=== PATIENT | male | born 1945 | race Caucasian/White ===

== ENCOUNTER 2021-06-17 19:39 | Inpatient (IN) | payer MEDICARE, OTHER, SELFPAY ==
--- NOTE | ~2021-06-17 | XR_ITS ---
EXAMINATION: XR chest 1V portable EXAM DATE: 06/20/2021 10:09 INDICATION: Increasing WBC. TECHNIQUE: Portable AP frontal chest x-ray was obtained. There is no prior study for comparison. FINDINGS: The lungs are clear. There are no pleural effusions. Cardiac silhouette is prominent but magnified on this AP technique. There is no pneumothorax suspected. The bones and soft tissues are unremarkable. IMPRESSION: No acute cardiopulmonary findings. Reviewed, dictated and finalized at location A.
--- NOTE | ~2021-06-17 | XR_ITS ---
EXAMINATION: XR abdomen/kub 1V EXAM DATE: 06/18/2021 14:40 INDICATION: Gross hematuria. TECHNIQUE: Frontal projection of the upper abdomen, frontal projection lower abdomen/pelvis for inter pretation. Correlation is made to CT abdomen pelvis same date. FINDINGS: There is moderate amount of colonic gas. Mild to moderate dextroscoliosis. Moderate lumbar spondylosis. No suspicious soft tissue calcifications identified. No small bowel obstruction. IMPRESSION: No suspicious calcifications. Reviewed, dictated and finalized at location A.
--- NOTE | ~2021-06-17 | XR_ITS ---
EXAMINATION: XR cystogram 1-2V EXAM DATE: 06/19/2021 12:16 INDICATION: Possible extraluminal contrast. Abnormal CT scan. Patient reports additional history of h aving 4.3 L of urine drained out of bladder upon Mejia catheter insertion. TECHNIQUE: Fluoroscopic guidance used during cystogram performed by Dr. Chapo Villarreal, radiologist, thr ough Mejia catheter in place on patient arrival. An Omnipaque 350/saline solution was used and allowe d to infuse through the Mejia catheter under gravity. Cripple Chaser image, fluoroscopic images and postevacua tion image were obtained. Total fluoroscopic time of 0.2 minutes. The DAP for this procedure was 66 mGym2. A total of 24 images obtained for the exam. Correlation is made to CT scan from yesterday. FINDINGS: Cripple Chaser image is unremarkable. A total of 850 mL saline (this includes 100 mL Omnipaque 350) was instilled into the patient's bladder. Patient did not report any discomfort in spite of this abno rmally high volume. There was no contrast extravasation, no retained contrast on the post evacuation image. No ureteral reflux was demonstrated. IMPRESSION: Abnormally high bladder capacity, likely accounts for appearance on CT. Reviewed, dictated and finalized at location A. IMPRESSION: Abnormally high bladder capacity, likely accounts for appearance o n CT.
--- NOTE | ~2021-06-17 | CT_ITS ---
EXAMINATION: CT abdomen pelvis wo/w con EXAM DATE: 06/18/2021 15:02 INDICATION: Gross hematuria. TECHNIQUE: Spiral CT of the abdomen and pelvis was performed following intravenous injection of 100 m L Omnipaque 350. Axial, coronal and sagittal images of the abdomen and pelvis were reviewed. The do se-length product (DLP) for this examination was 2233.01 mGy-cm. The exposure was tailored according to patient size (auto mA exposure control), and iterative reconstruction (ASIR) was used as addition al dose reduction technique. There is no prior study for comparison. FINDINGS: There is a Mejia catheter in position. Contrast within both ureters, the bladder and Mejia tube. There is also extraluminal contrast which is external to the bladder, appears to be contained s mall pockets, and may indicate fistulous tracts to small bowel loops. There are sigmoid colonic diver ticula, but no contrast within the colon. No inflammation surrounding the diverticula. No small bowel obstruction. The liver, spleen, adrenal glands and pancreas are unremarkable. Gallbladder is unremarkable. No bi liary obstruction. Portal and splenic veins are patent. Kidneys enhance symmetrically. There is no hydronephrosis. The prostate is unremarkable. There is no retroperitoneal or pelvic lymphadenopat hy. There is moderate to severe scattered arteriosclerotic disease. Small to moderate left inguinal , small right inguinal fat-containing hernias. There is moderate-sized umbilical fat-containing herni a. There are no findings to suggest appendicitis. The stomach and small bowel are unremarkable. There is expected amount of colonic stool. No free intraperitoneal gas. The heart is normal in size. T here are no pericardial or pleural effusions. The lung bases are unremarkable. There are no osteobl astic or osteolytic lesions identified. IMPRESSION: 1. Bladder Mejia catheter, extra luminal contrast anterior to bladder, contained pockets and/or fist ulous communications with small bowel. Correlate with urinalysis. 2. Moderate colonic diverticulosis. 3. Fat-containing hernias. Reviewed, dictated and finalized at location A. IMPRESSION: 1. Bladder Mejia catheter, extra luminal contrast anterior to bladder, contain ed pockets and/or fistulous communications with small bowel. Correlate with uri nalysis. 2. Moderate colonic diverticulosis. 3. Fat-containing hernias.
[2021-06-17 19:49] VITALS: BP 135/71; PULSE 118; RESP 18; TEMP 36.6; O2SAT 98
[2021-06-17 20:08] LABS: Add Urine Microscopic? YES; Appearance Urine Cloudy (Clear); Bilirubin Urine Negative (Negative); Blood Urine 2+ (Negative); Color Urine Amber (Yellow); Glucose Urine UA 3+ mg/dL (Negative); Ketones Urine Negative (Negative); Leukocyte Esterase Ur Negative LEU/UL (Negative); Mucus Urine Rare /lpf; Nitrate Urine Negative (Negative); Protein Urine 2+ mg/dL (Negative); RBC Urine >75 /hpf (0-2); Specific Grav Ur 1.016 (1.001-1.035); Squamous Epithelial Cell Urine Occasional /hpf (Few); Urobilinogen Urine Negative mg/dL (<2.0); WBC Urine 0-3 /hpf
[2021-06-17 20:09] LABS: Basophils Absolute Auto 0.1 K/mm3 (0.0-0.1); Basophils Percent Auto 0.5 % (0.2-1.2); Eosinophils Absolute Auto 0.1 K/mm3 (0-0.3); Eosinophils Percent Auto 0.9 % (0-4.4); Hematocrit 43.4 % (42.0-52.0); Hemoglobin 14.2 g/dL (14.0-18.0); Immature Granulocyte Absolute 0.06 K/mm3 (0.00-0.031); Immature Granulocyte Percent A 0.4 % (0-0.5); Lymphocytes Absolute Auto 2.08 K/mm3 (0.9-3.2); Lymphocytes Percent Auto 13.7 % (18.3-44.2); Mean Corpuscular HGB Conc 32.7 g/dl (32-36); Mean Corpuscular Hemoglobin 31.3 pg (26-34); Mean Corpuscular Volume 95.8 fl (80-100); Mean Platelet Volume 9.4 fl (7.4-10.4); Monocytes Absolute Auto 1.2 K/mm3 (0.1-0.6); Monocytes Percent Auto 7.7 % (2.6-8.5); Neutrophils Absolute Auto 11.7 K/mm3 (1.3-6.7); Neutrophils Percent Auto 76.8 % (45.5-73.1); Platelet Count Result 304 k/mm3 (150-375); Red Blood Count 4.53 M/mm3 (4.6-6.20); White Blood Count 15.2 K/mm3 (4.5-10.0)
[2021-06-17 20:17] LABS: Anion Gap 16 mmol/L (8-16); Blood Urea Nitrogen 29 mg/dL (9-20); Carbon Dioxide 19 mmol/L (22-30); Chloride 103 mmol/L (98-107); Estimated CRCL calculation 53 ml/min; Estimated Glomerular Filt Rate 54; Glucose 207 mg/dL (65-110); Sodium 138 mmol/L (137-145)
--- NOTE | 2021-06-17 20:35 | ED.MALEGU ---
HPI - Male Genitourinary General Chief complaint: Urogenital-Male Stated complaint: Hematuria Time Seen by Provider: 06/17/21 19:48 History of Present Illness HPI Narrative: Patient is a 75-year-old male who presents ER with hematuria. Began this afternoon. Denies burning urination urinary frequency urgency. Feels like he has been urinating normally. Denies any lower abdominal pain. No fevers or chills or sweats. Has not had issues like this before. He is not on blood thinners. Related Data Home Medications Medication Instructions Recorded Confirmed atorvastatin [Lipitor] 80 mg PO DAILY 06/17/21 cetirizine [Zyrtec] 10 mg PO DAILY 06/17/21 empagliflozin [Jardiance] 10 mg PO DAILY 06/17/21 hydrochlorothiazide 12.5 mg PO DAILY 06/17/21 lisinopril 20 mg PO DAILY 06/17/21 metformin 1,000 mg PO BID 06/17/21 pioglitazone [Actos] 45 mg PO DAILY 06/17/21 sitagliptin [Januvia] 100 mg PO DAILY 06/17/21 Allergies Allergy/AdvReac Type Severity Reaction Status Date / Time No Known Allergies Allergy Verified 06/17/21 20:09 Review of Systems Review of Systems: All systems reviewed & are unremarkable except as noted in HPI and below Constitutional: Constitutional: Denies chills, Denies fever(s) and Denies weakness Gastrointestinal: Gastrointestinal: Denies abdominal pain, Denies nausea and Denies vomiting Genitourinary: Genitourinary: Reports hematuria, Denies oliguria, Denies dysuria and Denies urinary frequency PMFSH Past Medical History Medical History (Updated 06/17/21 @ 21:53 by Brigido Allen MD) Diabetes Hyperlipidemia Hypertension Surgical History Surgical History No pertinent past surgical history Social History Social History Smoking status: Never smoker Exam Narrative: GENERAL: Well-appearing, well-nourished, and in no acute distress. HEAD: Normocephalic, atraumatic. CHEST: Clear to auscultation. No respiratory distress. HEART: Regular rate and rhythm. Normal peripheral pulses. ABDOMEN: Soft, nontender, nondistended. EXTREMITIES: Normal range of motion. No edema. NEURO: Alert and oriented x3. PSYCH: Normal mood and affect. Course Course Emergency Course: Patient with 4300 mL out of his Mejia that is bloody without clots. Discussed with urology. Will admit for observation for possible postobstructive diuresis. Recommends checking electrolytes every 8 hours, placing the patient on D5 half-normal saline at 75 mL/h, and patient may drink water at his desire. Patient aware of treatment plan. Admit to hospitalist service. Vital Signs Vital signs: Vital Signs Temperature 97.8 F 06/17/21 19:49 Pulse Rate 118 H 06/17/21 19:49 Respiratory Rate 18 06/17/21 19:49 Blood Pressure 135/71 06/17/21 19:49 Pulse Oximetry 98 06/17/21 19:49 Temperature 97.8 F 06/17/21 19:49 Pulse Rate 84 06/17/21 21:08 Respiratory Rate 18 06/17/21 21:08 Blood Pressure 138/67 06/17/21 21:08 Pulse Oximetry 98 06/17/21 21:08 MDM - Male Genitourinary Lab Data Result diagrams: 06/17/21 20:03 06/17/21 20:03 Labs: Lab Results 06/17/21 06/17/21 06/17/21 Range/Units 19:56 20:03 20:03 WBC 15.2 H (4.5-10.0) K/mm3 RBC 4.53 L (4.6-6.20) M/mm3 Hgb 14.2 (14.0-18.0) g/dL Hct 43.4 (42.0-52.0) % MCV 95.8 (80-100) fl MCH 31.3 (26-34) pg MCHC 32.7 (32-36) g/dl RDW 15.0 H (11.5-14.5) % Plt Count 304 (150-375) k/mm3 MPV 9.4 (7.4-10.4) fl Immature Gran % (Auto) 0.4 (0-0.5) % Neut % (Auto) 76.8 H (45.5-73.1) % Lymph % (Auto) 13.7 L (18.3-44.2) % Hart % (Auto) 7.7 (2.6-8.5) % Eos % (Auto) 0.9 (0-4.4) % Baso % (Auto) 0.5 (0.2-1.2) % Lymph # (Auto) 2.08 (0.9-3.2) K/mm3 Hart # (Auto) 1.2 H (0.1-0.6) K/mm3 Eos # (Auto) 0.1 (0-0.3) K/mm3 Bas
[2021-06-17 21:08] VITALS: BP 138/67; PULSE 84; RESP 18; O2SAT 98
--- NOTE | 2021-06-17 21:08 | PC.NURSE ---
ERP notified about 2800 ML urine .
--- NOTE | 2021-06-17 21:34 | PM.IMHP ---
H&P: HPI History of Present Illness Date/Time: 06/17/21 21:34 Chief Complaint: 75 years old male with past medical history of hyperlipidemia, hypertension, diabetes mellitus, presented to the hospital with hematuria no aggravating or relieving factor no difficulty with urination no fever or chills denies dysuria at the ER patient was found to have urine retention Mejia catheter was placed more than 4000 mL of urine was drained urology was consulted, plan to monitor electrolytes every 6-8 hours monitor urine output patient at risk of post obstructive diuresis will admit on IV fluid plan for CT scan in the morning per Urology. Review of Systems Review of Systems: All systems reviewed & are unremarkable except as noted in HPI and below PMFSH Past Medical History Medical History (Updated 06/17/21 @ 21:53 by Brigido Allen MD) Diabetes Hyperlipidemia Hypertension Surgical History Surgical History No pertinent past surgical history Social History Social History Smoking status: Never smoker Meds Home Medications and Allergies Home Medications Medication Instructions Recorded Confirmed Type atorvastatin [Lipitor] 80 mg PO DAILY 06/17/21 History cetirizine [Zyrtec] 10 mg PO DAILY 06/17/21 History empagliflozin [Jardiance] 10 mg PO DAILY 06/17/21 History hydrochlorothiazide 12.5 mg PO DAILY 06/17/21 History lisinopril 20 mg PO DAILY 06/17/21 History metformin 1,000 mg PO BID 06/17/21 History pioglitazone [Actos] 45 mg PO DAILY 06/17/21 History sitagliptin [Januvia] 100 mg PO DAILY 06/17/21 History Allergies Allergy/AdvReac Type Severity Reaction Status Date / Time No Known Allergies Allergy Verified 06/17/21 20:09 Vital Signs Vital Signs - 24 hr 06/17/21 19:49 06/17/21 21:08 Temperature 97.8 F Pulse Rate 118 H 84 Respiratory Rate 18 18 Blood Pressure 135/71 138/67 Pulse Oximetry 98 98 Exam Const: General: no acute distress HENMT: Mouth: Yes dry mucous membranes Eyes: Sclera: sclerae normal Neck: Neck: supple Resp: Auscultation: clear to auscultation bilaterally Cardio: Rate: regular rate Rhythm: regular rhythm GI: Inspection: non-distended GI Palp: Yes Soft to palpation Urinary Catheter: Urinary Catheter: patent and draining Skin: General skin exam: normal color Neuro: Speech: normal speech Motor exam (neuro): 5/5 motor strength present throughout Extrem: General: normal to inspection Psych: Mental Status: mental status grossly normal H&P: Results Labs Labs: Short CBC 06/17/21 Range/Units 20:03 WBC 15.2 H (4.5-10.0) K/mm3 Hgb 14.2 (14.0-18.0) g/dL Hct 43.4 (42.0-52.0) % Plt Count 304 (150-375) k/mm3 BMP 06/17/21 20:03 Sodium 138 Potassium 4.0 Chloride 103 Carbon Dioxide 19 L BUN 29 H Creatinine 1.30 Glucose 207 H Calcium 9.0 Urine 06/17/21 Range/Units 19:56 Urine Color Sheri (Yellow) Urine Appearance Cloudy H (Clear) Urine pH 6.0 (5.0-9.0) Ur Specific Eden 1.016 (1.001-1.035) Urine Protein 2+ H (Negative) mg/dL Urine Glucose (UA) 3+ H (Negative) mg/dL Assessment and Plan Assessment and plan (1) Obstructive uropathy: Code(s): N13.9 - Obstructive and reflux uropathy, unspecified Status: Acute Assessment and Plan: Status post Mejia catheter placement Concern for postobstructive diuresis Urology consult Monitor intake and output Monitor colitis 6-8 hours per urology recommendation Give D5 0.45 IV hydration Plan for CT scan in a.m. per Urology pending urology final recommendation (2) Hypertension: Code(s): I10 - Essential (primary) hypertension Status: Inactive Assessment and Plan: Pending home medication Continue to monitor (3) Hyperlipidemia: Code(s): E78.5 - Hyperlipidemia, unspecified Sta
[2021-06-17 22:10] VITALS: BP 138/67; PULSE 84; RESP 16; O2SAT 98
[2021-06-17 22:30] VITALS: BP 134/63; PULSE 99; RESP 18; TEMP 36.3; O2SAT 97
[2021-06-17 22:32] VITALS: BMI 30.9
[2021-06-17 22:37] LABS: Glucose Point of Care 129 mg/dl (65-105)
[2021-06-17] MEDS: DEXTROSE 5%/0.45% SOD CHL 1,000 ML 75 ML IV CONT (22:45)
--- NOTE | 2021-06-17 22:45 | ADMGEN ---
This patient, Hill Barbosa Jr., was admitted to Medical Room 341-01. Patient/family oriented to hospital policies and general routines including ID bracelet, bed and alarms, visiting hours, pain management, procedures, bathroom and other care routines, personal items, smoking policy, room service/diet, and visiting hours. Information on how to activate the Rapid Response Team has been discussed. Patient/Family are encouraged to report perceived risks to care and to ask questions if they do not understand what they are told or what they should do.
[2021-06-17 23:50] LABS: INR 1.1; Prothrombin Time 13.7 Seconds (11.1-14.7)
[2021-06-17 23:51] LABS: Partial Thromboplastin Time 28.6 SECONDS (22.3-36.8)
[2021-06-18 05:40] LABS: Alanine Aminotransferase 25 U/L (4-50); Albumin Level 3.8 g/dL (3.5-5.1); Alkaline Phosphatase 61 U/L (38-126); Anion Gap 7 mmol/L (8-16); Aspartate Amino Transferase 23 U/L (17-59); Bilirubin,Total 0.7 mg/dL (0.2-1.3); Blood Urea Nitrogen 26 mg/dL (9-20); Calcium 8.4 mg/dL (8.4-10.2); Carbon Dioxide 22 mmol/L (22-30); Chloride 106 mmol/L (98-107); Estimated CRCL calculation 68 ml/min; Estimated Glomerular Filt Rate > 60; Glucose 137 mg/dL (65-110); Sodium 135 mmol/L (137-145)
[2021-06-18 05:52] VITALS: BP 120/53; PULSE 63; RESP 16; TEMP 36.3; O2SAT 95
[2021-06-18 07:43] LABS: Glucose Point of Care 144 mg/dl (65-105)
[2021-06-18 08:26] VITALS: O2SAT 95
--- NOTE | 2021-06-18 09:30 | PM.IMPN ---
Progress Note: A&P Assessment and Plan (1) Obstructive uropathy: Code(s): N13.9 - Obstructive and reflux uropathy, unspecified Status: Acute Assessment and Plan: Status post Mejia catheter placement Concern for postobstructive diuresis Urology consult Monitor intake and output Monitor colitis 6-8 hours per urology recommendation Give D5 0.[address] scan is still pending (2) Hypertension: Code(s): I10 - Essential (primary) hypertension Status: Inactive Assessment and Plan: Current BP is 120/53 Continue home medications Trend blood pressure Adjust therapy as indicated (3) Hyperlipidemia: Code(s): E78.5 - Hyperlipidemia, unspecified Status: Inactive Assessment and Plan: Continue home statin (4) Diabetes: Code(s): E11.9 - Type 2 diabetes mellitus without complications Status: Inactive Assessment and Plan: Glucose 137 Continue home medications Sliding scale insulin diabetic diet Trend glucose Adjust therapy as indicated Time Spent With Patient Time with patient: Greater than 35 minutes Subjective Date/time seen: 06/18/21929 Interval history: Date/Time: 06/17/21 21:34 75 years old male with past medical history of hyperlipidemia, hypertension, diabetes mellitus, presented to the hospital with hematuria no aggravating or relieving factor no difficulty with urination no fever or chills denies dysuria at the ER patient was found to have urine retention Mejia catheter was placed more than 4000 mL of urine was drained urology was consulted, plan to monitor electrolytes every 6-8 hours monitor urine output patient at risk of post obstructive diuresis will admit on IV fluid plan for CT scan in the morning per Urology. Date/time: 06/18/21929 patient is doing okay today. Patient stated that he has no complaints at this time. he stated that he feels fine and has felt fine he wishes concerned about the blood in his urine. The urine is clearing up according to the Mejia. He denies any chest pain, shortness of breath, nausea, vomiting, diarrhea, constipation, weakness or fatigue. He denied any symptoms of BPH this time he said he goes regularly and he would have was has a good stream. Will repeat the labs to see if anything is correcting. Review of Systems Review of Systems: All systems reviewed & are unremarkable except as noted in HPI and below Exam Const: General: cooperative, healthy appearing, no acute distress, well developed, alert and awake Nutritional Appearance: well nourished Orientation/consciousness: patient oriented x3 Limitations: no limitations HENMT: Head: normal to inspection Ears: hearing grossly normal bilaterally General nose exam: Normal external nose present Mouth: Yes Normal oral and palatal mucosa present, Yes lip normal and Yes tongue normal Teeth and gingiva: abnormal tooth and associated gingiva and poor dentition Eyes: General: appearance normal, both eyes and all related structures Neck: Neck: normal visual inspection, full ROM, trachea midline and supple Chest: Chest palpation & inspection: normal inspection of the chest Resp: Effort & Inspection: normal respiratory effort and able to speak in complete sentences Auscultation: clear to auscultation bilaterally Cardio: Jugular venous distension: no JVD Rate: regular rate Rhythm: regular rhythm Heart sounds: S1 normal heart sound present and S2 normal heart sound present Peripheral pulses: Peripheral pulses 2+ throughout GI: Inspection: normal to inspection GI Palp: Yes Soft to palpation and No Tenderness to palpation present (GI) Auscultation: normal bowel sounds Skin: General skin exam: normal color and no rashes or lesions noted Lesions: no lesions Rashes: no rashes Trauma: no lacerations or abrasions Wounds: no wounds Hair: normal Nails: normal Neuro: General: patient oriented x3, moves all extremities a
[2021-06-18] MEDS: DEXTROSE 5%/0.45% SOD CHL 1,000 ML 75 ML IV CONT (10:48)
[2021-06-18 11:52] LABS: Glucose Point of Care 136 mg/dl (65-105)
[2021-06-18] MEDS: TAMSULOSIN HCL 0.4 MG CAPSULE PO (12:26)
[2021-06-18] MEDS: EMPAGLIFLOZIN 10 MG TABLET PO (12:27)
[2021-06-18] MEDS: LORATADINE 10 MG TABLET PO (12:27)
[2021-06-18] MEDS: PIOGLITAZONE HCL 45 MG TABLET PO (12:27)
[2021-06-18 12:28] LABS: Basophils Absolute Auto 0.1 K/mm3 (0.0-0.1); Basophils Percent Auto 0.6 % (0.2-1.2); Eosinophils Absolute Auto 0.1 K/mm3 (0-0.3); Hematocrit 38.4 % (42.0-52.0); Hemoglobin 12.7 g/dL (14.0-18.0); Immature Granulocyte Absolute 0.04 K/mm3 (0.00-0.031); Immature Granulocyte Percent A 0.4 % (0-0.5); Lymphocytes Absolute Auto 1.23 K/mm3 (0.9-3.2); Lymphocytes Percent Auto 13.1 % (18.3-44.2); Mean Corpuscular HGB Conc 33.1 g/dl (32-36); Mean Corpuscular Hemoglobin 31.3 pg (26-34); Mean Corpuscular Volume 94.6 fl (80-100); Mean Platelet Volume 9.6 fl (7.4-10.4); Monocytes Absolute Auto 0.7 K/mm3 (0.1-0.6); Monocytes Percent Auto 7.9 % (2.6-8.5); Neutrophils Absolute Auto 7.2 K/mm3 (1.3-6.7); Platelet Count Result 238 k/mm3 (150-375); Red Blood Count 4.06 M/mm3 (4.6-6.20); Red Cell Distribution Width 14.8 % (11.5-14.5); White Blood Count 9.4 K/mm3 (4.5-10.0)
[2021-06-18] MEDS: hydroCHLOROthiazide 12.5 MG CAPSULE PO (12:28)
[2021-06-18] MEDS: lisinopriL 20 MG TABLET PO (12:28)
[2021-06-18] MEDS: FLUTICASONE PROPIONATE 0.05% NA SPR 16 GM BTL (*BKC) 1 SPRAY NASAL (12:31)
[2021-06-18 12:39] LABS: Alanine Aminotransferase 26 U/L (4-50); Albumin Level 4.1 g/dL (3.5-5.1); Alkaline Phosphatase 68 U/L (38-126); Anion Gap 9 mmol/L (8-16); Aspartate Amino Transferase 25 U/L (17-59); Bilirubin,Total 0.8 mg/dL (0.2-1.3); Blood Urea Nitrogen 22 mg/dL (9-20); Calcium 8.6 mg/dL (8.4-10.2); Carbon Dioxide 22 mmol/L (22-30); Chloride 102 mmol/L (98-107); Estimated CRCL calculation 68 ml/min; Estimated Glomerular Filt Rate > 60; Glucose 184 mg/dL (65-110); Potassium 4.3 mmol/L (3.4-5.0); Sodium 133 mmol/L (137-145)
--- NOTE | 2021-06-18 12:45 | WPDURCON ---
Assessment and Plan Assessment and plan (1) Hematuria: Code(s): R31.9 - Hematuria, unspecified Status: Acute Assessment and Plan: Obtain urine culture, will obtain a CT scan with and without contrast to further evaluate. No cysto is needed today, his catheter is draining and no clots are present. We can plan to f/u as an outpatient for a cysto in the office. (2) Obstructive uropathy: Code(s): N13.9 - Obstructive and reflux uropathy, unspecified Status: Acute Assessment and Plan: Start Flomax, continue to monitor electrolytes and maintain fluid replacement with IV fluids. Electrolytes are stable for now. Urology Consult Note HPI Date Seen: 06/18/21 Requesting Physician: Darlene Nugent MD Primary Care Provider: Laci Triplett Narrative Narrative: Hill Barbosa Jr. is a 75 year old male who presented to the ER yesterday for acute onset of gross hematuria that developed that morning. He has no prior history of this. He denies dysuria, frequency, urgency or difficulty with urination. He also denies a history of BPH or taking BPH medications or medications for overactive bladder. He also denies a family history of prostate cancer. He had a catheter placed in the ER yesterday and 4300cc of urine was removed from his bladder. NO clots were noted, but urine has remained bloody. He is afebrile, WBC is 15.2, creatinine of 1.00. His H&H is stable and electrolytes are all stable. His UA suggests a UTI, urine cultures and blood cultures are pending. He denies being on anticoagulants at this time. He also has a regular MARIA EUGENIA and PSA with his PCP yearly. He was admitted and is being monitored for post obstructive diuresis. Review of Systems Cardiovascular: Cardiovascular: Denies chest pain Respiratory: Respiratory: Reports no additional respiratory complaints Gastrointestinal: Gastrointestinal: Denies abdominal pain, Denies nausea and Denies vomiting Genitourinary: Genitourinary: Reports hematuria, Denies dysuria, Denies flank pain, Denies testicular pain, Denies urinary frequency, Denies urinary hesitancy, Denies urinary incontinence and Denies urinary urgency PMFSH Past Medical History Medical History Diabetes Hyperlipidemia Hypertension Surgical History Surgical History No pertinent past surgical history Social History Social History Smoking packs per day: 1 Smoking cigarettes per day: 20.0 Years smoked: 14 Smoking pack-years: 14.00 Smoking status: Former smoker Tobacco type: cigarettes Smoking end date: 03/13/79 Alcohol intake: never Substance use: never Spiritual care concerns: No Meds Home Medications and Allergies Home Medications Medication Instructions Recorded Confirmed Type atorvastatin [Lipitor] 80 mg PO DAILY 06/17/21 06/17/21 History cetirizine [Zyrtec] 10 mg PO DAILY 06/17/21 06/17/21 History empagliflozin [Jardiance] 10 mg PO DAILY 06/17/21 06/17/21 History fluticasone propionate [Flonase 1 spray INTRANASAL PRN PRN 06/17/21 06/17/21 History Allergy Relief] hydrochlorothiazide 12.5 mg PO DAILY 06/17/21 06/17/21 History lisinopril 20 mg PO DAILY 06/17/21 06/17/21 History metformin 1,000 mg PO BID 06/17/21 06/17/21 History naproxen sodium 220 mg PO Q12H PRN 06/17/21 06/17/21 History pioglitazone [Actos] 45 mg PO DAILY 06/17/21 06/17/21 History sitagliptin [Januvia] 100 mg PO DAILY 06/17/21 06/17/21 History Allergies Allergy/AdvReac Type Severity Reaction Status Date / Time No Known Allergies Allergy Verified 06/17/21 20:09 Vital Signs Vital Signs - 24 hr 06/17/21 19:49 06/17/21 21:08 06/17/21 22:10 Temperature 97.8 F Pulse Rate 118 H 84 84 Respiratory Rate 18 18 16 Blood Pressure 135/71 138/67 138/67 Pulse Oximetry 98 98 98 06/17/21 22:30 04/0
[2021-06-18 14:20] VITALS: BP 117/50; PULSE 89; RESP 20; TEMP 36.6; O2SAT 96
[2021-06-18 16:25] LABS: Glucose Point of Care 140 mg/dl (65-105)
[2021-06-18 17:23] LABS: Basophils Percent Auto 0.4 % (0.2-1.2); Eosinophils Absolute Auto 0.1 K/mm3 (0-0.3); Eosinophils Percent Auto 1.3 % (0-4.4); Hematocrit 38.4 % (42.0-52.0); Hemoglobin 12.3 g/dL (14.0-18.0); Immature Granulocyte Absolute 0.02 K/mm3 (0.00-0.031); Immature Granulocyte Percent A 0.2 % (0-0.5); Lymphocytes Absolute Auto 1.31 K/mm3 (0.9-3.2); Lymphocytes Percent Auto 15.4 % (18.3-44.2); Mean Corpuscular Volume 96.7 fl (80-100); Mean Platelet Volume 9.4 fl (7.4-10.4); Monocytes Absolute Auto 0.8 K/mm3 (0.1-0.6); Monocytes Percent Auto 9.6 % (2.6-8.5); Neutrophils Absolute Auto 6.2 K/mm3 (1.3-6.7); Neutrophils Percent Auto 73.1 % (45.5-73.1); Platelet Count Result 227 k/mm3 (150-375); Red Blood Count 3.97 M/mm3 (4.6-6.20); Red Cell Distribution Width 14.9 % (11.5-14.5); White Blood Count 8.5 K/mm3 (4.5-10.0)
[2021-06-18] MEDS: ATORVASTATIN 40 MG TABLET 80 MG PO (17:23)
[2021-06-18 19:49] VITALS: BP 111/48; PULSE 99; RESP 18; TEMP 36.6; O2SAT 97
[2021-06-18 19:59] VITALS: O2SAT 97
[2021-06-18 20:18] LABS: Glucose Point of Care 240 mg/dl (65-105)
[2021-06-19 05:28] VITALS: BP 108/54; PULSE 77; RESP 16; TEMP 37.8; O2SAT 94
[2021-06-19 05:54] LABS: Alanine Aminotransferase 22 U/L (4-50); Albumin Level 3.7 g/dL (3.5-5.1); Alkaline Phosphatase 60 U/L (38-126); Anion Gap 8 mmol/L (8-16); Aspartate Amino Transferase 22 U/L (17-59); Bilirubin,Total 0.9 mg/dL (0.2-1.3); Blood Urea Nitrogen 22 mg/dL (9-20); Calcium 8.6 mg/dL (8.4-10.2); Carbon Dioxide 23 mmol/L (22-30); Chloride 102 mmol/L (98-107); Estimated CRCL calculation 68 ml/min; Estimated Glomerular Filt Rate > 60; Glucose 142 mg/dL (65-110); Sodium 133 mmol/L (137-145)
[2021-06-19 07:57] LABS: Glucose Point of Care 163 mg/dl (65-105)
[2021-06-19] MEDS: EMPAGLIFLOZIN 10 MG TABLET PO (08:42)
[2021-06-19] MEDS: hydroCHLOROthiazide 12.5 MG CAPSULE PO (08:42)
[2021-06-19] MEDS: LORATADINE 10 MG TABLET PO (08:42)
[2021-06-19] MEDS: PIOGLITAZONE HCL 45 MG TABLET PO (08:42)
[2021-06-19] MEDS: lisinopriL 20 MG TABLET PO (08:42)
[2021-06-19] MEDS: TAMSULOSIN HCL 0.4 MG CAPSULE PO (08:42)
[2021-06-19 08:45] VITALS: PULSE 77; RESP 16; O2SAT 94
--- NOTE | 2021-06-19 09:15 | PM.IMPN ---
Progress Note: A&P Assessment and Plan (1) Obstructive uropathy: Code(s): N13.9 - Obstructive and reflux uropathy, unspecified Status: Acute Assessment and Plan: Status post Mejia catheter placement Concern for postobstructive diuresis Urology consult thank you for your recommendations Monitor intake and output Give D5 0.[address] scan shows possible fistula to the small intestine, however, it states that it also appears to be in pockets. Urology is saying to continue catheter and will need to follow up with urology in the office for further workup and cystoscopy (2) Hypertension: Code(s): I10 - Essential (primary) hypertension Status: Inactive Assessment and Plan: Current BP is 108/54 Continue home medications Trend blood pressure Adjust therapy as indicated (3) Hyperlipidemia: Code(s): E78.5 - Hyperlipidemia, unspecified Status: Inactive Assessment and Plan: Continue home statin (4) Diabetes: Code(s): E11.9 - Type 2 diabetes mellitus without complications Status: Inactive Assessment and Plan: Glucose 142 Continue home medications Sliding scale insulin diabetic diet Trend glucose Adjust therapy as indicated Subjective Date/time seen: 06/19/21 11:15 Interval history: Date/Time: 06/17/21 21:34 75 years old male with past medical history of hyperlipidemia, hypertension, diabetes mellitus, presented to the hospital with hematuria no aggravating or relieving factor no difficulty with urination no fever or chills denies dysuria at the ER patient was found to have urine retention Mejia catheter was placed more than 4000 mL of urine was drained urology was consulted, plan to monitor electrolytes every 6-8 hours monitor urine output patient at risk of post obstructive diuresis will admit on IV fluid plan for CT scan in the morning per Urology. Date/time: 06/18/21929 patient is doing okay today. Patient stated that he has no complaints at this time. he stated that he feels fine and has felt fine he wishes concerned about the blood in his urine. The urine is clearing up according to the Mejia. He denies any chest pain, shortness of breath, nausea, vomiting, diarrhea, constipation, weakness or fatigue. He denied any symptoms of BPH this time he said he goes regularly and he would have was has a good stream. Will repeat the labs to see if anything is correcting. Date/Time 06/19/21914 He seems to be doing the same today. There are some clots and pink urine in the catheter. Will await urine culture. Do not think this is infection is more likely an obstruction problem. He denies any chest pain, shortness of breath, nausea, vomiting, weakness, or fatigue. Review of Systems Review of Systems: All systems reviewed & are unremarkable except as noted in HPI and below Exam Const: General: cooperative, healthy appearing, no acute distress, well developed, alert and awake Nutritional Appearance: well nourished Orientation/consciousness: patient oriented x3 Limitations: no limitations HENMT: Head: normal to inspection Ears: hearing grossly normal bilaterally General nose exam: Normal external nose present Mouth: Yes Normal oral and palatal mucosa present, Yes lip normal, Yes tongue normal and Yes dry mucous membranes Teeth and gingiva: abnormal tooth and associated gingiva and poor dentition Eyes: General: appearance normal, both eyes and all related structures Neck: Neck: normal visual inspection, full ROM, trachea midline and supple Chest: Chest palpation & inspection: normal inspection of the chest Resp: Effort & Inspection: normal respiratory effort and able to speak in complete sentences Auscultation: clear to auscultation bilaterally Cardio: Jugular venous distension: no JVD Rate: regular rate Rhythm: regular rhythm Heart sounds: S1 normal heart sound present and S2 normal heart s
--- NOTE | 2021-06-19 11:27 | WPDUROPN2 ---
Progress Note: A&P Assessment and Plan (1) Obstructive uropathy: Code(s): N13.9 - Obstructive and reflux uropathy, unspecified Status: Acute Assessment and Plan: He etiology is unclear but may have an atonic component. Recommend continued use of Mejia catheter. Will need urodynamics as an outpatient as well a cystoscopy. CT findings are not on this gripped and possibly secondary to a very large floppy bladder. Will plan a catheter cystogram as well. (2) Hematuria: Code(s): R31.9 - Hematuria, unspecified Status: Acute Assessment and Plan: Resolving at this time. Simply continue with Mejia catheter and will proceed with cystoscopy. If patient is still an inpatient on Monday can do it then otherwise will need to be done in the office. Subjective Subjective Date/Time Seen: 06/19/21 11:27 Principal diagnosis: Urinary retention Interval history: Mr. Valentin without any significant complaints at this time. His urine is clearing at this point time. Patient denied any history of nocturia frequency or incontinence prior to admission. This is surprising given the fact that he had up to 4 L of urine in his bladder. He is hemodynamically stable and a creatinine level of 1.0. CT scan reveals normal upper tracts but describes extraluminal contrast near the bladder with several differential diagnoses. It may simply be that contrast appears that way due to his significant floppy bladder. Ideally will recommend cystogram to see if they can delineate this further and at some point will need a cystoscopy. Will also need urodynamics as an outpatient as there is concern for an atonic bladder. Review of Systems Review of Systems: All systems reviewed & are unremarkable except as noted in HPI and below Exam Const: General: cooperative and no acute distress Resp: Effort & Inspection: normal respiratory effort Cardio: Rate: regular rate GI: Inspection: normal to inspection Objective Data Vital Signs Vital Signs: Vital Signs - 24 hr 06/18/21 14:20 06/18/21 19:49 06/18/21 19:59 Temperature 36.6 C 36.6 C Pulse Rate 89 99 Respiratory Rate 20 18 Blood Pressure 117/50 L 111/48 L Pulse Oximetry 96 97 97 06/19/21 05:28 06/19/21 08:45 Temperature 37.8 C H Pulse Rate 77 77 Respiratory Rate 16 16 Blood Pressure 108/54 L Pulse Oximetry 94 94 Intake/Output Intake/Output: Intake & Output 06/16/21 06/17/21 06/18/21 06/19/21 23:59 23:59 23:59 23:59 Intake Total 4990 940 Output Total 4400 3075 1800 Balance -4400 1915 -860 Meds/Results Medications: Active Medications Generic Name Dose Route Start Last Admin Trade Name Freq PRN Reason Stop Dose Admin Acetaminophen 650 mg 06/17/21 21:27 Acetaminophen 325 Mg Tablet PO Q4H PRN Mild Pain (1-3) or Fever Hydrocodone Bitart/Acetaminophen 1 tab 06/17/21 21:28 Hydrocodone/Acetaminophen (*Crx) 5-325 Mg Tablet PO Q4H PRN Pain Rated 4-6 Atorvastatin Calcium 80 mg 06/18/21 18:00 06/18/21 17:23 Atorvastatin 40 Mg Tablet PO 80 mg QPM FLOYD Administration Dextrose 12.5 gm 06/17/21 21:29 Dextrose 50% 25 Gm/50 Ml Syringe IV PUSH PRN PRN Hypoglycemia Protocol Empagliflozin 10 mg 06/18/21 12:05 06/19/21 08:42 Empagliflozin 10 Mg Tablet PO 10 mg DAILY FLOYD Administration Fluticasone Propionate 1 spray 06/18/21 11:57 06/18/21 12:31 Fluticasone Propionate 0.05% Na Spr 16 Gm Btl (*Bkc) NASAL 1 spray PRN PRN Administration Allergy Symptoms Glucagon 1 mg 06/17/21 21:29 Glucagon For Inj 1 Mg Vial IM PRN PRN Hypoglycemia Protocol Glucose 15 gm 06/17/21 21:29 Glucose Oral Gel 15 Gm Of Glucse In 37.5 Gm Tube PO PRN PRN Hypoglycemia Protocol Hydrochlorothiazide 12.5 mg 06/18/21 12:05 06/19/21 08:42 Hydrochlorothiazide 12.5 Mg Capsule PO 12.5 mg DAILY FLOYD Administration Dextrose 1,000 mls @ 100 mls/hr
[2021-06-19 11:50] LABS: Glucose Point of Care 172 mg/dl (65-105)
[2021-06-19 13:46] VITALS: BP 116/59; PULSE 90; RESP 16; TEMP 37.7; O2SAT 95
[2021-06-19 16:35] LABS: Glucose Point of Care 151 mg/dl (65-105)
[2021-06-19] MEDS: ATORVASTATIN 40 MG TABLET 80 MG PO (17:22)
[2021-06-19 20:41] VITALS: BP 105/47; PULSE 97; RESP 18; TEMP 36.6; O2SAT 96
[2021-06-19 20:44] LABS: Glucose Point of Care 154 mg/dl (65-105)
[2021-06-19 22:45] VITALS: O2SAT 96
[2021-06-20 05:29] LABS: Basophils Absolute Auto 0.1 K/mm3 (0.0-0.1); Basophils Percent Auto 0.5 % (0.2-1.2); Eosinophils Absolute Auto 0.3 K/mm3 (0-0.3); Eosinophils Percent Auto 2.7 % (0-4.4); Hemoglobin 13.3 g/dL (14.0-18.0); Immature Granulocyte Absolute 0.07 K/mm3 (0.00-0.031); Immature Granulocyte Percent A 0.6 % (0-0.5); Lymphocytes Absolute Auto 2.61 K/mm3 (0.9-3.2); Lymphocytes Percent Auto 22.4 % (18.3-44.2); Mean Corpuscular HGB Conc 33.3 g/dl (32-36); Mean Corpuscular Hemoglobin 30.9 pg (26-34); Mean Platelet Volume 9.6 fl (7.4-10.4); Monocytes Absolute Auto 1.1 K/mm3 (0.1-0.6); Monocytes Percent Auto 9.7 % (2.6-8.5); Neutrophils Absolute Auto 7.5 K/mm3 (1.3-6.7); Neutrophils Percent Auto 64.1 % (45.5-73.1); Platelet Count Result 287 k/mm3 (150-375); Red Cell Distribution Width 14.7 % (11.5-14.5); White Blood Count 11.7 K/mm3 (4.5-10.0)
[2021-06-20 05:38] LABS: Alanine Aminotransferase 24 U/L (4-50); Albumin Level 4.3 g/dL (3.5-5.1); Alkaline Phosphatase 66 U/L (38-126); Anion Gap 12 mmol/L (8-16); Aspartate Amino Transferase 26 U/L (17-59); Blood Urea Nitrogen 32 mg/dL (9-20); Calcium 8.7 mg/dL (8.4-10.2); Carbon Dioxide 22 mmol/L (22-30); Chloride 99 mmol/L (98-107); Estimated CRCL calculation 53 ml/min; Estimated Glomerular Filt Rate 54; Glucose 164 mg/dL (65-110); Magnesium 1.9 mg/dL (1.6-2.3); Potassium 4.2 mmol/L (3.4-5.0); Sodium 133 mmol/L (137-145)
[2021-06-20 06:06] VITALS: BP 114/51; PULSE 86; RESP 18; TEMP 36.3; O2SAT 96
--- NOTE | 2021-06-20 07:18 | WPDUROPN2 ---
Progress Note: A&P Assessment and Plan (1) Obstructive uropathy: Code(s): N13.9 - Obstructive and reflux uropathy, unspecified Status: Acute Assessment and Plan: Urine culture was negative. Will plan on Mag 3 renal scan with Lasix washout Subjective Subjective Date/Time Seen: 06/20/21 07:18 Principal diagnosis: Right pelvic kidney with hydroureter and atrophy Interval history: No significant complaints. Review of Systems Review of Systems: All systems reviewed & are unremarkable except as noted in HPI and below Exam Const: General: cooperative Objective Data Vital Signs Vital Signs: Vital Signs - 24 hr 06/19/21 08:45 06/19/21 13:46 06/19/21 20:41 Temperature 37.7 C H 36.6 C Pulse Rate 77 90 97 Respiratory Rate 16 16 18 Blood Pressure 116/59 L 105/47 L Pulse Oximetry 94 95 96 06/19/21 22:45 06/20/21 06:06 Temperature 36.3 C L Pulse Rate 86 Respiratory Rate 18 Blood Pressure 114/51 L Pulse Oximetry 96 96 Intake/Output Intake/Output: Intake & Output 06/17/21 06/18/21 06/19/21 06/20/21 23:59 23:59 23:59 23:59 Intake Total 4990 1420 550 Output Total 4400 3075 3050 450 Balance -4400 1915 -1630 100 Meds/Results Medications: Active Medications Generic Name Dose Route Start Last Admin Trade Name Freq PRN Reason Stop Dose Admin Acetaminophen 650 mg 06/17/21 21:27 Acetaminophen 325 Mg Tablet PO Q4H PRN Mild Pain (1-3) or Fever Hydrocodone Bitart/Acetaminophen 1 tab 06/17/21 21:28 Hydrocodone/Acetaminophen (*Crx) 5-325 Mg Tablet PO Q4H PRN Pain Rated 4-6 Atorvastatin Calcium 80 mg 06/18/21 18:00 06/19/21 17:22 Atorvastatin 40 Mg Tablet PO 80 mg QPM FLOYD Administration Dextrose 12.5 gm 06/17/21 21:29 Dextrose 50% 25 Gm/50 Ml Syringe IV PUSH PRN PRN Hypoglycemia Protocol Empagliflozin 10 mg 06/18/21 12:05 06/19/21 08:42 Empagliflozin 10 Mg Tablet PO 10 mg DAILY FLOYD Administration Fluticasone Propionate 1 spray 06/18/21 11:57 06/18/21 12:31 Fluticasone Propionate 0.05% Na Spr 16 Gm Btl (*Bkc) NASAL 1 spray PRN PRN Administration Allergy Symptoms Glucagon 1 mg 06/17/21 21:29 Glucagon For Inj 1 Mg Vial IM PRN PRN Hypoglycemia Protocol Glucose 15 gm 06/17/21 21:29 Glucose Oral Gel 15 Gm Of Glucse In 37.5 Gm Tube PO PRN PRN Hypoglycemia Protocol Hydrochlorothiazide 12.5 mg 06/18/21 12:05 06/19/21 08:42 Hydrochlorothiazide 12.5 Mg Capsule PO 12.5 mg DAILY FLOYD Administration Dextrose 1,000 mls @ 100 mls/hr 06/17/21 21:29 Dextrose 5% 1,000 Ml IVPB PRN PRN Hypoglycemia Protocol Insulin Aspart 3 - 6 units 06/18/21 08:00 06/19/21 16:34 Insulin Aspart (*Bkc) 100 Units/Ml SUB-Q Not Given [facility] Protocol Lisinopril 20 mg 06/18/21 12:05 06/19/21 08:42 Lisinopril 20 Mg Tablet PO 20 mg DAILY FLOYD Administration Loratadine 10 mg 06/18/21 12:05 06/19/21 08:42 Loratadine 10 Mg Tablet PO 07/19/21 12:04 10 mg DAILY FLOYD Administration Morphine Sulfate 4 mg 06/17/21 21:28 Morphine Sulfate (*Crx) 4 Mg/Ml Inj IV PUSH Q2H PRN Pain Rated 7-10 Naproxen 220 mg 06/18/21 11:57 Naproxen Sodium 220 Mg Tablet PO Q12H PRN SCIATIC NERVE PAIN Ondansetron HCl 4 mg 06/17/21 21:28 Ondansetron Inj 4 Mg/2 Ml Vial IV PUSH Q4H PRN Nausea Pioglitazone HCl 45 mg 06/18/21 12:10 06/19/21 08:42 Pioglitazone Hcl 45 Mg Tablet PO 45 mg DAILY FLOYD Administration Sitagliptin Phosphate 100 mg 06/18/21 18:00 06/19/21 17:22 Sitagliptin 100 Mg Tablet PO 100 mg QPM FLOYD Administration Tamsulosin HCl 0.4 mg 06/18/21 10:35 06/19/21 08:42 Tamsulosin Hcl 0.4 Mg Capsule PO 0.4 mg QAM FLOYD Administration Radiology Results: ITS Impressions Abdomen X-Ray 06/18/21 14:43 IMPRESSION: No suspicious calcifications. Abdomen
[2021-06-20 07:34] VITALS: O2SAT 96
[2021-06-20 07:34] LABS: Glucose Point of Care 144 mg/dl (65-105)
[2021-06-20] MEDS: EMPAGLIFLOZIN 10 MG TABLET PO (08:35)
[2021-06-20] MEDS: LORATADINE 10 MG TABLET PO (08:35)
[2021-06-20] MEDS: hydroCHLOROthiazide 12.5 MG CAPSULE PO (08:35)
[2021-06-20] MEDS: TAMSULOSIN HCL 0.4 MG CAPSULE PO (08:36)
[2021-06-20] MEDS: lisinopriL 20 MG TABLET PO (08:36)
[2021-06-20] MEDS: PIOGLITAZONE HCL 45 MG TABLET PO (08:36)
--- NOTE | 2021-06-20 09:15 | PM.DS ---
DS: Admitting Diagnosis Discharge Date 06/20/21 0915 Admitting Diagnosis Urinary retention/obstruction DS: Discharge Diagnosis Discharge Diagnosis (1) Obstructive uropathy: Code(s): N13.9 - Obstructive and reflux uropathy, unspecified Status: Acute Assessment and Plan: Status post Mejia catheter placement Concern for postobstructive diuresis Urology consult thank you for your recommendations Monitor intake and output Give D5 0.[address] scan shows possible fistula to the small intestine, however, it states that it also appears to be in pockets. Urology is saying to continue catheter and will need to follow up with urology in the office for further workup and cystoscopy (2) Hypertension: Code(s): I10 - Essential (primary) hypertension Status: Inactive Assessment and Plan: Current BP is 114/51 Continue home medications Trend blood pressure Adjust therapy as indicated (3) Hyperlipidemia: Code(s): E78.5 - Hyperlipidemia, unspecified Status: Inactive Assessment and Plan: Continue home statin (4) Diabetes: Code(s): E11.9 - Type 2 diabetes mellitus without complications Status: Inactive Assessment and Plan: Glucose 164 Continue home medications Sliding scale insulin diabetic diet Trend glucose Adjust therapy as indicated DS: Summary Hospital Course Hospital Course: Patient is a 75-year-old male with a past medical history of hyperlipidemia, hypertension, diabetes who presented the hospital with hematuria with no aggravating or relieving factors or difficulty with urine. Upon arrival patient was noted to have more than 4000 mL of urine in his bladder which was drained by Mejia placement. CT of the abdomen showed possible fistula and pockets of bladder. Urology was consulted and is wanting to do further workup in the office including a cystoscopy and voiding trial. It was noted that patient has been having blood clots and pink tinged urine at times. Currently catheter is draining a yellow urine. Upon arrival patient was also noted to have an elevated white count. UA was obtained and sent which showed no growth. Patient denies any chest pain, shortness of breath, nausea, vomiting, diarrhea, constipation, weakness or fatigue. Chest x-ray was repeated today due to a slight elevation of white blood cell however it was noted that patient did have an obstruction and labs were repeated with a white count trending downward. Patient is comfortable with coming home and will be going home with the urinary catheter. Labs and vital signs are stable at this time. Patient will need to follow up with Urology as instructed. Status at Discharge Functional status at discharge: independent ambulation Overall status at discharge: patient is progressing back to baseline Time Spent with Patient Time attestation: Total time spent providing and/or coordinating discharge services: 48 minutes Time spent: Greater than 30 minutes Specific discharge activities: Diagnostic testing, chart review, developing a treatment plan, education, care coordination documentation, physical exam, result review Exam Const: General: cooperative, healthy appearing, no acute distress, well developed, alert and awake Nutritional Appearance: well nourished Orientation/consciousness: patient oriented x3 Limitations: no limitations HENMT: Head: normal to inspection Ears: hearing grossly normal bilaterally General nose exam: Normal external nose present Mouth: Yes Normal oral and palatal mucosa present, Yes lip normal, Yes tongue normal and Yes dry mucous membranes Teeth and gingiva: abnormal tooth and associated gingiva and poor dentition Eyes: General: appearance normal, both eyes and all related structures Sclera: sclerae normal Neck: Neck: normal visual inspection, full ROM, trachea midline and supple Chest: Chest palpation & inspection
[2021-06-20 10:31] LABS: Basophils Absolute Auto 0.1 K/mm3 (0.0-0.1); Basophils Percent Auto 0.5 % (0.2-1.2); Eosinophils Absolute Auto 0.2 K/mm3 (0-0.3); Eosinophils Percent Auto 1.4 % (0-4.4); Hemoglobin 12.6 g/dL (14.0-18.0); Immature Granulocyte Absolute 0.05 K/mm3 (0.00-0.031); Immature Granulocyte Percent A 0.5 % (0-0.5); Lymphocytes Absolute Auto 1.15 K/mm3 (0.9-3.2); Mean Corpuscular HGB Conc 32.3 g/dl (32-36); Mean Corpuscular Volume 95.8 fl (80-100); Mean Platelet Volume 9.4 fl (7.4-10.4); Monocytes Absolute Auto 0.9 K/mm3 (0.1-0.6); Monocytes Percent Auto 8.2 % (2.6-8.5); Neutrophils Absolute Auto 8.2 K/mm3 (1.3-6.7); Neutrophils Percent Auto 78.4 % (45.5-73.1); Platelet Count Result 234 k/mm3 (150-375); Red Blood Count 4.07 M/mm3 (4.6-6.20); Red Cell Distribution Width 14.7 % (11.5-14.5); White Blood Count 10.5 K/mm3 (4.5-10.0)
[2021-06-20 11:44] LABS: Glucose Point of Care 155 mg/dl (65-105)
== END 2021-06-20 13:45 | disposition home or self-care (01) | DRG 700 ==
LOC: ANHED 20:53 → ANH3MED 21:48
PROVIDERS: Admitting Provider Internal Medicine; Emergency Provider Emergency Medicine; Visit Provider Nurse Practitioner
DX: N13.9 Obstructive and reflux uropathy, unspecified (principal); R31.0 Gross hematuria; I10 Essential (primary) hypertension; E78.5 Hyperlipidemia, unspecified; E11.9 Type 2 diabetes mellitus without complications; Z79.84 Long term (current) use of oral hypoglycemic drugs; Z79.899 Other long term (current) drug therapy
CPT/HCPCS: 36415; 51600; 51702; 71045; 74018; 74178; 74430; 80048; 80053; 81001; 82948; 83735; 85025; 85610; 85730; 87040; 87086; 96360; 96361; 99285; A9270; G0378; Q9967

== ENCOUNTER 2021-08-13 12:12 | Outpatient (CLI) | payer MEDICARE, OTHER, SELFPAY ==
--- NOTE | 2021-08-13 12:30 | ECG_ITS ---
Measurements Intervals [place] Rate: 97 P: 22 WI: 204 QRS: -53 QRSD: 117 T: 34 QT: 325 QTc: 414 Interpretive Statements SINUS RHYTHM LEFT ANTERIOR FASCICULAR BLOCK [QRS AXIS <= -45, QR IN I, RS IN II] POSSIBLE ANTERIOR MYOCARDIAL INFARCTION [30 ms Q WAVE IN V3/V4, OR R < 0.2 mV IN V4], OF INDETERMINATE AGE ABNORMAL ECG NO PREVIOUS ECG AVAILABLE FOR COMPARISON Electronically Signed On 08-13-2021 17:17:48 CDT by Spencer Nuno M.D.
== END 2021-08-13 12:13 | disposition home or self-care (01) ==
PROVIDERS: Visit Provider Urology
DX: Z01.818 Encounter for other preprocedural examination (principal); I10 Essential (primary) hypertension; R94.31 Abnormal electrocardiogram [ECG] [EKG]
CPT/HCPCS: 93005

== ENCOUNTER 2021-08-17 00:19 | Day surgery (SDC) | payer MEDICARE, OTHER, SELFPAY ==
[2021-08-13 09:02] VITALS: BMI 30.7
--- NOTE | 2021-08-13 09:32 | PC.NURSE ---
Report to the Outpatient Waiting Room, entrance under the green pavilion located off [facility], at time __11:00AM on date __08/17/21 . OR Time: __1:00PM . - You and your visitor will be asked a series of questions to screen for COVID 19 for your protection. - Only one visitor is allowed at this time. - The patient visitor is requested to leave or wait in car when not with patient. - A mask is required within the hospital. Patients may have clear liquids (water, carbonated beverages, clear teas, apple juice) until 3 hours prior to surgery with a maximum of 20 ounces. - No food from midnight until time of surgery - Infants may have breast milk until 4 hours before surgery, formula 6 hours prior to surgery. - Children will be allowed to drink immediately following surgery. If applicable, please bring a bottle or sippy cup to assist with drinking. Juice, water, soda, and popsicles are readily available. For infants on formula, please bring formula the day of surgery. Pacifiers are allowed. Take the following medications with a SIP of water the morning of surgery: NONE Medications to discontinue per physician ___HOLD NAPROXEN 7 DAYS PRE-OP PER DR LIEBERMAN Date to take last dose___08/10/21 Please no make-up, nail belgian, hairspray, perfume, deodorant, or body powder the day of surgery. No jewelry (including any body piercings) or valuables the day of surgery, leave them at home. Please take a shower or bath the night before, or the morning of, surgery with an antibacterial soap. Wear comfortable, loose fitting clothing. Children are encouraged to wear pajamas. - Jewelry must be removed prior to entering the operating room. Rings and piercings that are not removed may be cut off. - The hospital will not accept responsibility for valuables. - Please leave all valuables, including medications, at home the day of surgery. If you are going home after surgery, a licensed refuse driver must drive you home. - NO public transportation without another adult. - We recommend that an adult stay with you for 24 hours following discharge. - We also recommend that you do not drive, make important decision, drink alcoholic beverages, or take any drugs that were not prescribed by your health care provider for at least 24 hours after your discharge time. For Pediatric surgeries, we recommend two adults accompany the child home (only one inside the building at this time). Follow any additional instructions given to you from your surgeon. If you or anyone in your household have experienced Covid symptoms in the past week, please notify your surgeon or the nurse liaison at the phone number below for possible testing. Telephone instructions given to __PATIENT and asked if any additional questions and then verbalized understanding. Patient advised to call surgeon office or pre surgery nurse liaison [phone] if any additional questions.
--- NOTE | 2021-08-16 13:47 | P.PNAN_ITS ---
Anes - Initial Pre Proc Eval Procedure: Operation Date: 08/17/21 13:00 Proposed Procedures p Trans Urethral Resection Bladder Tumor - Juan Taylor MD Date/Time: 08/16/21 13:47 Surgeon: Juan Taylor MD Pre Op Diagnosis: bladder lesion, atonic bladder Patient Data Age: 75 Gender: M Height: 1.8 m Weight: 100 kg Allergies Allergy/AdvReac Type Severity Reaction Status Date / Time No Known Allergies Allergy Verified 08/13/21 08:55 Home Medications Medication Instructions Recorded Confirmed Type atorvastatin 80 mg tablet (Lipitor) 80 mg PO HS 06/17/21 08/13/21 History cetirizine 10 mg tablet (Zyrtec) 10 mg PO QAM 06/17/21 08/13/21 History empagliflozin 10 mg tablet 10 mg PO QAM 06/17/21 08/13/21 History (Jardiance) fluticasone propionate 50 1 spray intranasal PRN PRN Allergy 06/17/21 08/13/21 History mcg/actuation nasal Symptoms spray,suspension (Flonase Allergy Relief) hydrochlorothiazide 12.5 mg capsule 12.5 mg PO QAM 06/17/21 08/13/21 History lisinopril 20 mg tablet 20 mg PO QAM 06/17/21 08/13/21 History metformin 1,000 mg tablet 1,000 mg PO BID 06/17/21 08/13/21 History pioglitazone 45 mg tablet (Actos) 45 mg PO QAM 06/17/21 08/13/21 History sitagliptin 100 mg tablet (Januvia) 100 mg PO QPM 06/17/21 08/13/21 History tamsulosin 0.4 mg capsule 0.4 mg PO QAM #30 caps 06/20/21 08/13/21 Rx naproxen 500 mg tablet 500 mg PO BID PRN Pain 08/13/21 08/13/21 History Patient hx anesthesia problems: none Family hx anesthesia problems: none Results Review: All pre-operative results and documents have been reviewed as part of the pre- operative evaluation. [facility] Past Medical History Medical History (Updated 08/16/21 @ 13:48 by Chi Montaño MD) Diabetes Hyperlipidemia Hypertension Obesity Surgical History Surgical History No pertinent past surgical history Social History Social History Smoking packs per day: 1 Smoking cigarettes per day: 20.0 Years smoked: 20 Smoking pack-years: 20.00 Smoking status: Former smoker Tobacco type: cigarettes Smoking end date: 09/10/82 Alcohol intake: never Substance use: never Living arrangements: with family Additional living arrangements comments: Spiritual care concerns: No Anes - Eval Final PreProcedure Day of Procedure 08/16/21 13:47 Patient weight: obese Heart: regular rate and rhythm Lungs: clear to auscultation and normal air movement Airway: Mallampati scale class II Neurological: alert and oriented Last oral intake: >/= 8 hours ASA classification: III Emergent: no Anesthetic plan: proceed Anesthesia type and monitoring: general LMA Results Review: All pre-operative results and documents have been reviewed as part of the pre- operative evaluation. Informed Consent: The patient's anesthetic plan and its attendant risks and benefits were discussed with the patient/family/POA. Questions were solicited and answers provided to the satisfaction of the patient/family/POA.
[2021-08-17] VITALS (8 sets, daily range): BP systolic 98–138; BP diastolic 55–80; PULSE 64–86; RESP 10–16; TEMP 36.3–36.6; O2SAT 95–97
[2021-08-17 11:56] LABS: Glucose Point of Care 131 mg/dl (65-105)
[2021-08-17] MEDS: LACTATED RINGERS 1,000 ML 30 ML IV CONT (12:02)
--- NOTE | 2021-08-17 12:20 | WPDHPUPDATE1 ---
History and Physical Update Update Date/Time: 08/17/21 12:20 History and Physical has been reviewed, including an updated exam of the patient. There are NO changes in the patient's condition. Risks, benefits, and alternatives have been discussed and questions answered. Patient agrees to proceed with procedure.
[2021-08-17] MEDS: ceFAZolin 2 GM/D5W 50 ML 2 GM/50 ML BAG IVPB (13:32)
--- NOTE | 2021-08-17 13:59 | P.OP_ITS ---
Procedure Note - Detailed Date of Procedure 08/17/21 Pre-op Diagnosis bladder lesion, atonic bladder Post-op Diagnosis Same Procedure Performed TURBT small lesion 1 cm and fulguration Surgeon Juan Taylor MD Anesthesia General Findings Extremely large capacity floppy bladder. Small 1 cm lesion along the posterior wall. Description of Procedure Patient is taken to the operative suite correctly identified. Once anesthesia was obtained was placed in dorsal lithotomy position and prepped and draped usual sterile fashion. Twenty-two [place] scope inserted the bladder. There were no urethral strictures prostate is nonobstructive the bladder itself was extremely floppy with a large capacity. We could not get our instrument to do a cold cup biopsy. We exchanged out for a 24 [place] resectoscope loop. At this point time we did a transurethral resection of distal lesion. Fulgurated the base. 2% viscous lidocaine was inserted urethra patient is taken recovery stable condition. Family resume intermittent catheterization. They are to call for path results in 1 weeks time. Estimated Blood Loss 0 Drains No Packing No Pathology Yes Complications No immediate complications Condition Stable Disposition PACU
[2021-08-17 14:20] LABS: Glucose Point of Care 107 mg/dl (65-105)
== END 2021-08-17 15:25 | disposition home or self-care (01) ==
PROVIDERS: Visit Provider Urology
PROC: 0TBB8ZZ Excision of Bladder, Via Natural or Artificial Opening Endoscopic (ICD-10-PCS; CPT 52234; principal; 2021-08-17 13:00)
DX: C67.4 Malignant neoplasm of posterior wall of bladder (principal); Z79.84 Long term (current) use of oral hypoglycemic drugs; E11.9 Type 2 diabetes mellitus without complications; E78.5 Hyperlipidemia, unspecified; I10 Essential (primary) hypertension; E66.9 Obesity, unspecified; Z68.31 Body mass index [BMI] 31.0-31.9, adult; Z87.891 Personal history of nicotine dependence
CPT/HCPCS: 52234; 82948; 88305; A9270; J0690; J2370; J2704; J3010; J7120

== ENCOUNTER 2023-10-24 06:50 | Outpatient (CLI) | payer MEDICARE, OTHER, SELFPAY ==
[2023-10-19 12:33] VITALS: BMI 30.7
--- NOTE | 2023-10-19 12:35 | PC.NURSE ---
Pre Radiology instructions Report to the outpatient oniel reddy on date __10/24/23___ at time __8:30am for procedure Time: _10:30am___ YOU MAY BE MONITORED AT HOSPITAL FOR UP TO 4 HOURS AFTER YOUR PROCEDURE. A visitor will be allowed to accompany the patient into the hospital. You and your visitor will be asked to self-screen and do not enter if you have any COVID symptoms. A mask is OPTIONAL within the hospital. Patients are to have no food or drink 6 hours prior to procedure time Driving will be restricted after the procedure, you must have a person to drive you home. Labs will be drawn in preop area and once reviewed, you will be taken to radiology area for procedure. When the procedure is completed, you will be taken to outpatient where you will be monitored for several hours. You may have one visitor in this area. Other than holding anti-coagulants, patient may take other medication(s) as scheduled. Prior to your appointment date patients are instructed to hold anti-coagulants after discussing with ordering provider to stop. If unable to discontinue anti-coagulants please notify radiologist. ? No aspirin or warfarin (Coumadin) for 7 days prior to the procedure. ? No clopidogrel (Plavix), ticagrelor (Brilinta), prasugrel (Effient) or dabigatran (Pradaxa) for 5 days prior to the procedure. ? No rivaroxaban (Xarelto), apixaban (Eliquis), dipyridamole (Aggrenox or Persantine) or cilostazol (Pletal) for 2 days prior to the procedure. Medications to discontinue per physician: __none Date to take last dose: Please leave all valuables, including medications, at home the day of procedure. The hospital will not accept responsibility for valuables. Wear comfortable, loose fitting clothing.? Follow any additional instructions given to you from ordering provider. Telephone instructions given to ____patient and asked if any additional questions and then verbalized understanding. Patient advised to call scheduling provider office or registration scheduling [phone] if any additional questions.
[2023-10-24] VITALS (12 sets, daily range): BP systolic 105–135; BP diastolic 51–60; PULSE 84–103; RESP 16–20; TEMP 36.3; O2SAT 95–98
--- NOTE | ~2023-10-24 | US_ITS ---
EXAMINATION: US biopsy renal DATE: 10/24/2023 11:23 INDICATION: Sudden cirrhosis. Hematuria. Chronic MGN. TECHNIQUE: The procedure including the risks, benefits, and alternatives was discussed with the patie nt. Risks discussed included bleeding and infection. The patient understood the risks and agreed to p roceed. A timeout was performed to verify the patient's name, date of , and procedure to be p erformed. The skin overlying the left kidney was prepped and draped in usual sterile fashion. Anest hetic was administered with 1% lidocaine subcutaneously. An 18 gauge core biopsy needle was then use d to obtain 4 core biopsy specimens under continuous sonographic guidance. The entry site was cleaned and dressed. There were no immediate complications. FINDINGS: Ultrasound images demonstrate the needle in the kidney. IMPRESSION: 1. Ultrasound-guided random left kidney core needle biopsy. Reviewed, dictated and finalized at location A.
[2023-10-24 09:07] LABS: Mean Platelet Volume 9.2 fl (7.4-10.4); Platelet Count Result 305 k/mm3 (150-375)
[2023-10-24 09:16] LABS: Prothrombin Time 14.1 Seconds (11.1-14.7)
[2023-10-24 11:45] LABS: Glucose Point of Care 123 mg/dl (65-105)
--- NOTE | 2023-10-24 14:32 | SUR.PHASEII ---
Pt straight caths at home 3x a day. Pt requesting straight cath kit. Hospital kit provided and assisted patient with straight cathing.
== END 2023-10-24 15:35 | disposition home or self-care (01) ==
PROVIDERS: Referring Provider Internal Medicine Nephrology; Visit Provider Radiology Diagnostic Radiology
PROC: (CPT 76942; principal; 2023-10-24 10:30)
DX: I12.9 Hypertensive chronic kidney disease with stage 1 through stage 4 chronic kidney disease, or unspecified chronic kidney disease (principal); N18.31 Chronic kidney disease, stage 3a; E11.21 Type 2 diabetes mellitus with diabetic nephropathy
CPT/HCPCS: 36415; 50200; 76942; 82948; 85049; 85610; 88300; 88305; 88313; 88329; 88346; 88348; 88350

== ENCOUNTER 2024-03-14 12:16 | Outpatient (CLI) | payer MEDICARE, OTHER, SELFPAY ==
--- NOTE | 2024-03-14 12:34 | ECG_ITS ---
Test Date: 2024-03-14 12:54:58 Measurements Intervals [place] Rate: 102 P: -27 WA: 206 QRS: -61 QRSD: 121 T: 76 QT: 338 QTc: 442 Interpretive Statements SINUS TACHYCARDIA WITH OCCASIONAL SUPRAVENTRICULAR PREMATURE COMPLEXES LEFT ANTERIOR FASCICULAR BLOCK [QRS AXIS <= -45, QR IN I, RS IN II] POSSIBLE ANTERIOR MYOCARDIAL INFARCTION [30 ms Q WAVE IN V3/V4, OR R < 0.2 mV IN V4], OF INDETERMINATE AGE No previous ECG available for comparison Electronically Signed On 03-18-2024 14:30:57 [employer] by Home Dominguez M.D.
[2024-03-14 13:23] LABS: Basophils Absolute Auto 0.1 K/mm3 (0.0-0.1); Basophils Percent Auto 0.7 % (0.2-1.2); Eosinophils Absolute Auto 0.1 K/mm3 (0-0.3); Eosinophils Percent Auto 1.1 % (0-4.4); Hematocrit 39.2 % (42.0-52.0); Hemoglobin 12.9 g/dL (14.0-18.0); Immature Granulocyte Absolute 0.07 K/mm3 (0.00-0.031); Immature Granulocyte Percent A 0.7 % (0-0.5); Lymphocytes Absolute Auto 1.72 K/mm3 (0.9-3.2); Mean Corpuscular HGB Conc 32.9 g/dl (32-36); Mean Corpuscular Hemoglobin 30.1 pg (26-34); Mean Corpuscular Volume 91.4 fl (80-100); Monocytes Absolute Auto 0.9 K/mm3 (0.1-0.6); Monocytes Percent Auto 8.3 % (2.6-8.5); Neutrophils Absolute Auto 7.9 K/mm3 (1.3-6.7); Neutrophils Percent Auto 73.2 % (45.5-73.1); Platelet Count Result 375 k/mm3 (150-375); Red Blood Count 4.29 M/mm3 (4.6-6.20); White Blood Count 10.8 K/mm3 (4.5-10.0)
[2024-03-14 13:38] LABS: Anion Gap 13 mmol/L (4-12); Blood Urea Nitrogen 30 mg/dL (9-20); Calcium 9.2 mg/dL (8.4-10.2); Carbon Dioxide 23 mmol/L (22-30); Chloride 100 mmol/L (98-107); Estimated Glomerular Filt Rate 59; Glucose 123 mg/dL (65-110); Potassium 3.5 mmol/L (3.4-5.0); Sodium 136 mmol/L (137-145)
[2024-03-14 13:43] LABS: Partial Thromboplastin Time 27.7 Seconds (22.3-36.8)
== END 2024-03-14 12:17 | disposition home or self-care (01) ==
PROVIDERS: PCP Otolaryngology; Visit Provider Urology
DX: R94.31 Abnormal electrocardiogram [ECG] [EKG] (principal); C67.9 Malignant neoplasm of bladder, unspecified; I12.9 Hypertensive chronic kidney disease with stage 1 through stage 4 chronic kidney disease, or unspecified chronic kidney disease; N18.31 Chronic kidney disease, stage 3a; E78.5 Hyperlipidemia, unspecified
CPT/HCPCS: 36415; 80048; 85025; 85610; 85730; 87086; 87186; 93005

== ENCOUNTER 2024-03-26 00:15 | Day surgery (SDC) | payer MEDICARE, OTHER, SELFPAY ==
--- NOTE | 2024-03-12 12:45 | PC.NURSE ---
Report to the Outpatient Waiting Room, entrance under the green pavilion located off [facility], at time _11:15am on date _03/26/24 . Planned Procedure Time: __1:15pm .? Time changes happen often and if your time is changed the preop area will call you the afternoon before. - You and your visitor will be asked to self-screen and do not enter if you have any COVID symptoms. Please call surgeon if you need to reschedule. - A mask is optional within the hospital at this time. Patients may have clear liquids (water, carbonated beverages, clear teas, apple juice) until 3 hours prior to surgery with a maximum of 20 ounces. - No food from midnight until time of surgery and no smoking. This includes no chewing gum, candy or mints.(10:15am) Take only the following medications with a SIP of water on the morning of surgery: __None DO NOT STOP ANY OF YOUR OTHER PRESCRIPTION MEDICATIONS PRIOR TO SURGERY EXCEPT THE FOLLOWING Medications to discontinue per physician None Date to take last dose___None Please no make-up, nail chinese, hairspray, perfume, deodorant, or body powder the day of surgery.? No jewelry (including any body piercings) or valuables the day of surgery, leave them at home.? Please take a shower or bath the night before, or the morning of, surgery with an antibacterial soap.? Wear comfortable, loose fitting clothing.? Children are encouraged to wear pajamas. - Jewelry must be removed prior to entering the operating room.? Rings and piercings that are not removed may be cut off. - The hospital will not accept responsibility for valuables.? - Please leave all valuables, including medications, at home the day of surgery. If you are going home after surgery, a licensed line driver must drive you home.? - NO public transportation without another adult if you receive anesthesia. - We recommend that an adult stay with you for 24 hours following discharge. - We also recommend that you do not drive, make important decision, drink alcoholic beverages, or take any drugs that were not prescribed by your health care provider for at least 24 hours after your discharge time. Follow any additional instructions given to you from your surgeon. Telephone instructions given to __Patient and asked if any additional questions and then verbalized understanding. Patient advised to call surgeon office or pre surgery nurse liaison [phone] if any additional questions.
[2024-03-26] VITALS (11 sets, daily range): BP systolic 105–129; BP diastolic 48–68; PULSE 70–99; RESP 12–20; TEMP 36.1–36.8; O2SAT 96–99; BMI 27.8
--- NOTE | 2024-03-26 10:31 | PM.IMHP ---
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 He is on intermittent catheterizations. He also has a history of bladder carcinoma initially resected in August of 2021. Cystoscopy in the office recently and 11/14 was inconclusive. It was difficult to adequately visualize due to cloudiness of his urine. He is now here for cystoscopy with possible cysto bladder biopsy bladder tumor resection if needed Review of Systems Review of Systems: All systems reviewed & are unremarkable except as noted in HPI and below PMFSH Past Medical History Medical History Obesity Hyperlipidemia Hypertension Diabetes Surgical History Surgical History No pertinent past surgical history Social History Social History Smoking packs per day: 1 Smoking cigarettes per day: 20.0 Years smoked: 20 Smoking pack-years: 20.00 Smoking status: Former smoker Tobacco type: cigarettes Smoking end date: 09/10/82 Alcohol intake: never Substance use: never Do You Feel Safe in your Home?: Yes Lack of Transportation: No Lack of Food: Never True Current Housing: I Have Housing Concerned About Future Housing: No Difficulty Paying Gas/Electric Bills: No Difficulty Paying for Meds: No Currently Unemployed: No Education: High School Diploma/GED Difficulty w/ Childcare or Family Care: No Living arrangements: with family Additional living arrangements comments: Occupation/Education: retired Gender identity (if verbalized by the patient): Male Sexual Orientation (if Verbalized by the Patient): Straight or Heterosexual Spiritual care concerns: No Meds Home Medications and Allergies Home Medications ?Medication ?Instructions ?Recorded ?Confirmed ?Type atorvastatin 80 mg tablet (Lipitor) 80 mg PO HS 06/17/21 03/12/24 History hydrochlorothiazide 12.5 mg capsule 12.5 mg PO QAM 06/17/21 03/12/24 History metformin 1,000 mg tablet 1,000 mg PO BID 06/17/21 03/12/24 History pioglitazone 45 mg tablet (Actos) 45 mg PO QAM 06/17/21 03/12/24 History sitagliptin phosphate 100 mg 50 mg PO QPM 06/17/21 03/12/24 History tablet (Januvia) empagliflozin 25 mg tablet 25 mg PO DAILY #90 tabs 11/15/23 03/12/24 Rx (Jardiance) sodium bicarbonate 650 mg tablet 650 mg PO BID #180 tabs 11/28/23 03/12/24 Rx Allergies Allergy/AdvReac Type Severity Reaction Status Date / Time No Known Allergies Allergy Verified 03/12/24 12:26 Exam Const: General: cooperative and comfortable Resp: Effort & Inspection: normal respiratory effort Cardio: Rate: regular rate Rhythm: regular rhythm Assessment and Plan Assessment and plan (1) Bladder cancer: Code(s): C67.9 - Malignant neoplasm of bladder, unspecified Status: Acute Assessment and Plan: Proceed with cystoscopy, possible bladder biopsy/transurethral resection bladder tumor
--- NOTE | 2024-03-26 10:34 | WPDHPUPDATE1 ---
History and Physical Update Update Date/Time: 03/26/24 10:34 History and Physical has been reviewed, including an updated exam of the patient. There are NO changes in the patient's condition. Risks, benefits, and alternatives have been discussed and questions answered. Patient agrees to proceed with procedure.
[2024-03-26] MEDS: LACTATED RINGERS 1,000 ML 30 ML IV CONT (12:00)
[2024-03-26 12:08] LABS: Glucose Point of Care 111 mg/dl (65-105)
--- NOTE | 2024-03-26 12:40 | WPDANESEPPF ---
Anes - Initial Pre Proc Eval Procedure: Operation Date: 03/26/24 12:45 Proposed Procedures p Cystoscopy, - Juan Taylor MD s Possible Trans Urethral Resection Bladder Tumor - Juan Taylor MD Date/Time: 03/26/24 12:40 Surgeon: Juna Taylor MD Pre Op Diagnosis: bladder CA Patient Data Age: 78 Gender: M Height: 1.8 m Weight: 90.4 kg Last Vital Signs Temp 36.1 C L 03/26/24 12:16 Pulse 99 03/26/24 12:16 Resp 20 03/26/24 12:16 BP 124/62 03/26/24 12:16 Pulse Ox 97 03/26/24 12:16 O2 Del Method Room Air 03/26/24 12:16 Allergies Allergy/AdvReac Type Severity Reaction Status Date / Time No Known Allergies Allergy Verified 03/26/24 10:39 Home Medications ?Medication ?Instructions ?Recorded ?Confirmed ?Type atorvastatin 80 mg tablet (Lipitor) 80 mg PO HS 06/17/21 03/26/24 History hydrochlorothiazide 12.5 mg capsule 12.5 mg PO QAM 06/17/21 03/26/24 History metformin 1,000 mg tablet 1,000 mg PO BID 06/17/21 03/26/24 History pioglitazone 45 mg tablet (Actos) 45 mg PO QAM 06/17/21 03/26/24 History sitagliptin phosphate 100 mg 50 mg PO QPM 06/17/21 03/26/24 History tablet (Januvia) empagliflozin 25 mg tablet 25 mg PO DAILY #90 tabs 11/15/23 03/26/24 Rx (Jardiance) sodium bicarbonate 650 mg tablet 650 mg PO BID #180 tabs 11/28/23 03/26/24 Rx Laboratory Tests 03/26/24 12:02 POC Capillary Glucose 111 H mg/dl (65-105) Patient hx anesthesia problems: none Family hx anesthesia problems: none Results Review: All pre-operative results and documents have been reviewed as part of the pre-operative evaluation. [facility] Past Medical History Medical History Obesity Hyperlipidemia Hypertension Diabetes Surgical History Surgical History (Updated 03/26/24 @ 12:40 by Abraham Robin MD) Hx of cystoscopy Social History Social History Smoking packs per day: 1 Smoking cigarettes per day: 20.0 Years smoked: 20 Smoking pack-years: 20.00 Smoking status: Former smoker Tobacco type: cigarettes Smoking end date: 09/10/82 Alcohol intake: never Substance use: never Do You Feel Safe in your Home?: Yes Lack of Transportation: No Lack of Food: Never True Current Housing: I Have Housing Concerned About Future Housing: No Difficulty Paying Gas/Electric Bills: No Difficulty Paying for Meds: No Currently Unemployed: No Education: High School Diploma/GED Difficulty w/ Childcare or Family Care: No Living arrangements: with family Additional living arrangements comments: Occupation/Education: retired Gender identity (if verbalized by the patient): Male Sexual Orientation (if Verbalized by the Patient): Straight or Heterosexual Spiritual care concerns: No Anes - Eval Final PreProcedure Day of Procedure 03/26/24 12:40 Patient weight: overweight Heart: regular rate and rhythm Lungs: clear to auscultation Airway: Mallampati scale class II Neurological: alert and oriented Last oral intake: >/= 8 hours ASA classification: III Anesthetic plan: proceed Anesthesia type and monitoring: general LMA and standard monitoring Results Review: All pre-operative results and documents have been reviewed as part of the pre-operative evaluation. Informed Consent: The patient's anesthetic plan and its attendant risks and benefits were discussed with the patient/family/POA. Questions were solicited and answers provided to the satisfaction of the patient/family/POA.
[2024-03-26] MEDS: ceFAZolin 2 GM/D5W 50 ML 2 GM/50 ML BAG IVPB (12:52)
[2024-03-26] MEDS: LIDOCAINE 2% GEL UROJET 10 ML PKG MUCOUS MEM (13:10)
--- NOTE | 2024-03-26 13:25 | W.PM.PROC2 ---
Procedure Note - Detailed Date of Procedure 03/26/24 Pre-op Diagnosis bladder CA Post-op Diagnosis Same Procedure Performed Cystoscopy with bladder biopsy and fulguration Surgeon Juan Taylor MD Anesthesia General Description of Procedure Patient was taken to the operative suite correctly identified. Once anesthesia was obtained was placed in dorsal lithotomy position and prepped and draped usual sterile fashion. Twenty-two Vincentian scope was inserted bladder direct vision. There was no discrete papillary tumors noted. He has some mild erythema along the floor posterior wall. He has extremely large floppy bladder. Using a cold cup biopsy I biopsied these areas. Fulgurated the base. There was good hemostasis at termination of procedure. 2% viscous lidocaine was inserted urethra patient is taken recovery stable condition. He will call for results in 1 week. This completes dictation. Please send a copy of op note to my office Estimated Blood Loss 0 Drains No Pathology Yes Complications No immediate complications Condition Stable Disposition PACU
[2024-03-26 13:30] LABS: Glucose Point of Care 111 mg/dl (65-105)
--- OUTSIDE RECORDS SUMMARY | 2024-04-02 00:33 | XMS_ITS | Continuity of Care Document ---
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 It does not include entries that were removed or entered in error. Problem Status Onset Date Problem Type Date of Resolution Comments Source Seasonal allergy Active 01/30/20 24 Diagnosis [id number] Type 2 diabetes mellitus without complications Active 12/07/19 16 Condition DoD Chronic kidney disease stage 3 Active Condition Ambulator y Pharmacy Diabetes mellitus type 2 Active Condition Ambulatory Pharmacy Essential hypertension Active Condition Ambulatory Pharmacy Hyperlipidemia Active Condition Ambulat ory Pharmacy Seasonal allergic rhinitis Active Condition Ambulatory Pharmacy sciatica Active Condition DoD astigmatism regular Active Condition Do 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 Will need to recheck HgA1C DoD chalazion left eyelid Active Condition LLL-temporal DoD cataract senile nuclear Active Condition DoD visit for: administrative purpose Inactive Condition Rx called in for 30d, spoke to pt, will see him 29 July and readjust meds as needed. [facility] Preventive Medicine Established Patient Checkup Adult 40-64 Years Inactive Condition Will need c-scope and stress test when pt returns from vacation. 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 RTC in 3-6 mos for re-eval. If stable, ok to refill meds over phone DoD diabetes mellitus type 2 Active Condition Better controlled now though not at goal, will need re-eval in 3-6 mos after lifestyle modifications , will refill actos and give more needles. DoD Need For Vaccination Pneumococcal Inactive Condition DoD hyperlipidemia Active Condition Will increase zocor to 40 mg and will recheck ALT in 6 weeks. It is mildly elevated on recent bloodwork so will need to reassess [facility] visit for: issue repeat prescription Active Condition Refill a s requested [facility] Medications Combined list of outpatient medications from Department of Defense and Veterans Affairs facilities.Medications provided include 1) outpatient medications from the last 15 months, and 2) patient-reported medications. Medication Details Route Status Patient Instructions Prescription Expires Prescription Number Last Dispense Date Ordering Provider Order Date Order Qty Source All Day Allergy (Cetirizine ) 10 mg oral tablet 90 tab(s), 0 Refill(s ), 0 total refill(s ), Soft Stop Discont inued 05/08/2023 6[facility] amox[facility] -clav 500 mg-125 mg tablet 500 mg, Oral, every 12 hr, # 14 EA, 0 total refill(s ), Hard Stop Oral (given by mouth) Ordered 07/05/2024 14.0 Ambul at ory Pharmac y atorvastati n (U/D) 80 MG ORAL TAB Take with food/mil k.Take or use exactly as directed .Obtain advice for OTCs.Do not take if .Avoid grapefru it and grapefru it juice. Active 05/06/2024 [id number] 4 [address] [place] [address] ([facility]) atorvastati n (U/D) 80 MG ORAL TAB Take with food/mil k.Take or use exactly as directed .Obtain advice for OTCs.Do not take if .Avoid grapefru it and grapefru it juice. 05/04/2023 [id number] 3 2022 90 [facility] ([facility]) atorvastati n 80 mg oral tablet 1 tab(s), Oral, Daily, for choleste rol, # 90 tab(s), 2 total refill(s ), Hard Stop, Pharmacy : [facility] Oral (given by mouth) Complet ed 02/01/2024 90.0 6130[facility] atorvastati n 80 mg oral tablet 90 tab(s), 0 Refill(s ), 0 total refill(s ), Soft Stop Discont inued 05/08/2023 6130C-A f-C-375 Th [facility] [place] atorvastati n 80 mg oral tablet 1 tab(s), Oral, Daily, for choleste rol, # 90 tab(s), 3 total refill(s ), Maintena nce, Pharmacy : [facility] Oral (given by mouth) Ordered 90.0 6130C-A f-C-375 Th [facility] [place] atorvastati n 80 mg tablet See Instruct ions, # 90 EA, 2 total refill(s ), Acute Complet ed 05/04/2023 90.0 Ambulat ory Pharmac y CETIRIZINE (U/D) 10 MG ORAL TAB May cause drowsine ss.Obtai n advice for OTCs. Active 05/06/2024 [id number] 4 [address] [place] [address]) CETIRIZINE (U/D) 10 MG ORAL TAB May cause drowsine ss.Obtai n advice for OTCs. 05/04/2023 [id number] 3 [address] [place] [address]) cetirizine 10 mg tablet See Instruct ions, # 90 EA, 2 total refill(s ), Acute Complet ed 05/04/2023 90.0 Ambulat ory Pharmac y cetirizine 5 mg oral tablet 1 tab(s), Oral, Daily, PRN allergy symptoms , # 90 tab(s), 3 total refill(s ), [facility] Oral (given by mouth) Cancele d 02/02/2024 90.0 0055A[facility] [place] EMPAGLIFLOZ IN 10 MG ORAL TAB Check with your doctor before becoming . 02/02/2024 [id number] [address] [place] [address]) EMPAGLIFLOZ IN 10 MG ORAL TAB Check with your doctor before becoming . 05/04/2023 [id number] 3 [address] [place] [address]) ergocalcife rol 1.25 mg (50,000 units) capsule See Instruct ions, Oral, # 7 EA, 1 total refill(s ), Hard Stop Oral (given by mouth) Ordered 11/27/2024 7.0 Ambul at ory Pharmac y Flonase Allergy Relief 50 mcg/inh nasal spray 1 spray(s) , Nostril- Both, Daily, shake well before using, # 16 g, 2 total refill(s ), Hard Stop, Pharmacy : [facility] Nostri l-Both (into the nose) Complet ed 02/01/2024 16.0 6130C-A f-C-375 Th [facility] [place] Flonase Allergy Relief 50 mcg/inh nasal spray 1 spray(s) , Nostril- Both, Daily, shake well before using, # 16 g, 3 total refill(s ), Maintena nce, Pharmacy : [facility] Nostri l-Both (into the nose) Ordered 16.0 6130C-A f-C-375 Th [facility] [place] FLONASE-OTC (BRAND) 50 MCG LATHA SPSN [9.9] Take or use exactly as directed .For the nose. Active 05/06/2024 [id number] 4 [address] [place] [address] [place] ([facility]) FLONASE-OTC (BRAND) 50 MCG LATHA SPSN [9.9] Take or use exactly as directed .For the nose. 05/04/2023 [id number] 3 [address] [place] [address] [place] ([facility]) fluticasone 50 mcg/inh nasal spray 48 spray(s) , 0 Refill(s ), 0 total refill(s ), Soft Stop Discont inued 05/08/2023 6130C-A f-C-375 Th [facility] [place] fluticasone 50 mcg/inh nasal spray [16g] See dose instruct ions in comments , # 48 g, 2 total refill(s ), Acute Complet ed 05/04/2023 48.0 Ambulat ory Pharmac y Freestyle 28g lancets [100EA] See dose instruct ions in comments , # 100 EA, 5 total refill(s ), Acute Complet ed 05/04/2023 100.0 Ambulat ory Pharmac y freestyle lite (glucose) test strip [50EA] See dose instruct ions in comments , # 100 EA, 5 total refill(s ), Acute Complet ed 05/04/2023 100.0 Ambulat ory Pharmac y glucose test strip (freestyle lite) 1 EA, N/A, As Directed , # 100 EA, 3 total refill(s ), Maintena nce, Supply, Pharmacy : [facility] Not Applic able Ordered 100.0 6130C-A f-C-375 [facility] [place] glucose test strip (freestyle lite) 1 EA, N/A, As Directed , # 50 EA, 3 total refill(s ), Maintena nce, Supply, Route to [facility] Not Applic able Discont inued 05/08/2023 50.0 6130C-A f-C-375 Th [facility] [place] glucose test strip (freestyle lite) 1 EA, N/A, As Directed , # 100 EA, 3 total refill(s ), Hard Stop, Supply, Route to [facility] Not Applic able Complet ed 02/01/2024 100.0 6130C-A f-C-375 Th [facility] [place] hydroCHLORO thiazide (U/D) 12.5 MG PO CAP Take orange juice or banana.T destiny with food/mil k.Avoid exposure to sun.Take or use exactly as directed . Active 05/06/2024 [id number] 4 2023 90 [employer] [place] ([facility]) hydroCHLORO thiazide 12.5 mg oral capsule 1 cap(s), Oral, Daily, for blood pressure , # 90 cap(s), 2 total refill(s ), Hard Stop, Pharmacy : [facility] Oral (given by mouth) Complet ed 02/01/2024 90.0 6130C-A f-C-375 Th [facility] [place] hydroCHLORO thiazide 12.5 mg oral capsule 1 cap(s), Oral, Daily, for blood pressure , # 90 cap(s), 3 total refill(s ), Maintena nce, Pharmacy : [facility] Oral (given by mouth) Ordered 90.0 6130C-A f-C-375 Th [facility] [place] hydroCHLORO thiazide 12.5 mg oral tablet 90 tab(s), 0 Refill(s ), 0 total refill(s ), Soft Stop Discont inued 05/08/2023 6130C-A f-C-375 Th [facility] [place] hydroCHLORO thiazide 12.5 mg tablet See Instruct ions, # 90 EA, 2 total refill(s ), Acute Complet ed 05/04/2023 90.0 Ambulat ory Pharmac y Januvia 100 mg oral tablet 1 tab(s), Oral, Daily, # 90 tab(s), 2 total refill(s ), Maintena [facility], Pharmacy : [facility] Oral (given by mouth) Discont inued 02/01/2024 90.0 6130C-A f-C-375 Th [facility] [place] Januvia 100 mg tablet See dose instruct ions in comments , # 90 EA, 2 total refill(s ), Acute Complet ed 05/04/2023 90.0 Ambulat ory Pharmac y Januvia 50 mg oral tablet 1 tab(s), Oral, Daily, # 90 tab(s), 3 total refill(s ), Maintena [facility], Pharmacy : [facility] Oral (given by mouth) Ordered 01/26/2025 90.0 6130C -A f-C-375 Th [facility] [place] Jardiance 10 mg oral tablet 1 tab(s), Oral, every morning, # 90 tab(s), 2 total refill(s ), Maintena [facility], Pharmacy : [facility] Oral (given by mouth) Discont inued 11/15/2023 90.0 6130C-A f-C-375 Th [facility] [place] Jardiance 10 mg tablet See dose instruct ions in comments , # 90 EA, 2 total refill(s ), Acute Complet ed 05/04/2023 90.0 Ambulat ory Pharmac y Jardiance 25 mg tablet 25 mg, Oral, Daily, # 90 EA, 3 total refill(s ), Hard Stop Oral (given by mouth) Ordered 11/14/2024 90.0 Ambul at ory Pharmac y lisinopril (U/D) 20 MG ORAL TAB Be careful if taking OTCs.Harsha e or use exactly as directed .Do not take if . Active 05/06/2024 [id number] 4 [address] [place] [address] ([facility]) lisinopril (U/D) 20 MG ORAL TAB Be careful if taking OTCs.Harsha e or use exactly as directed .Do not take if . 05/04/2023 [id number] 3 [address] [place] [address] ([facility]) lisinopril 20 mg oral tablet 1 tab(s), Oral, Daily, for blood pressure , # 90 tab(s), 2 total refill(s ), Hard Stop, Pharmacy : [facility] Oral (given by mouth) Complet ed 02/01/2024 90.0 6130C-A f-C-375 Th [facility] [place] lisinopril 20 mg oral tablet 90 tab(s), 0 Refill(s ), 0 total refill(s ), Soft Stop Discont inued 05/08/2023 6130C-A -C-375 Th [facility] [place] lisinopril 20 mg oral tablet 1 tab(s), Oral, Daily, for blood pressure , # 90 tab(s), 3 total refill(s ), Maintena nce, Pharmacy : [facility] Oral (given by mouth) Ordered 90.0 6130C-A f-C-375 Th [facility] [place] lisinopril 20 mg tablet See Instruct ions, # 90 EA, 2 total refill(s ), Acute Complet ed 05/04/2023 90.0 Ambulat ory Pharmac y metFORMIN 1000 mg oral tablet 1 tab(s), Oral, BID, for diabetes , # 180 tab(s), 2 total refill(s ), Hard Stop, Pharmacy : [facility] Oral (given by mouth) Complet ed 02/01/2024 180.0 6130C-A f-C-375 [facility] [place] metFORMIN 1000 mg oral tablet Oral, BID, 180 tab(s), 0 Refill(s ), 0 total refill(s ), Soft Stop Oral (given by mouth) Discont inued 05/08/2023 6130C-A f-C-375 [facility] [place] metFORMIN 1000 mg oral tablet 1 tab(s), Oral, BID, for diabetes , # 180 tab(s), 3 total refill(s ), Maincheryl nce, Pharmacy : [facility] Oral (given by mouth) Ordered 180.0 6130C-A f[facility]C-375 [facility] metFORMIN 1000 mg tablet See Instruct ions, # 180 EA, 2 total refill(s ), Acute Complet ed 05/04/2023 180.0 Ambulat ory Pharmac y Metformin Hydrochlori de Tablet Extended Release 1,000 mg Oral Do not drink alcohol. Take with food/mil k.Take or use exactly as directed .Obtain advice for OTCs.Yamini ck with your doctor before becoming . Active 05/06/2024 [id number] 4 [address] [place] [address]) Metformin Hydrochlori de Tablet Extended Release 1,000 mg Oral Do not drink alcohol. Take with food/mil k.Take or use exactly as directed .Obtain advice for OTCs.Yamini ck with your doctor before becoming . 05/04/2023 [id number] 3 [address] [place] [address]) miscellaneo us medication 100 unknown unit, 0 Refill(s ), 0 total refill(s ), Soft Stop Discont inued 05/08/2023 6130C-A f-C-375 Th [facility] [place] PIOGLITAZON E 45 MG ORAL TAB Do not drink alcohol. Take or use exactly as directed . Active 05/06/2024 [id number] 4 [address] [place] [address]) PIOGLITAZON E 45 MG ORAL TAB Do not drink alcohol. Take or use exactly as directed . 05/04/2023 [id number] 3 [address] [place] [address]) pioglitazon e 45 mg oral tablet 1 tab(s), Oral, Daily, # 90 tab(s), 2 total refill(s ), Hard Stop, Pharmacy : [facility] Oral (given by mouth) Complet ed 02/01/2024 90.0 6130C-A f-C-375 [facility] [place] pioglitazon e 45 mg oral tablet 90 tab(s), 0 Refill(s ), 0 total refill(s ), Soft Stop Discont inued 05/08/2023 6130C-A f-C-375 [facility] [place] pioglitazon e 45 mg oral tablet 1 tab(s), Oral, Daily, # 90 tab(s), 3 total refill(s ), Maincheryl denise, Pharmacy : [facility] Oral (given by mouth) Ordered 90.0 6130C-A f-C-375 Th [facility] [place] pioglitazon e 45 mg tablet See Instruct ions, # 90 EA, 2 total refill(s ), Acute Complet ed 05/04/2023 90.0 Ambulat ory Pharmac y SITagliptin (U/D) 100 MG ORAL TAB Do not drink alcohol. Active 05/06/2024 [id number] [address] [place] [address] ([facility]) SITagliptin (U/D) 100 MG ORAL TAB Do not drink alcohol. 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 It does not include entries that were removed or entered in error. Substance Category Reaction Severity Reaction type Status Date Reported Comments Source No Known Allergies Drug allergy (disorder) active 8 [facility] NO KNOWN ALLERGIES Propensity to adverse reactions to drug Active Ambulatory Pharmacy Immunizations Combined list of available immunizations from the Department of Defense and Veterans Affairs facilities. Immunization Series Date Given Administered By Site Reaction Lot Number CVX Code Drug Educational Therapist Status Comments Source COVID Vaccine Moderna 2020 zzLef t Arm [id number] complet ed COVID Vaccine Moderna 01/27/21 Given Ambulat ory Pharmac y SARS-COV-2 (COVID-19) vaccine, mRNA, spike protein, LNP, preservative free, 100 mcg or 50 mcg dose 1 2020 Unknown, Provider [id number] 207 Moderna [employer] [email or web address]. (MOD) complet ed SARS-COV- 2 (COVID-19 ) vaccine, mRNA, spike protein, LNP, preservat sarahi free, 100 mcg or 50 mcg dose DoD influenza, high-dose seasonal, quad, pf 2020 zzLef t Arm [id number] 197 sanofi pasteur complet ed influenza , high-dose seasonal, quad, pf 01/02/21 Given Ambulat ory Pharmac y influenza, high-dose seasonal, quadrivalent, .7mL dose, preservative free 1 2020 Unknown, Provider unk 197 Sanofi Pasteur ([facility]) complet ed influenza , high-dose seasonal, quadrival ent, .7mL dose, preservat sarahi free DoD zoster vaccine, inactivated 2020 zzRig ht Arm [id number] GlaxoSmithKli ne complet ed zoster vaccine, inactivat ed 12/01/20 Given Ambulat ory Pharmac y zoster vaccine recombinant 1 2020 Unknown, Provider [id number] SmithKline (SKB) complet ed zoster vaccine recombina nt DoD zoster vaccine, inactivated 2020 zzRig ht Arm [id number] 187 GlaxoSmithKli ne complet ed zoster vaccine, inactivat ed 09/08/20 Given Ambulat ory Pharmac y zoster vaccine recombinant 1 2020 Unknown, Provider [id number] 187 SmithKline (SKB) complet ed zoster vaccine recombina nt DoD COVID Vaccine Moderna 2020 zzRig ht Arm [id number] complet ed COVID Vaccine Moderna 05/11/20 Given Ambulat ory Pharmac y SARS-COV-2 (COVID-19) vaccine, mRNA, spike protein, LNP, preservative free, 100 mcg or 50 mcg dose 1 2020 Unknown, Provider [id number] 207 [employer] Inc. (MOD) complet ed SARS-COV- 2 (COVID-19 ) vaccine, mRNA, spike protein, LNP, preservat sarahi free, 100 mcg or 50 mcg dose DoD COVID Vaccine Moderna 2020 [facility] Arm [id number] complet ed COVID Vaccine Moderna 04/13/20 Given Ambulat ory Pharmac y SARS-COV-2 (COVID-19) vaccine, mRNA, spike protein, LNP, preservative free, 100 mcg or 50 mcg dose 1 2020 Unknown, Provider [id number] Moderna [employer] Inc. (MOD) complet ed SARS-COV- 2 (COVID-19 ) vaccine, mRNA, spike protein, LNP, preservat sarahi free, 100 mcg or 50 mcg dose DoD influenza, injectable, quadrivalent- pf 2017 [facility] Arm [id number] Seqirus complet ed influenza , injectabl e, quadrival ent-pf 01/02/18 Given Ambulat ory Pharmac y Influenza, injectable, quadrivalent, preservative free 1 2017 Unknown, Provider [id number] Seqirus (SEQ) complet ed Influenza , injectabl e, quadrival ent, preservat sarahi free DoD Influenza, inj, MDCK, quadrivalent- pf 2016 [facility] Arm [id number] Se[employer] complet ed Influenza , inj, MDCK, quadrival ent-pf 12/07/16 Given Ambulat ory Pharmac y Influenza, injectable, Madin [place] Canine Kidney, preservative free, quadrivalent 1 2016 Unknown, Provider [id number] 171 Seqirus (SEQ) complet ed Influenza , injectabl e, Madin Sylvia Canine Kidney, preservat sarahi free, quadrival ent DoD influenza, seasonal, injectable 2015 [facility] Arm [id number] 141 CSL Behring complet ed influenza , seasonal, injectabl e 11/26/15 Given Ambulat ory Pharmac y Influenza, seasonal, injectable 1 2015 Unknown, Provider [id number] 141 [employer]. (CSL) complet ed Influenza , seasonal, injectabl e DoD influenza, seasonal, injectable-pf 2014 zzLef t Arm [id number] 140 CSL Behring complet ed influenza , seasonal, injectabl e-pf 12/17/14 Given Ambulat ory Pharmac y Influenza, seasonal, injectable, preservative free 1 2014 Unknown, Provider [id number] 140 [facility] [employer]Crowd[employer] Inc.apEyeGate Pharmaceuticals, Inc. (CSL) complet ed Influenza , seasonal, injectabl e, preservat sarahi free DoD pneumococcal 13-valent conjugate (PCV13) 2013 zzRig ht Arm [id number] [employer]ix complet ed pneumococ stephanie 13-valent conjugate (PCV13) 12/13/13 Given Ambulat ory Pharmac y influenza, seasonal, injectable-pf 2013 zzLef t Arm [id number] 140 [employer] complet ed influenza , seasonal, injectabl e-pf 12/13/13 Given Ambulat ory Pharmac y pneumococcal conjugate vaccine, 13 valent 1 2013 Unknown, Provider [id number] [facility] ([facility]) complet ed pneumococ stephanie conjugate vaccine, 13 valent DoD Influenza, seasonal, injectable, preservative free 1 2013 Unknown, Provider [id number] 140 Novartis [employer] Fly. (NOV) complet ed Influenza , seasonal, injectabl e, preservat sarahi free DoD influenza, seasonal, injectable-pf 2012 zzRig ht Arm [id number] 140 sanofi pasteur complet ed influenza , seasonal, injectabl e-pf 12/25/12 Given Ambulat ory Pharmac y Influenza, seasonal, injectable, preservative free 1 2012 Unknown, Provider [id number] 140 Sanofi Pasteur ([facility]) complet ed Influenza , seasonal, injectabl e, preservat sarahi free DoD pneumococcal polysaccharid e, 23 valent 2012 zzRig ht Arm [id number] Merck & Company Inc complet ed pneumococ stephanie polysacch aride, 23 valent 10/03/12 Given Ambulat ory Pharmac y pneumococcal polysaccharid e vaccine, 23 valent 1 2012 Unknown, Provider [id number] Merck (MSD) complet ed pneumococ stephanie polysacch aride vaccine, 23 valent DoD zoster vaccine live 2012 zzLef t Arm [id number] Merck & Company Inc complet ed zoster vaccine live 08/30/12 Given Ambulat ory Pharmac y zoster vaccine, live 1 2012 Unknown, Provider [id number] Merck (MSD) complet ed zoster vaccine, live DoD influenza, seasonal, injectable-pf [facility] [id number] 140 sanofi pasteur complet ed influenza , seasonal, injectabl e-pf 12/16/11 Given Ambulat ory Pharmac y tetanus, diphtheria, acellular pertu is 2011 zzLef t Arm [id number] 115 [employer] complet ed tetanus, diphtheri a, acellular pertussis 12/16/11 Given Ambulat ory Pharmac y tetanus toxoid, reduced diphtheria toxoid, and acellular pertu is vaccine, adsorbed 1 2011 Unknown, Provider [id number] 115 [facility] complet ed tetanus toxoid, reduced diphtheri a toxoid, and acellular pertussis vaccine, adsorbed DoD Influenza, seasonal, injectable, preservative free 6 2011 Unknown, Provider [id number] 140 Sanofi Pasteur ([facility]) complet ed Influenza , seasonal, injectabl e, preservat sarahi free DoD influenza, seasonal, injectable 2010 zzLef t Arm [id number] 141 sanofi pasteur complet ed influenza , seasonal, injectabl e 01/10/11 Given Ambulat ory Pharmac y Influenza, seasonal, injectable 5 2010 Unknown, Provider [id number] 141 Sanofi Pasteur ([facility]) complet ed Influenza , seasonal, injectabl e DoD influenza virus vaccine,split 2009 zzLef t Arm [id number] CSL Behring complet ed influenza virus vaccine,s plit 01/18/10 Given Ambulat ory Pharmac y influenza virus vaccine, split virus (incl. purified surface antigen)-reti red CODE 1 2009 Unknown, Provider [id number] [employer]. (CSL) complet ed influenza virus vaccine, split virus (incl. purified surface antigen)- retired CODE DoD influenza virus vaccine,split 2008 zzLef t Arm [id number] 15 sanofi pasteur complet ed influenza virus vaccine,s plit 12/16/08 Given Ambulat ory Pharmac y influenza virus vaccine, split virus (incl. purified surface antigen)-reti red CODE 1 2008 Unknown, Provider [id number] 15 Sanofi Pasteur ([facility]) complet ed influenza virus vaccine, split virus (incl. purified surface antigen)- retired CODE DoD influenza virus vaccine,split 2007 zzLef t Arm [id number] 15 GlaxoSmithKli ne complet ed influenza virus vaccine,s plit 01/21/08 Given Ambulat ory Pharmac y influenza virus vaccine, split virus (incl. purified surface antigen)-reti red CODE 1 2007 Unknown, Provider [id number] 15 Sk[employer] (SKB) complet ed influenza virus vaccine, split virus (incl. purified surface antigen)- retired CODE [facility]D influenza virus vaccine,split 2006 zzLef t Arm [id number] 3AA 15 GlaxoSmithKli ne complet ed influenza virus vaccine,s plit 01/11/07 Given Ambul[facility] Pharmac y influenza virus vaccine, split virus (incl. purified surface antigen)-reti red CODE 1 2006 Unknown, Provider [id number] 3AA 15 Skinny Momine (SKB) complet ed influenza virus vaccine, split virus (incl. purified surface antigen)- retired CODE [facility] Results Combined list of recent chemistry, hematology and other laboratory results from [facility] [employer] and [facility], ranging from 15 months to all on record, depending upon the facility. Order Name Results Value Reference Range Date Interpretation Specimen Comments Source Hematolo gy Neutrophil % Auto 65.6 % 46.0 - 77.0 02/14 N [facility] Hemat[facility] Neutro Absolute 4.9 x10^3/mc L 2.0 - 7.0103 02/14 [facility] Hematolo gy Monocyte % Auto 9 % 1 - 12 02/14 N [facility] Hematolo gy [place] Absolute 0.7 x10^3/mc L 0.2 - 0.8103 02/14 N [facility] Hematolo gy Lymph Absolute 1.7 x10^3/mc L 1.2 - 4.0103 02/14 [facility] Hematolo gy Lymphocyte % Auto 22.2 % 20.0 - 40.0 02/14 N [facility] Hematolo gy Eosinophil % Auto 2 % 0 - 5 02/14 [facility] Hemat[facility] Eos Absolute 0.2 x10^3/mc L 0.0 - 0.7103 02/14 N [facility] Hematolo gy Basophil % Auto 0.4 % 0.0 - 2.5 02/14 [facility] Hematolo gy Baso Absolute 0.0 x10^3/mc L 0.0 - 0.1103 02/14 N [facility] Chemistr y eGFR CKD EPI 77 mL/min/1 .73_m2 02/14 Interpretiv e Data: Estimated Glomerular Filtration Rate (eGFR) calculated using the 2020 Chronic Kidney Disease-Epi demiology (CKD-EPI) Collaborati on creatinine equation; units of measure are mL/min/1.73 m2. Results are only valid for adults (>=18 years) whose serum creatinine is in steady state. eGFR calculation s are not valid for patients with acute kidney injury and for patients on dialysis. Creatinine- based estimates of kidney function may also be inaccurate in patients with reduced creatinine generation due to decreased muscle mass (e.g., malnutritio n, severe hypoalbumin emia, sarcopenia, chronic neuromuscul ar disease, amputations , severe heart failure or liver disease) and in patients with increased creatinine generation due to increased muscle mass (e.g., muscle builders, anabolic steroids) or increased dietary intake. CKD is diagnosed based on abnormaliti es of kidney structure or function, present for >3 months, with implication s for health and disease. CKD is classified and staged based on cause, eGFR and albuminuria (quantified as urine albumin to creatinine ratio). An eGFR >60 mL/min/1.73 m2 in the absence of increased urine albumin excretion or structural abnormaliti es does not CKD. eGFR provides only an estimate of measured GFR within +/- 30% for most patients. As mentioned, nutritional status and muscle mass, among many factors, may lead to inaccuracy in the estimate. Consider ordering the creatinine- cystatin C panel if better accuracy is needed for clinical decision-willem fuller. eGFR (mL/min/1.7 3 m2) CKD stage Interpretat ion Normal 60-89 Mild decrease 45-59 Mild to moderate decrease 30-44 Moderate to severe decrease 15-29 Severe decrease <15 Kidney failure [facility] Miscella neous Sendouts PTH Intact.LC 108 pg/mL 15 - 65 02/14 H Result Comment: Performed At: [address] [id number] Bebo Martinez PhD Ph:[phone] [facility] Hematolo gy WBC 7.5 x10^3/mc L 4.0 - 11.0103 02/14 N [facility] Hematolo gy RDW 14.2 % 11.0 - 14.9 02/14 N [facility] Hematolo gy RBC 4.4 x10^6/mc L 4.0 - 5.6106 02/14 N [facility] Hematolo gy Platelets 288.0 x10^3/mc L 150.0 - 450.0103 02/14 N [facility] Hematolo gy MPV 9.0 fL 7.4 - 10.4 02/14 [facility] Hematolo gy MCV 92 fL 80 - 97 02/14 N [facility] Hematolo gy MCHC 32.7 g/dL 33.0 - 36.5 02/14 L [facility] Hematolo gy MCH 30 pg 28 - 33 02/14 N [facility] Hematolo gy Hemoglobin 13.2 g/dL 13.0 - 16.3 02/14 N [facility] Hematolo gy Hematocrit 40 % 40 - 49 02/14 N [facility] Chemist[facility] Phosphorus 3.8 mg/dL 2.3 - 4.7 02/14 N [facility] Sodium 138 mmol/L 136 - 145 02/14 N [facility] Potassium Lvl 3.1 mmol/L 3.5 - 5.1 02/14 L [facility] Glucose Lvl 113 mg/dL 74 - 99 02/14 H [facility] Creatinine Level 1.00 mg/dL 0.72 - 1.25 02/14 N [facility] CO2 23 mmol/L 22 - 29 02/14 N [facility] Chloride 100 mmol/L 98 - 107 02/14 N [facility] Calcium 8.8 mg/dL 8.4 - 10.2 02/14 N [facility] BUN/Creat Ratio 21 mg/dL 12 - 20 02/14 H [facility] BUN 21 mg/dL 8 - 26 02/14 N [facility] Albumin 3.50 g/dL 3.50 - 5.20 02/14 N [facility] Chemist[facility] y AGAP 15.00 0.00 - 15.00 02/14 N [facility] Creatinine Ur LC 33.6 mg/dL Not Estab. 02/14 [facility] Ur Protein Total.LC 81.9 mg/dL Not Estab. 02/14 [facility] Chem[facility] Protein/Cr eat Ratio LC 2438 mg/gCr 0 - 200 02/14 H Result Comment: Performed At: [address] [id number] Bebo Martinez PhD Ph:[phone] [facility] Hematolo gy WBC 8.2 x10^3/mc L 4.0 - 11.0103 01/22 N [facility] Hematolo gy RDW 14.0 % 11.0 - 14.9 01/22 N [facility] Hematolo gy RBC 4.3 x10^6/mc L 4.0 - 5.6106 01/22 N [facility] Hematolo gy Platelets 300.0 x10^3/mc L 150.0 - 450.0103 01/22 N [facility] Hematolo gy MPV 9.2 fL 7.4 - 10.4 01/22 N [facility] Hematolo gy MCV 93 fL 80 - 97 01/22 N [facility] Hematolo gy MCHC 32.8 g/dL 33.0 - 36.5 01/22 L [facility] Hematolo gy MCH 31 pg 28 - 33 01/22 N [facility] Hemat[facility] Hemoglobin 13.3 g/dL 13.0 - 16.3 01/22 N [facility] Hematolo gy Hematocrit 40 % 40 - 49 01/22 N [facility] Hematolo gy Differenti al? Auto ( 4 2:22 PM) 01/22 N [facility] Protein Total 7.4 g/dL 6.4 - 8.3 01/22 N [facility] Sodium 139 mmol/L 136 - 145 01/22 N [facility] Potassium Lvl 3.3 mmol/L 3.5 - 5.1 01/22 L [facility] Glucose Lvl 101 mg/dL 74 - 99 01/22 H [facility] Creatinine Level 1.40 mg/dL 0.72 - 1.25 01/22 H [facility] CO2 21 mmol/L 22 - 29 01/22 L [facility] Chloride 99 mmol/L 98 - 107 01/22 N [facility] Calcium 8.9 mg/dL 8.4 - 10.2 01/22 N [facility] BUN/Creat Ratio 24 mg/dL 12 - 20 01/22 H [facility] BUN 33 mg/dL 8 - 26 01/22 H [facility] Bilirubin Total 0.8 mg/dL 0.2 - 1.2 01/22 N [facility] AST 21 U/L 5 - 34 01/22 N [facility] ALT 18 U/L 5 - 55 01/22 N [facility] Alk Phos 78 U/L 40 - 150 01/22 N [facility] Albumin 3.70 g/dL 3.50 - 5.20 01/22 N [facility] Chem[facility] y AGAP 19.00 0.00 - 15.00 01/22 H [facility] Triglyceri adriana 137 mg/dL 7 - 149 01/22 N Interpretiv e Data: AGES 0-9: Desirable: < 75 mg/dL Borderline High: 75-99 mg/dL High: >/= 100 mg/dL AGES 10-19: Desirable: < 90 mg/dL Borderline High: 90-129 mg/dL High: >/= 130 mg/dL ADULTS: Desirable: < 150 mg/dL Borderline High: 150-199 mg/dL High: >/= 240 mg/dL Very High: >/= 500 mg/dL [facility] LDL/HDL 1 01/22 [facility] LDL 67 mg/dL 100 - 130 01/22 L Interpretiv e Data: AGES 0-19: Desirable: < 110 mg/dL Borderline High: 110-129 mg/dL High: >/= 130 mg/dL ADULTS: Desirable: <100 mg/dL Near/above optimal: 100-130 mg/dL Borderline High: 131-159 mg/dL High: 160-189 mg/dL Very High: e190 mg/dL [facility] HDL Cholestero l 55 mg/dL 40 - 59 01/22 N Interpretiv e Data: HDL (HIGH DENSITY LIPOPROTEIN ): ADULTS: Low: < 40 mg/dL High: >/= 60 mg/dL AGES 0 -19: Low: < 40 mg/dL Borderline Low: 40 - 45 mg/dL Acceptable: > 45 mg/dL [facility] Cholestero l Total 148 mg/dL 01/22 N Interpretiv e Data: According to the [place] : AGES 0-19: Desirable: < 170 mg/dL Borderline High: 170-199 mg/dL High Blood Cholesterol : >/= 200 mg/dL ADULTS: Desirable < 200 mg/dL Borderline High: 200-239 mg/dL High Blood Cholesterol : >/= 240 mg/dL [facility] Chol/HDL 3 mg/dL 01/22 [facility] Hemoglobin A1c 5.9 % 4.0 - 5.6 01/22 H Interpretiv e Data: Normal: 4.0 - 5.6% Increased Risk: 5.7 - 6.4% Diabetic Range: e 6.5% For patients without diabetes, the normal range for the hemoglobin A1c test is between 4% and 5.6%. Hemoglobin A1c levels between 5.7% and 6.4% indicate increased risk of diabetes, and levels of 6.5% or higher indicate diabetes. Because studies have repeatedly shown that out-of-cont rol diabetes results in complicatio ns from the disease, the goal for people with diabetes is a hemoglobin A1c less than 7%. The higher the hemoglobin A1c, the higher the risks of developing complicatio ns related to diabetes. If confirmatio n is needed, consider recalling the patient and ordering Hemoglobin Electrophor esis. [facility] eAvg Glucose 123 mg/dL 01/22 [facility] TSH 1.900 mIU/L 0.270 - 4.200 01/22 N Interpretiv e Data: Recommend: TPO/Thyrope roxidase Antibody when TSH result is > 4.2 uIU/mL [facility] Hematolo gy Neutrophil % Auto 70.1 % 46.0 - 77.0 01/22 N [facility] Hematolo gy Neutro Absolute 5.8 x10^3/mc L 2.0 - 7.0103 01/22 N [facility] Hematolo gy Monocyte % Auto 7 % 1 - 12 01/22 N [facility] Hematolo gy [place] Absolute 0.6 x10^3/mc L 0.2 - 0.8103 01/22 N [facility] Hematolo gy Lymph Absolute 1.6 x10^3/mc L 1.2 - 4.0103 01/22 N [facility] Hematolo gy Lymphocyte % Auto 19.7 % 20.0 - 40.0 01/22 L [facility] Hematolo gy Eosinophil % Auto 2 % 0 - 5 01/22 N [facility] Hematolo gy Eos Absolute 0.1 x10^3/mc L 0.0 - 0.7103 01/22 N [facility] Hematolo gy Basophil % Auto 0.6 % 0.0 - 2.5 01/22 N [facility] Hematolo gy Baso Absolute 0.0 x10^3/mc L 0.0 - 0.1103 01/22 N [facility] Chem[facility] eGFR CKD EPI 51 mL/min/1 .73_m2 01/22 Interpretiv e Data: Estimated Glomerular Filtration Rate (eGFR) calculated using the 2020 Chronic Kidney Disease-Epi demiology (CKD-EPI) Collaborati on creatinine equation; units of measure are mL/min/1.73 m2. Results are only valid for adults (>=18 years) whose serum creatinine is in steady state. eGFR calculation s are not valid for patients with acute kidney injury and for patients on dialysis. Creatinine- based estimates of kidney function may also be inaccurate in patients with reduced creatinine generation due to decreased muscle mass (e.g., malnutritio n, severe hypoalbumin emia, sarcopenia, chronic neuromuscul ar disease, amputations , severe heart failure or liver disease) and in patients with increased creatinine generation due to increased muscle mass (e.g., muscle builders, anabolic steroids) or increased dietary intake. CKD is diagnosed based on abnormaliti es of kidney structure or function, present for >3 months, with implication s for health and disease. CKD is classified and staged based on cause, eGFR and albuminuria (quantified as urine albumin to creatinine ratio). An eGFR >60 mL/min/1.73 m2 in the absence of increased urine albumin excretion or structural abnormaliti es does not CKD. eGFR provides only an estimate of measured GFR within +/- 30% for most patients. As mentioned, nutritional status and muscle mass, among many factors, may lead to inaccuracy in the estimate. Consider ordering the creatinine- cystatin C panel if better accuracy is needed for clinical decision-ma alina. eGFR (mL/min/1.7 3 m2) CKD stage Interpretat ion Normal 60-89 Mild decrease 45-59 Mild to moderate decrease 30-44 Moderate to severe decrease 15-29 Severe decrease <15 Kidney failure [facility] eGFR CKD EPI 44 mL/min/1 .73_m2 11/23 Interpretiv e Data: Estimated Glomerular Filtration Rate (eGFR) calculated using the 2020 Chronic Kidney Disease-Epi demiology (CKD-EPI) Collaborati on creatinine equation; units of measure are mL/min/1.73 m2. Results are only valid for adults (>=18 years) whose serum creatinine is in steady state. eGFR calculation s are not valid for patients with acute kidney injury and for patients on dialysis. Creatinine- based estimates of kidney function may also be inaccurate in patients with reduced creatinine generation due to decreased muscle mass (e.g., malnutritio n, severe hypoalbumin emia, sarcopenia, chronic neuromuscul ar disease, amputations , severe heart failure or liver disease) and in patients with increased creatinine generation due to increased muscle mass (e.g., muscle builders, anabolic steroids) or increased dietary intake. CKD is diagnosed based on abnormaliti es of kidney structure or function, present for >3 months, with implication s for health and disease. CKD is classified and staged based on cause, eGFR and albuminuria (quantified as urine albumin to creatinine ratio). An eGFR >60 mL/min/1.73 m2 in the absence of increased urine albumin excretion or structural abnormaliti es does not CKD. eGFR provides only an estimate of measured GFR within +/- 30% for most patients. As mentioned, nutritional status and muscle mass, among many factors, may lead to inaccuracy in the estimate. Consider ordering the creatinine- cystatin C panel if better accuracy is needed for clinical decision-willem fuller. eGFR (mL/min/1.7 3 m2) CKD stage Interpretat ion Normal 60-89 Mild decrease 45-59 Mild to moderate decrease 30-44 Moderate to severe decrease 15-29 Severe decrease <15 Kidney failure [facility] Cortisol Lvl 7.67 ug/dL 11/23 Interpretiv e Data: Reference Interval: Adults: AM: 6.02 - 18.4 ug/dL PM: 2.68 - 10.5 ug/dL METHODOLOGY : Testing performed by electrochem iluminescen ce immunoassay (ECLIA). [facility] Phosphorus 3.3 mg/dL 2.3 - 4.7 11/23 N [facility] Sodium 138 mmol/L 136 - 145 11/23 N [facility] Potassium Lvl 3.7 mmol/L 3.5 - 5.1 11/23 N [facility] Glucose Lvl 133 mg/dL 74 - 99 11/23 H [facility] Creatinine Level 1.60 mg/dL 0.72 - 1.25 11/23 H [facility] CO2 17 mmol/L 22 - 29 11/23 L [facility] Chloride 107 mmol/L 98 - 107 11/23 N [facility] Calcium 9.0 mg/dL 8.4 - 10.2 11/23 N [facility] BUN/Creat Ratio 26 mg/dL 12 - 20 11/23 H [facility] BUN 41 mg/dL 8 - 11/23 H [facility] Albumin 3.60 g/dL 3.50 - 5.20 11/23 N [facility] AGAP 14.00 0.00 - 15.00 11/23 N [facility] Vitamin D 25 OH <6.0 ng/mL 30.0 - 100.0 11/23 L Interpretiv e Data: Classificat ion of Vitamin D Status: Deficient: <20 ng/mL Insufficien t: 20-29 ng/mL Sufficient: 30-100 ng/mL Possible Toxicity: >100 ng/mL This assay is for the quantitativ e determinati on of total 25 (OH) vitamin D. It is intended as an aid in the determinati on of vitamin D sufficiency . Results should always be interpreted in conjunction with the patient's medical history, clinical presentatio n, and other findings. Testing performed by Riddhi pinedo. [facility] H[facility] Neutrophil % Auto 75.2 % 46.0 - 77.0 11/05 N [facility] Hemat[facility] Neutro Absolute 8.0 x10^3/mc L 2.0 - 7.0103 11/05 H [facility] Hematolo [facility] Monocyte % Auto 7 % 1 - 12 11/05 N [facility] Hematolo gy [place] Absolute 0.8 x10^3/mc L 0.2 - 0.8103 11/05 N [facility] Hemat[facility] Lymph Absolute 1.6 x10^3/mc L 1.2 - 4.0103 11/05 N [facility] Hemat[facility] Lymphocyte % Auto 15.5 % 20.0 - 40.0 11/05 L [facility] H[facility] Eosinophil % Auto 1 % 0 - 5 11/05 N [facility] Hemat[facility] Eos Absolute 0.1 x10^3/mc L 0.0 - 0.7103 11/05 N [facility] Hemat[facility] Basophil % Auto 0.2 % 0.0 - 2.5 11/05 N [facility] Hemat[facility] gy Baso Absolute 0.0 x10^3/mc L 0.0 - 0.1103 11/05 N [facility] eGFR CKD EPI 34 mL/min/1 .73_m2 11/05 Interpretiv e Data: Estimated Glomerular Filtration Rate (eGFR) calculated using the 2020 Chronic Kidney Disease-Epi demiology (CKD-EPI) Collaborati on creatinine equation; units of measure are mL/min/1.73 m2. Results are only valid for adults (>=18 years) whose serum creatinine is in steady state. eGFR calculation s are not valid for patients with acute kidney injury and for patients on dialysis. Creatinine- based estimates of kidney function may also be inaccurate in patients with reduced creatinine generation due to decreased muscle mass (e.g., malnutritio n, severe hypoalbumin emia, sarcopenia, chronic neuromuscul ar disease, amputations , severe heart failure or liver disease) and in patients with increased creatinine generation due to increased muscle mass (e.g., muscle builders, anabolic steroids) or increased dietary intake. CKD is diagnosed based on abnormaliti es of kidney structure or function, present for >3 months, with implication s for health and disease. CKD is classified and staged based on cause, eGFR and albuminuria (quantified as urine albumin to creatinine ratio). An eGFR >60 mL/min/1.73 m2 in the absence of increased urine albumin excretion or structural abnormaliti es does not CKD. eGFR provides only an estimate of measured GFR within +/- 30% for most patients. As mentioned, nutritional status and muscle mass, among many factors, may lead to inaccuracy in the estimate. Consider ordering the creatinine- cystatin C panel if better accuracy is needed for clinical decision-willem fuller. eGFR (mL/min/1.7 3 m2) CKD stage Interpretat ion Normal 60-89 Mild decrease 45-59 Mild to moderate decrease 30-44 Moderate to severe decrease 15-29 Severe decrease <15 Kidney failure [facility] Hemat[facility] WBC 10.6 x10^3/mc L 4.0 - 11.0103 11/05 N [facility] Hemat[facility] RDW 14.2 % 11.0 - 14.9 11/05 N [facility] Hemat[facility] RBC 3.8 x10^6/mc L 4.0 - 5.6106 11/05 L [facility] Hemat[facility] Platelets 326.0 x10^3/mc L 150.0 - 450.0103 11/05 N [facility] Hemat[facility] MPV 8.8 fL 7.4 - 10.4 11/05 N [facility] Hemat[facility] MCV 93 fL 80 - 97 11/05 N [facility] Hemat[facility] MCHC 33.0 g/dL 33.0 - 36.5 11/05 N [facility] Hematolo [facility] MCH 31 pg 28 - 33 11/05 N [facility] Hemoglobin 11.6 g/dL 13.0 - 16.3 11/05 L [facility] Hematocrit 35 % 40 - 49 11/05 L [facility] H[facility] Differenti al? Auto (11/06/23 2:32 PM) 11/05 N [facility] Miscella neous Sendouts PTH Intact.LC 121 pg/mL 11/05 H Result Comment: Performed At: [address] [id number] Bebo Martinez PhD Ph:[phone] [facility] Phosphorus 3.8 mg/dL 2.3 - 4.7 11/05 N [facility] Sodium 129 mmol/L 136 - 145 11/05 Result Comment: Critical result called to and read back by Deirdre Lemus at nephrology [facility] at 1616 11/06/23. //DFC. [facility] Potassium Lvl 5.5 mmol/L 3.5 - 5.1 11/05 H [facility] Glucose Lvl 133 mg/dL 74 - 99 11/05 H [facility] Creatinine Level 2.00 mg/dL 0.72 - 1.25 11/05 H [facility] CO2 12 mmol/L 22 - 11/05 Result Comment: Critical result called to and read back by Deirdre Lemus at [facility] at 1616 11/06/23. //DFC. [facility] Chloride 105 mmol/L 98 - 107 11/05 N [facility] Calcium 9.0 mg/dL 8.4 - 10.2 11/05 N [facility] BUN/Creat Ratio 34 mg/dL 12 - 11/05 H [facility] BUN 69 mg/dL 8 - 11/05 H [facility] Albumin 3.40 g/dL 3.50 - 5.20 11/05 L [facility] AGAP 12.00 0.00 - 15.00 11/05 N [facility] Creatinine Ur LC 45.8 mg/dL 11/05 [facility] Ur Protein Total.LC 48.0 mg/dL 11/05 [facility] Protein/Cr eat Ratio LC 1048 mg/gCr 11/05 H Result Comment: Performed At: [address] [id number] Bebo Martinez PhD Ph:[phone] [facility] Hemat[facility] Neutrophil % Auto 71.8 % 46.0 - 77.0 10/01 N [facility] Hemat[facility] Neutro Absolute 7.4 x10^3/mc L 2.0 - 7.0103 10/01 H [facility] Hemat[facility] Monocyte % Auto 9 % 1 - 12 10/01 N [facility] Hematolo [facility] [place] Absolute 0.9 x10^3/mc L 0.2 - 0.8103 10/01 H [facility] H[facility] Lymph Absolute 1.8 x10^3/mc L 1.2 - 4.0103 10/01 N [facility] Lymphocyte % Auto 17.0 % 20.0 - 40.0 10/01 L [facility] Eosinophil % Auto 2 % 0 - 5 10/01 N [facility] Eos Absolute 0.2 x10^3/mc L 0.0 - 0.7103 10/01 N [facility] Basophil % Auto 0.4 % 0.0 - 2.5 10/01 N [facility] H[facility] Baso Absolute 0.0 x10^3/mc L 0.0 - 0.1103 10/01 N [facility] Creatinine Ur LC 59.4 mg/dL 10/01 [facility] Ur Protein Total.LC 372.4 mg/dL 10/01 Result Comment: Results confirmed on dilution. [facility] Protein/Cr eat Ratio LC 6269 mg/gCr 10/01 H Result Comment: Performed At: [address] [id number] Bebo Martinez PhD Ph:[phone] [facility] Phosphorus 3.5 mg/dL 2.3 - 4.7 10/01 N [facility] Sodium 134 mmol/L 136 - 145 10/01 L [facility] Potassium Lvl 4.9 mmol/L 3.5 - 5.1 10/01 N [facility] Glucose Lvl 133 mg/dL 74 - 99 10/01 H [facility] Creatinine Level 1.70 mg/dL 0.72 - 1.25 10/01 H [facility] CO2 16 mmol/L 22 - 29 10/01 L [facility] Chloride 106 mmol/L 98 - 107 10/01 N [facility] Calcium 9.1 mg/dL 8.4 - 10.2 10/01 N [facility] BUN/Creat Ratio 25 mg/dL 12 - 20 10/01 H [facility] BUN 42 mg/dL 8 - 26 07/22 /2024 H [facility] Albumin 3.50 g/dL 3.50 - 5.20 10/01 N [facility] AGAP 12.00 0.00 - 15.00 10/01 N [facility] Hematolo [facility] WBC 10.3 x10^3/mc L 4.0 - 11.0103 10/01 N [facility] H[facility] RDW 14.6 % 11.0 - 14.9 10/01 N [facility] H[facility] RBC 4.0 x10^6/mc L 4.0 - 5.6106 10/01 N [facility] Platelets 319.0 x10^3/mc L 150.0 - 450.0103 10/01 N [facility] H[facility] MPV 9.2 fL 7.4 - 10.4 10/01 N [facility] H[facility] MCV 95 fL 80 - 97 10/01 N [facility] H[facility] MCHC 33.1 g/dL 33.0 - 36.5 10/01 N [facility] Hemat[facility] MCH 31 pg 28 - 33 10/01 N [facility] Hemoglobin 12.4 g/dL 13.0 - 16.3 10/01 L [facility] Hematocrit 38 % 40 - 49 10/01 L [facility] Miscella neous Sendouts PTH Intact.LC 117 pg/mL 10/01 H Result Comment: Performed At: [address] [id number] Bebo Martinez PhD Ph:[phone] [facility] eGFR CKD EPI 41 mL/min/1 .73_m2 10/01 Interpretiv e Data: Estimated Glomerular Filtration Rate (eGFR) calculated using the 2020 Chronic Kidney Disease-Epi demiology (CKD-EPI) Collaborati on creatinine equation; units of measure are mL/min/1.73 m2. Results are only valid for adults (>=18 years) whose serum creatinine is in steady state. eGFR calculation s are not valid for patients with acute kidney injury and for patients on dialysis. Creatinine- based estimates of kidney function may also be inaccurate in patients with reduced creatinine generation due to decreased muscle mass (e.g., malnutritio n, severe hypoalbumin emia, sarcopenia, chronic neuromuscul ar disease, amputations , severe heart failure or liver disease) and in patients with increased creatinine generation due to increased muscle mass (e.g., muscle builders, anabolic steroids) or increased dietary intake. CKD is diagnosed based on abnormaliti es of kidney structure or function, present for >3 months, with implication s for health and disease. CKD is classified and staged based on cause, eGFR and albuminuria (quantified as urine albumin to creatinine ratio). An eGFR >60 mL/min/1.73 m2 in the absence of increased urine albumin excretion or structural abnormaliti es does not CKD. eGFR provides only an estimate of measured GFR within +/- 30% for most patients. As mentioned, nutritional status and muscle mass, among many factors, may lead to inaccuracy in the estimate. Consider ordering the creatinine- cystatin C panel if better accuracy is needed for clinical decision-willem fuller. eGFR (mL/min/1.7 3 m2) CKD stage Interpretat ion Normal 60-89 Mild decrease 45-59 Mild to moderate decrease 30-44 Moderate to severe decrease 15-29 Severe decrease <15 Kidney failure [facility] Neutrophil % Auto 79.4 % 46.0 - 77.0 06/29 [facility] H[facility] Neutro Absolute 7.5 x10^3/mc L 2.0 - 7.0103 06/29 H [facility] Hemat[facility] Monocyte % Auto 6 % 1 - 12 06/29 N [facility] Hematolo gy [place] Absolute 0.6 x10^3/mc L 0.2 - 0.8103 06/29 N [facility] H[facility] Lymph Absolute 1.2 x10^3/mc L 1.2 - 4.0103 06/29 N [facility] H[facility] Lymphocyte % Auto 12.6 % 20.0 - 40.0 06/29 L [facility] Eosinophil % Auto 1 % 0 - 5 06/29 N [facility] H[facility] Eos Absolute 0.1 x10^3/mc L 0.0 - 0.7103 06/29 N [facility] H[facility] Basophil % Auto 0.4 % 0.0 - 2.5 06/29 N [facility] H[facility] Baso Absolute 0.0 x10^3/mc L 0.0 - 0.1103 06/29 N [facility] Hemat[facility] WBC 9.4 x10^3/mc L 4.0 - 11.0103 06/29 N [facility] H[facility] RDW 14.6 % 11.0 - 14.9 06/29 N [facility] Hemat[facility] RBC 4.4 x10^6/mc L 4.0 - 5.6106 06/29 N [facility] Hemat[facility] Platelets 298.0 x10^3/mc L 150.0 - 450.0103 06/29 N [facility] Hemat[facility] MPV 9.4 fL 7.4 - 10.4 06/29 N [facility] Hemat[facility] MCV 93 fL 80 - 97 06/29 N [facility] Hemat[facility] gy MCHC 33.3 g/dL 33.0 - 36.5 06/29 N [facility] Hemat[facility] MCH 31 pg 28 - 33 06/29 N [facility] Hemat[facility] Hemoglobin 13.5 g/dL 13.0 - 16.3 06/29 N [facility] Hemat[facility] Hematocrit 41 % 40 - 49 06/29 N [facility] Chemistr y Calcium Total.LC 8.8 mg/dL 06/29 [facility] PTH Intact.LC 86 pg/mL 06/29 H [facility] Chem[facility] Intact PTH LC COMMENT 06/29 Result Comment: Interpretat ion Intact PTH Calcium (pg/mL) (mg/dL) Normal 15 - 65 8.6 - 10.2 Primary Hyperparath yroidism >65 >10.2 Secondary Hyperparath yroidism >65 <10.2 Non-Parathy roid Hypercalcem ia <65 >10.2 Hypoparathy roidism <15 < 8.6 Non-Parathy roid Hypocalcemi a 15 - 65 < 8.6 Performed At: [facility] [address], [place] [id number] Bebo Martinez PhD Ph:[phone] [facility] Immunolo gy/Serol ogy C3 Serum LC 110 mg/dL 06/29 Result Comment: Performed At: [facility] [address], [place] [id number] Bebo Martinez PhD Ph:[phone] [facility] Miscella neous Sendouts Complement C4 LC 18 mg/dL 06/29 Result Comment: Performed At: [facility] [address], [place] [id number] Bebo Martinez PhD Ph:[phone] [facility] Immunolo gy/Serol ogy DELFINA Scrn Negative 7 (06/30/23 12:48 PM) 06/29 N Interpretiv e Data: - DELFINA Screen Titer Result Further Testing - Negative <1:80 No DELFINA Negative N/A Yes: STEFANY AG and dsDNA PANEL Cytoplasmic Stain Observed Positive 1:80 - 1:160 No Positive >/=1:320 Yes: STEFANY AG and dsDNA PANEL STEFANY Ag and dsDNA PANEL contains Centromere, dsDNA, Yodit-1, Ribosomal P, FABRIC SOURCER/Sm, Ro-52, Scl-70, Sm, SS-A and SS-B. The performance characteris tics of this assay have not been evaluated for use in pediatric populations . Methodology : Indirect Immunofluor escence Assay (IIFA) [facility] Sodium 137 mmol/L 136 - 145 06/29 N [facility] Potassium Lvl 4.5 mmol/L 3.5 - 5.1 06/29 N [facility] Glucose Lvl 124 mg/dL 74 - 99 06/29 H [facility] Chem[facility] Creatinine Level 1.00 mg/dL 0.72 - 1.25 06/29 N [facility] Chem[facility] CO2 21 mmol/L 22 - 29 06/29 L [facility] Chem[facility] Chloride 105 mmol/L 98 - 107 06/29 N [facility] Chem[facility] Calcium 9.4 mg/dL 8.4 - 10.2 06/29 N [facility] Chemist[facility] y BUN/Creat Ratio 24 mg/dL 12 - 20 06/29 H [facility] Chem[facility] BUN 24 mg/dL 8 - 26 06/29 N [facility] Chemist[facility] y AGAP 11.00 0.00 - 15.00 06/29 N [facility] Immunolo gy/Serol ogy Immunofixa tion Result.LC COMMENT 06/29 Result Comment: No monoclonali ty detected. [facility] Immunolo gy/Serol ogy IgG, Total.LC 987 mg/dL 06/29 [facility] Immunolo gy/Serol ogy IgA, Total.LC 325 mg/dL 06/29 [facility] Immunolo gy/Serol ogy IgM, Total.LC 28 mg/dL 06/29 Result Comment: Performed At: [address] [id number] Bebo Martinez PhD Ph:[phone] [facility] Creatine Kinase Total.LC 66 U/L 06/29 [facility] Macro Type 2 LC 0 % 06/29 [facility] CK-MM LC 100 % 06/29 [facility] Macro type 1 LC 0 % 06/29 [facility] CK-MB LC 0 % 06/29 [facility] CK-BB LC 0 % 06/29 Result Comment: Performed At: [address] [id number] Bebo Martinez PhD Ph:[phone] [facility] Miscella neous Sendouts Complement CH50.LC 57 U/mL 06/29 Result Comment: Age Male Female 1 - 30 days Not Estab. Not Estab. 31 days - 6 months >32 >20 7 months - 17 years >39 >39 >17 years >41 >41 NOTE: The adult ( >17 years ) reference interval range is used to flag abnormals on this report. If the patient is 17 years old or younger, use the table above to determine out of range values. Performed At: [address] [id number] Bebo Martinez PhD Ph:[phone] [facility] Miscella neous Sendouts Corona Light Chain Free.LC 51.3 mg/L 06/29 H [facility] Miscella neous Sendouts Lambda Light Chain Free.LC 26.5 mg/L 06/29 H [facility] Miscella neous Sendouts Corona/Barrera da Free.LC 1.94 06/29 H Result Comment: Performed At: [address] [id number] Bebo Martinez PhD Ph:[phone] [facility] Chemistr y eGFR CKD EPI 78 mL/min/1 .73_m2 06/29 Interpretiv e Data: Estimated Glomerular Filtration Rate (eGFR) calculated using the 2020 Chronic Kidney Disease-Epi demiology (CKD-EPI) Collaborati on creatinine equation; units of measure are mL/min/1.73 m2. Results are only valid for adults (>=18 years) whose serum creatinine is in steady state. eGFR calculation s are not valid for patients with acute kidney injury and for patients on dialysis. Creatinine- based estimates of kidney function may also be inaccurate in patients with reduced creatinine generation due to decreased muscle mass (e.g., malnutritio n, severe hypoalbumin emia, sarcopenia, chronic neuromuscul ar disease, amputations , severe heart failure or liver disease) and in patients with increased creatinine generation due to increased muscle mass (e.g., muscle builders, anabolic steroids) or increased dietary intake. CKD is diagnosed based on abnormaliti es of kidney structure or function, present for >3 months, with implication s for health and disease. CKD is classified and staged based on cause, eGFR and albuminuria (quantified as urine albumin to creatinine ratio). An eGFR >60 mL/min/1.73 m2 in the absence of increased urine albumin excretion or structural abnormaliti es does not CKD. eGFR provides only an estimate of measured GFR within +/- 30% for most patients. As mentioned, nutritional status and muscle mass, among many factors, may lead to inaccuracy in the estimate. Consider ordering the creatinine- cystatin C panel if better accuracy is needed for clinical decision-willem fuller. eGFR (mL/min/1.7 3 m2) CKD stage Interpretat ion Normal 60-89 Mild decrease 45-59 Mild to moderate decrease 30-44 Moderate to severe decrease 15-29 Severe decrease <15 Kidney failure [facility] Hemat[facility] ESR Auto Plus 13 mm/h 0 - 20 06/29 N Interpretiv e Data: The clinical significanc e of an ESR result obtained from an abnormal sample, including but not limited to icteric, lipemic, cold agglutinins , anemic conditions, low hemoglobin concentrati ons, hemolysis, or any pathologica l condition that interferes or prevents a clear red cell to plasma interface is subject to a high degree of variability . [facility] Miscella neous Sendouts Misc Result.LC See Images 06/29 Interpretiv e Data: Attention [facility]: This order is to be processed manually. No electronic order will be sent. [facility] Miscella neous Sendouts Req Order?. LC [id number] 06/29 [facility] Miscella neous Sendouts Misc Specimen Source? Urine 24 hr 06/29 [facility] Miscella neous Sendouts Test Name.MAITE Uric Acid, 24 HR urine 06/29 [facility] Urinalys is UA WBC TNTC /HPF 06/29 N [facility] Urinalys is UA Urobilinog en 0.2 E.U./dL 0.2 - 1.0.. 06/29 N [facility] Urinalys is UA Spec [place] 1.010 1.001 - 1.035 06/29 N [facility] Urinalys is UA RBC 5-9 /HPF 06/29 A [facility] Urinalys is UA Protein 30 mg/dL 06/29 A [facility] Urinalys is UA pH 5.5 5 - 8 06/29 [facility] Urinalys is UA Nitrite Negative (06/30/23 11:13 AM) 06/29 N [facility] Urinalys is UA Mucous 1+ /HPF 06/29 N [facility] Urinalys is UA Leuk Esterase Trace *ABN* (06/30/23 11:13 AM) 06/29 A [facility] Urinalys is UA Ketones Negative mg/dL 06/29 N [facility] Urinalys is UA Hyaline Cast 0-2 /LPF 06/29 A [facility] Urinalys is UA Glucose 500 mg/dL 06/29 A [facility] Urinalys is UA Epi Squam 3-4 06/29 [facility] Urinalys is UA Color Yellow *NA* (06/30/23 11:13 AM) 06/29 [facility] Urinalys is UA Clarity Cloudy *NA* (06/30/23 11:13 AM) 06/29 [facility] Urinalys is UA Blood Small *NA* (06/30/23 11:13 AM) 06/29 [facility] Urinalys is UA Bili Negative (06/30/23 11:13 AM) 06/29 N [facility] Urinalys is UA Bacteria 1+ *ABN* (06/30/23 11:13 AM) 06/29 A [facility] Chemistr y JONNIE Interpreta tion Ur.LC COMMENT 06/29 Result Comment: No monoclonali ty detected. Performed At: [address] [id number] Bebo Martinez PhD Ph:[phone] [facility] Sodium 137 mmol/L 136 - 145 05/02 N [facility] Chem[facility] Potassium Lvl 4.7 mmol/L 3.5 - 5.1 05/02 N [facility] Chemist[facility] Glucose Lvl 120 mg/dL 74 - 99 05/02 H [facility] Chemist[facility] Creatinine Level 1.40 mg/dL 0.72 - 1.25 05/02 H [facility] Chemist[facility] CO2 17 mmol/L 22 - 29 05/02 L [facility] Chemist[facility] y Chloride 108 mmol/L 98 - 107 05/02 H [facility] Chemist[facility] y Calcium 9.5 mg/dL 8.4 - 10.2 05/02 N [facility] Chemistr y BUN/Creat Ratio 36 mg/dL 12 - 20 05/02 H [facility] Chemistr y BUN 50 mg/dL 8 - 26 05/02 H [facility] Chemistr y AGAP 12.00 0.00 - 15.00 05/02 N [facility] Chemist[facility] y Triglyceri adriana 80 mg/dL 7 - 149 05/02 N Interpretiv e Data: AGES 0-9: Desirable: < 75 mg/dL Borderline High: 75-99 mg/dL High: >/= 100 mg/dL AGES 10-19: Desirable: < 90 mg/dL Borderline High: 90-129 mg/dL High: >/= 130 mg/dL ADULTS: Desirable: < 150 mg/dL Borderline High: 150-199 mg/dL High: >/= 240 mg/dL Very High: >/= 500 mg/dL [facility] LDL/HDL 1 05/02 [facility] Chem[facility] LDL 64 mg/dL 100 - 130 05/02 L Interpretiv e Data: AGES 0-19: Desirable: < 110 mg/dL Borderline High: 110-129 mg/dL High: >/= 130 mg/dL ADULTS: Desirable: <100 mg/dL Near/above optimal: 100-130 mg/dL Borderline High: 131-159 mg/dL High: 160-189 mg/dL Very High: e190 mg/dL [facility] HDL Cholestero l 62 mg/dL 40 - 59 02/20 /2024 H Interpretiv e Data: HDL (HIGH DENSITY LIPOPROTEIN ): ADULTS: Low: < 40 mg/dL High: >/= 60 mg/dL AGES 0 -19: Low: < 40 mg/dL Borderline Low: 40 - 45 mg/dL Acceptable: > 45 mg/dL [facility] Cholestero l Total 146 mg/dL 05/02 N Interpretiv e Data: According to the [employer] : AGES 0-19: Desirable: < 170 mg/dL Borderline High: 170-199 mg/dL High Blood Cholesterol : >/= 200 mg/dL ADULTS: Desirable < 200 mg/dL Borderline High: 200-239 mg/dL High Blood Cholesterol : >/= 240 mg/dL [facility] Chol/HDL 2 mg/dL 05/02 [facility] Hematolo gy WBC 8.8 x10^3/mc L 4.0 - 11.0103 05/02 N [facility] Hematolo gy RDW 14.9 % 11.0 - 14.9 05/02 N [facility] Hematolo gy RBC 4.1 x10^6/mc L 4.0 - 5.6106 05/02 N [facility] Hematolo gy Platelets 298.0 x10^3/mc L 150.0 - 450.0103 05/02 N [facility] Hematolo gy MPV 9.7 fL 7.4 - 10.4 05/02 N [facility] Hematolo gy MCV 94 fL 80 - 97 05/02 N [facility] Hematolo gy MCHC 33.2 g/dL 33.0 - 36.5 05/02 N [facility] Hematolo gy MCH 31 pg 28 - 33 05/02 N [facility] Hematolo [facility] Hemoglobin 12.8 g/dL 13.0 - 16.3 05/02 L [facility] Hematolo [facility] Hematocrit 39 % 40 - 49 05/02 L [facility] Chemist[facility] Hemoglobin A1c 6.5 % 4.0 - 5.6 05/02 H Interpretiv e Data: Normal: 4.0 - 5.6% Increased Risk: 5.7 - 6.4% Diabetic Range: e 6.5% For patients without diabetes, the normal range for the hemoglobin A1c test is between 4% and 5.6%. Hemoglobin A1c levels between 5.7% and 6.4% indicate increased risk of diabetes, and levels of 6.5% or higher indicate diabetes. Because studies have repeatedly shown that out-of-cont rol diabetes results in complicatio ns from the disease, the goal for people with diabetes is a hemoglobin A1c less than 7%. The higher the hemoglobin A1c, the higher the risks of developing complicatio ns related to diabetes. If confirmatio n is needed, consider recalling the patient and ordering Hemoglobin Electrophor esis. [facility] Chem[facility] eAvg Glucose 140 mg/dL 05/02 [facility] PSA Total 0.50 ng/mL 0.05 - 6.22 05/02 N Interpretiv e Data: This assay shows no biotin interferenc e in samples with biotin concentrati ons up to 1200 ng/mL. [facility] eGFR CKD EPI 52 mL/min/1 .73_m2 05/02 Interpretiv e Data: Estimated Glomerular Filtration Rate (eGFR) calculated using the 2020 Chronic Kidney Disease-Epi demiology (CKD-EPI) Collaborati on creatinine equation; units of measure are mL/min/1.73 m2. Results are only valid for adults (>=18 years) whose serum creatinine is in steady state. eGFR calculation s are not valid for patients with acute kidney injury and for patients on dialysis. Creatinine- based estimates of kidney function may also be inaccurate in patients with reduced creatinine generation due to decreased muscle mass (e.g., malnutritio n, severe hypoalbumin emia, sarcopenia, chronic neuromuscul ar disease, amputations , severe heart failure or liver disease) and in patients with increased creatinine generation due to increased muscle mass (e.g., muscle builders, anabolic steroids) or increased dietary intake. CKD is diagnosed based on abnormaliti es of kidney structure or function, present for >3 months, with implication s for health and disease. CKD is classified and staged based on cause, eGFR and albuminuria (quantified as urine albumin to creatinine ratio). An eGFR >60 mL/min/1.73 m2 in the absence of increased urine albumin excretion or structural abnormaliti es does not CKD. eGFR provides only an estimate of measured GFR within +/- 30% for most patients. As mentioned, nutritional status and muscle mass, among many factors, may lead to inaccuracy in the estimate. Consider ordering the creatinine- cystatin C panel if better accuracy is needed for clinical decision-ma alina. eGFR (mL/min/1.7 3 m2) CKD stage Interpretat ion Normal 60-89 Mild decrease 45-59 Mild to moderate decrease 30-44 Moderate to severe decrease 15-29 Severe decrease <15 Kidney failure [facility] H[facility] Neutrophil % Auto 77.1 % 46.0 - 77.0 05/02 H [facility] Hematolo gy Neutro Absolute 6.7 x10^3/mc L 2.0 - 7.0103 05/02 N [facility] Hematolo gy Monocyte % Auto 6 % 1 - 12 05/02 N [facility] Hematolo gy [place] Absolute 0.6 x10^3/mc L 0.2 - 0.8103 05/02 N [facility] Hematolo gy Lymph Absolute 1.2 x10^3/mc L 1.2 - 4.0103 05/02 N [facility] Hematolo gy Lymphocyte % Auto 14.2 % 20.0 - 40.0 05/02 L [facility] Hematolo [facility] Eosinophil % Auto 2 % 0 - 5 05/02 N [facility] Hemat[facility] Eos Absolute 0.2 x10^3/mc L 0.0 - 0.7103 05/02 N [facility] Hematolo gy Basophil % Auto 0.3 % 0.0 - 2.5 05/02 N [facility] Hematolo gy Baso Absolute 0.0 x10^3/mc L 0.0 - 0.1103 05/02 N [facility] Chemistr y Ur Microalbum in 262 mg/L 05/02 H Interpretiv e Data: To minimize intra-indiv idual variation, analysis of three random urine samples collected over the course of a week has also been recommended . [facility] Chem[facility] Ur Microalb/U r Creat Ratio 494 mg/gCr 05/02 H [facility] Chem[facility] Ur Creat 53 mg/dL 05/02 [facility] Vital Signs Combined list of inpatient and outpatient Vital Signs from [facility] and [facility], ranging from 12 months to all on record, depending upon the facility. Vital Sign Value Date Comments Source Systolic Blood Pressure 104mm[Hg] 05/05/2023 19:09:00 [facility]ulatory [facility] Diastolic Blood Pressure 61mm[Hg] 05/05/2023 19:09:00 [facility]ulatory [facility] Mean Arterial Pressure, Calc 75mm[Hg] 05/05/2023 19:09:00 [facility] Peripheral Pulse Rate 78bpm 05/05/2023 19:09:00 Ambulatory Pharmacy Respiratory Rate 16br/min 05/05/2023 19:09:00 Ambulatory Pharmacy BP Site 05/05/2023 19:09:00 [facility] Blood Pressure Manual 05/05/2023 19:09:00 Ambulatory Pharmacy Systolic Blood Pressure 131mm[Hg] 02/01/2024 19:54:00 [facility]ulatory Pharmacy Diastolic Blood Pressure 80mm[Hg] 02/01/2024 19:54:00 Ambulatory [facility]acy Mean Arterial Pressure, Calc 97mm[Hg] 02/01/2024 19:54:00 Ambulatory [facility] Peripheral Pulse Rate 78bpm 02/01/2024 19:54:00 Ambulatory Pharmacy BP Site 02/01/2024 19:54:00 [facility] Encounters Combined list of: 1) Encounters [facility] facilities going back up to thelast 18 months. 2) Encounters from the Department of [facility] facilities going back up to 280 months. Location Location Details Encounter Type Encounter Number Reason For Visit Attending Provider ADM Date DC Date Status Disposition Source [facility] Medicine Team 2) OUTPATIENT [id number] f/u diabete s/chol CHRISTINE CASTANO 05/11 Released w/o Limitations [facility]( Family Medicin e Team 2) [facility] Medicine Team 2) TELE CONSULT [id number] contact # CHRISTINE CASTANO 05/11 [facility]( [facility] Medicin e Team 2) [facility] Medicine Team 2) OUTPATIENT [id number] f/u diabete DONNA Meyers 11/26 Released w/o Limitations [facility]( Family Medicin e Team 2) [address] [place] [address] [facility] ([facility]Sco tt [facility] [place] [place] [facility] Tm Blue) OUTPATIENT [id number] 59 yr old phys, diabete sshelby PAUL E 11/23 Released w/o Limitations [address] [place] [address] Preston HERRERAB ([facility] [place])(S cott [facility] [place] [place] [facility] Tm Blue) [address] [place] [address] Preston [facility] ([facility] [place]Sco tt [facility] [place] [place] [facility] Tm Blue) OUTPATIENT [id number] F/U DIABETE S CARLOZ EDGAR 03/23 Released w/o Limitations [address] [place] [address] [facility] ([facility] [place]S cott [facility] [place] [place] [facility] Tm Blue) [address] [place] [address] Preston [facility] ([facility] [place]Sco tt [facility] [place] [place] [facility] Tm Blue) OUTPATIENT [id number] f/u CARLOZ EDGAR 07/07 Released w/o Limitations [address] [place] [address] [facility] ([facility] [place]S cott [facility] [place] [place] [facility] Tm Blue) [address] [place] [address] Preston SHIRLEY [facility] [place]Opt ometry) OUTPATIENT [id number] diabeti c yearly eye exam ANOOP MARTINEZ 07/11 Released w/o Limitations [address] [place] [address] [facility] ([facility] [place])(O ptometr y) [address] [place] [address] Preston [facility] ([facility] [place]Sco tt [facility] [place] [place] [facility] Tm Blue) OUTPATIENT [id number] Needs to discuss meds and future treatme nt JUAN C DUNHAM 11/17 Released w/o Limitations [address] [place] [address] Preston [facility] ([facility] [place]S cott [facility] [place] [place] [facility] [place]) [address] [place] [address] Preston [facility] ([facility] [place]Sco tt [facility] [place] [place] [facility] Tm Blue) TELE CONSULT [id number] Medicat ion Request JUAN C DUNHAM 07/[address] [place] [address] [facility] ([facility] [place]S cott [facility] [place] [place] [facility] Tm Blue) [address] [place] [address] Preston [facility] ([facility] [place])(Sco tt [facility] [place] [place] [facility] Tm Blue) OUTPATIENT [id number] FU FOR DIABETE S AND CHECK UP JUAN C DUNHAM 07/29 Released w/o Limitations [address] [place] [address] [facility] ([facility] [place])(S cott OF [facility] Tm Blue) [address] [place] [address] Preston SHARONB ([facility] [place]Sco tt [facility] [place] [place] [facility] Tm Blue) TELE CONSULT [id number] Medicat ion Request JUAN C DUNHAM 07/[address] [place] [address] Preston [facility]ARONB ([facility] [place])(S cott OF [facility] Tm Blue) [address] [place] [address] [employer] ([facility] [place])(Opt ometry) OUTPATIENT [id number] eye exam MICHELLE ANOOP Laci 11/05 Released w/o Limitations [address] [place] [address] [facility] ([facility] [place])(O ptometr y) [address] [place] [address] [employer] ([facility] [place]Sco tt [facility] [place] [place] [facility] Tm Blue) TELE CONSULT [id number] Medicat ion Request JUAN C DUNHAM 11/[address] [place] [address] Preston [facility]ERRER[facility] ([facility] [place]S cott [facility] [place] [place] [facility] Tm Blue) [address] [place] [address] Preston [facility]ERRERAB ([facility] [place])(Sco tt [facility] [place] [place] [facility] Tm Blue) OUTPATIENT [id number] F/U EVAL FOR BP AND CHOLEST DEMETRIS JUAN C DUNHMA 12/04 Released w/o Limitations [address] [place] [address] rPeston [facility]ERRERAB ([facility] [place])(S cott [facility] [place] [place] [facility] Tm Blue) [address] [place] [address] [place] [facility]ERRER[facility] ([facility]Sco tt [facility] [place] [place] FAMRES Tm Blue) TELE CONSULT [id number] Medicat ion Request JUAN C DUNHAM 07/[address] [place] [address] [place] [facility] ([facility] [place])(S cott [facility] [place] [place] FAMRES Tm Blue) [address] [place] [address] [place] HERRERAB [facility]Sco tt [facility] [place] [place] FAMRES Tm Blue) TELE CONSULT [id number] Lab orders - PCM HARISH Ibanez 07/[address] [place] [address] [place] [facility] ([facility])(S cott [facility] [place] [place] FAMRES Tm Blue) [address] [place] [address] [place] [facility]ERRER[facility]Opt ometry) OUTPATIENT [id number] well glasses [id number] TOMMY RUVALCABA 07/17 Released w/o Limitations [address] [place] [address] [employer] ([facility])(O ptometr y) [address] [place] [address] [place] [facility] ([facility])(Sco tt [facility] [place] [place] FAMRES Tm Blue) OUTPATIENT [id number] f/u diabete s and blood pressur e [phone] MALIK CANAS 07/24 Released w/o Limitations [address] [place] [address] [place] SHIRLEY ([facility])(S cott [facility] [place] [place] FAMRES Tm Blue) [address] [place] [address] [place] [facility]ERRER[facility]Sco tt [facility] [place] [place] FAMRES Tm Blue) TELE CONSULT [id number] f/u with Makeda jones cad tlt HARISH ECHEVARRIA 06/[address] [place] [address] [place] [facility] [facility]S cott [facility] [place] [place] FAMRES Tm Blue) [address] [place] [address] [place] [facility]ERRER[facility]Sco tt [facility] [place] [place] FAMRES Tm Blue) OUTPATIENT [id number] fu for annual labs and meds MALIK CANAS 07/13 Released w/o Limitations [address] [place] [address] [place] [facility] [facility]S cott [facility] [place] [place] FAMRES Tm Blue) [address] [place] [address] [place] [facility] ([facility])(Sco tt [facility] [place] [place] FAMRES Tm Blue) TELE CONSULT [id number] needs referal for yearly diabeti c eye exam. no appts at [facility] cad/dkk BOBBY RUTH 09/20 Referred for Appointment [address] [place] [address] [place]LEY [facility]S cott [facility] [place] [place] FAMRES Tm Blue) [address] [place] [address] [place] [facility]ERRER[place] [facility]Sco tt [facility] [place] [place] Fam Res Tm Green) TELE CONSULT [id number] Notes Entered by: EDMOND JAIMES 14 Jun 2011 1412 ------- ------- ------- ------- -- Lab request -Jenny dial/[phone]/MIGUEL Vidal 06/[address] [place] [address] [place] [facility] ([facility]S cott [facility] [place] [place] Fam Res Tm Green) [address] [place] [address] Preston SHARONB ([facility])(Sco tt [facility] [place] [place] Fam Res Tm Green) OUTPATIENT [id number] follow up diabete s/blood pressur e [phone] ANCELMO VAZQUEZ 07/07 Released w/o Limitations [address] [place] [address] [place] [facility] ([facility])(S cott [facility] [place] [place] Fam Res Tm Green) [address] [place] [address] [place] SHARONB [facility]Opt ometry) OUTPATIENT [id number] routine daibeti c eye exam [id number] LETTY CLEARY 05/30 Released w/o Limitations [address] [place] [address] Group [place] [facility] ([facility])(O ptometr y) [address] [place] [address] [place] SHARONB ([facility])(Sco tt [facility] [place] [place] Fam Res Tm Green) TELE CONSULT [id number] Notes Entered by: PAU ROE 11 Jun 2012 1334 ------- ------- ------- ------- -- Lab request MIGUEL Deng 06/11 Referred for Appointment [address] [place] [address] [place] SHARONB ([facility]S cott [facility] [place] [place] Fam Res Tm Green) [address] [place] [address] [place] [facility] ([facility])(Sco tt [facility] [place] [place] Fam Res Tm Green) OUTPATIENT [id number] f/u for diabete s, cholest demetris, blood pressur [id number] ANCELMO VAZQUEZ 07/03 Released w/o Limitations [address] [place] [address] [place] SHARONB ([facility]S cott [facility] [place] [place] Fam Res Tm Green) [address] [place] [address] [place] SHARONB [facility]Sco tt [facility] [place] [place] Fam Res Tm Green) TELE CONSULT [id number] Notes Entered by: GUME ALCARAZ 06 Jun 2013 1516 ------- ------- ------- ------- -- Order labs - Alexis - JENNIFER SARAVIA 06/[address] [place] [address] [place] SHARONB ([facility])(S cott [facility] [place] [place] Fam Res Tm Green) [address] [place] [address] [place] [facility] ([facility])(Sco tt [facility] [place] [place] Fam Res Tm Green) OUTPATIENT [id number] f/u diabeti c BETZAIDA BAXTER 06/26 Released w/o Limitations [address] [place] [address] [place] SHARONB ([facility])(S cott [facility] [place] [place] Fam Res Tm Green) [address] [place] [address] [place] [facility] ([facility] [facility] [place] Res Tm Red) OUTPATIENT [id number] right ear pain [phone] ROCKY BOYCE 09/30 Released w/o Limitations [address] [place] [address] [employer] ([facility])(S cott [facility] Fam Res Tm Red) [address] [place] [address] [place] [facility])([facility] FAMRES Tm Blue) TELE CONSULT [id number] Notes Entered by: VERA GOODMAN 28 Oct 2013 1309 ------- ------- ------- ------- -- Network Results - AUDIOLO GY - 10/09/13 LEILANI GOLDMAN 10/[address] [place] [address] [place] [facility])(S [facility] FAMRES Tm Blue) [address] [place] [address])([facility] Fam Res Tm Red) TELE CONSULT [id number] Notes Entered by: CHRISTAIN DON 27 May 2014 1328 ------- ------- ------- ------- -- Request ing blood work/ Estefania/ UBALDO GRANT 05/[address] [place] [address] [place] [facility])([facility] Fam Res Tm Red) [address] [place] [address])([facility] Fam Res Tm Red) OUTPATIENT [id number] FU on BP, diabete s and cholest demetris/61 [phone] NICKOLAS SADLER 06/13 Released w/o Limitations [address] [place] [address] [place] [facility])(S [facility] Fam Res Tm Red) [address] [place] [address] [place] [facility])(Opt ometry) OUTPATIENT [id number] diabeti c eye exam MO CARTY 06/23 Released w/o Limitations [address] [place] [address] [place] [facility]O ptometr y) [address] [place] [address] [place] [facility])(Alo tt [facility] Fam Res Tm Red) TELE CONSULT [id number] Notes Entered by: STEF GARCIA 15 Sep 2014 1907 ------- ------- ------- ------- -- A1C Results NICKOLAS SADLER 09/[address] [place] [address] [place] SHARONB [facility]S [facility] Fam Res Tm Red) [address] [place], [place] [address]B [facility]) OUTPATIENT [id number] f/u on lab work [phone] 0 JAS HILL 09/18 Released w/o Limitations [address] [place] [address] [place] [facility])(S [facility] Fam Res Tm Red) [address] [place] [address] [place] [facility])([facility] Fam Res Tm Red) TELE CONSULT [id number] Notes Entered by: Teddy MORALES 16 Mar 2015 0919 ------- ------- ------- ------- -- Lab order and med renewal /Stokei er/[phone] LUIS EDUARDO QUINONEZ 03/[address] [place] [address] [place] [facility])([facility] Fam Res Tm Red) [address] [place] [address] [place] [facility])([facility] Fam Res Tm Red) OUTPATIENT [id number] fu diabete s,dalton sterol and high blood pressur e [phone] JAS HILL 04/20 Released w/o Limitations [address] [place] [address] [place] [facility])([facility] Fam Res Tm Red) [address] [place] [address] [place] [facility])([facility] Fam Res Tm Red) TELE CONSULT [id number] Notes Entered by: MG SIERRA ELS 25 May 2015 0832 ------- ------- ------- ------- -- Prescri ption Update/ /Christophe er//[phone] .[phone] LUIS EDUARDO QUINONEZ 05/[address] [place] [address] [place] [facility])(S [facility] Fam Res Tm Red) [address] [place] [address] [place] [facility])(Fam adele Med Tm B Non-AD BCC) TELE CONSULT [id number] Notes Entered by: BIANCA QUINONEZ 09 Jul 2015 1527 ------- ------- ------- ------- -- [phone] LUIS EDUARDO QUINONEZ 07/[address] [place] [address])(F amily Med Tm B Non-AD BCC) [address] [place] [address])([place]o [facility] Fam Res Tm Red) TELE CONSULT [id number] Notes Entered by: Francis SETHI 06 Nov 2015 1054 ------- ------- ------- ------- -- Request ing lab work *Appt Nov 26* / Chris / UBALDO Jensen 11/[address] [place] [address])(S [facility] Fam Res Tm Red) [address] [place] [address])([facility] Fam Res Tm Red) OUTPATIENT [id number] F/U for diabete s JARROD WU 12/03 Released w/o Limitations [address] [place] [address])(S [facility] Fam Res Tm Red) [address] [place] [address])([facility] Fam Res Tm Red) TELE CONSULT [id number] Notes Entered by: GM OTT 11 Apr 2016 1330 ------- ------- ------- ------- -- Lab req/Car gloria/Capo 7.6080/ clm UBALDO GRANT 04/[address] [place] [address])(S [facility] Fam Res Tm Red) [address] [place] [address])([facility] Disease Managemen t) TELE CONSULT [id number] Notes Entered by: BIANCA QUINONEZ 19 Apr 2016 1633 ------- ------- ------- ------- -- PCM LUIS EDUARDO Knapp 04/[address] [place] [address])(S [facility] Disease Managem ent) [address] [place] [address])([facility] Fam Res Tm Red) OUTPATIENT [id number] f/u diabete s, blood pressur e, cholest demetris/61 [phone] JARROD WU 05/09 Released w/o Limitations [address] [place] [address] [place] [facility]S cott [facility] Fam Res Tm Red) [address] [place] [address] [place] [facility])(Sco tt Disease Managemen t) TELE CONSULT [id number] Notes Entered by: BIANCA QUINONEZ 11 May 2016 1630 ------- ------- ------- ------- -- PCM LUIS EDUARDO Knapp 05/[address] [place] [address] [place] [facility])(S cott Disease Managem ent) [address] [place] [address] [place] [facility])(Opt ometry) OUTPATIENT [id number] diabeti c eye exam NASREEN FERNÁNDEZ 05/26 Released w/o Limitations [address] [place] [address] [place] Ling [facility]O ptometr y) [address] [place] [address] [place] [facility])(Sco tt [facility] [place] [place] Fam Res Tm Green) TELE CONSULT [id number] Notes Entered by: GUME ALCARAZ 10 Apr 2017 1047 ------- ------- ------- ------- -- [facility] - - tsg UBALDO GRANT 04/[address] [place] [address] [place] [facility]S [facility] Fam Res Tm Green) [address] [place] [address] [place] [facility]Sco tt [facility] [place] [place] Fam Res Tm Green) OUTPATIENT [id number] follow up on diabete s, cholest rol and high blood pressur e JERRY CHENG 05/08 Released w/o Limitations [address] [place] [address] [place] [facility]S [facility] Fam Res Tm Green) [address] [place] [address] [place] [facility])(Sco tt Disease Managemen t) TELE CONSULT [id number] 3 Notes Entered by: BIANCA QUINONEZ 03 Apr 2018 1731 ------- ------- ------- ------- -- PCM LUIS EDUARDO Cutler 04/[address] [place] [address] [place] [facility]S cott Disease Managem ent) [address] [place] [address] [place] [facility])(Sco tt [facility] [place] [place] Fam Res Tm Green) OUTPATIENT [id number] f/u diabete ALICE Brothers 05/04 Released w/o Limitations [address] [place] [address] [place] [facility]S cott [facility] [place] [place] Fam Res Tm Green) [address] [place] [address] [place] [facility])(Sco tt [facility] [place] [place] FAMRES Tm Blue) TELE CONSULT [id number] 5 Notes Entered by: Laci DON 09 Aug 2018 1313 ------- ------- ------- ------- -- labs ALICE DON 08/09 Referred for Appointment [address] [place] [address] [place] [facility]S cott [facility] [place] [place] FAMRES Tm Blue) [address] [place] [address] [place] [facility])(Sco tt [facility] [place] [place] Fam Res Tm Green) TELE CONSULT [id number] 2 Notes Entered by: KAYLAN GAMBOA 13 Aug 2018 1022 ------- ------- ------- ------- -- Return Missed Call-La b Test Results -Med Renewal / Adilia carlson/ - UBALDO Beard 08/13 Referred for Appointment [address] [place] [address] [place] [facility]S cott [facility] [place] [place] Fam Res Tm Green) [address] [place] [address] [place] [facility])(Sco tt [facility] [place] [place] Fam Res Tm Green) TELE CONSULT [id number] 1 Notes Entered by: KAYLAN GAMBOA 14 Nov 2018 0959 ------- ------- ------- ------- -- Lab Test Results -Med Renewal Inquiry / Adilia carlson/ - ALICE Yu 11/14 Released to Self Care [address] [place] [address] [place] [facility]S cott [facility] [place] [place] Fam Res Tm Green) [address] [place] [address] [place] [facility])(Sco tt [facility] [place] [place] Fam Res Tm Green) TELE CONSULT [id number] Notes Entered by: IMTIAZ CAICEDO 02 Apr 2019 1341 ------- ------- ------- ------- -- Lab Order Request - Appt Apr / Moni / - sgj FRANNY PERALTAROSEANNE 04/02 Released to Self Care [address] [place] [address] [place] [facility]S cott [facility] [place] [place] Fam Res Tm Green) [address] [place] [address] [place] [facility])(Sco tt [facility] [place] [place] Fam Res Tm Green) OUTPATIENT [id number] General check up / medicat ions / lab results [id number] ALICE DON 04/26 Released w/o Limitations [address] [place] [address] [place] [facility]S cott [facility] [place] [place] Fam Res Tm Green) [address] [place] [address] [place] [facility])(Sco tt [facility] [place] [place] Fam Res Tm Green) TELE CONSULT [id number] Notes Entered by: SHIREEN BEE 10 Apr 2020 1339 ------- ------- ------- ------- -- Lab Request & SOFIA swann/Nerissa hassan/61 [phone] UBALDO GRANT 04/10 Released to Self Care [address] [place] [address] [place] [facility]S cott [facility] [place] [place] Fam Res Tm Green) [address] [place] [address] [place] [facility])(Sco tt [facility] [place] [place] Fam Res Tm Green) OUTPATIENT [id number] FTF-Fol low up diabete s/yrly check up-618. 477.608 0 VIVI HONEYCUTT 05/12 Released w/o Limitations [address] [place] [address] Group [place] [facility])(S cott [facility] [place] [place] Fam Res Tm Green) [address] [place] [address] [place] [facility])(Sco tt [facility] [place] [place] Fam Res Tm Green) TELE CONSULT [id number] Notes Entered by: KAYLAN GAMBOA 15 May 2020 0949 ------- ------- ------- ------- -- Freejoy le Glucose Monitor [facility]/ Adilia carlson/ - [facility] VIVI HONEYCUTT 05/15 Other Not Elsewhere Classified [address] [place] [address] Group [place] [facility] [facility]S cott [facility] [place] [place] Fam Res Tm Green) [address] [place] [address] [place] [facility]Sco tt [facility] [place] [place] Fam Res Tm Green) TELE CONSULT [id number] Notes Entered by: NAVYA ARAIZA 18 May 2020 1136 ------- ------- ------- ------- -- Med Renewal /[facility]/618 .477.60 80 VIVI HONEYCUTT 05/18 Other Not Elsewhere Classified [address] [place] [address] Group [place] [facility] [facility]S cott [facility] [place] [place] Fam Res Tm Green) [address] [place] [address] [place] [facility]Sco tt [facility] Res Tm Green) TELE CONSULT [id number] Notes Entered by: TOSHIA SYED 20 May 2020 0958 ------- ------- ------- ------- -- med inquiry /[facility]/[phone] UBALDO aLrkin 05/20 Medication Refill Forwarded [address] [place] [address] [place] [facility]S cott [facility] [place] [place] Fam Res Tm Green) [address] [place] [address] [place] [facility] [facility])(Sco tt [facility] Res Green) TELE CONSULT [id number] Notes Entered by: NAVYA ARAIZA 14 Aug 2020 1446 ------- ------- ------- ------- -- Lab Request /[facility]/618 .477.60 80 UBALDO GRANT 08/14 Released to Self Care [address] [place] [address] [place] [facility]ERRERALing [facility]S cott [facility] [place] [place] Fam Res Tm Green) [address] [place] [address] [place] [facility] [facility]Sco tt [facility] Res Tm Green) OUTPATIENT [id number] F2F - Lab Results , f/u on meds, RAINA MAY 06/28 /2021 Released w/o Limitations [address] [place] [address] [place] [facility] [facility]S cott [facility] [place] [place] Fam Res Tm Green) [address] [place] [address] [place] [facility])(Sco tt [facility] [place] [place] Fam Res Tm Green) TELE CONSULT [id number] 3 Notes Entered by: KAYLAN GAMBOA 19 Apr 2021 1109 ------- ------- ------- ------- -- Lab Test Request / Nichole/ UBALDO GRANT 04/19 Released to Self Care [address] [place] [address] [place] [facility] [facility]S cott [facility] [place] [place] Fam Res Tm Green) [address] [place] [address] [place] [facility])(Sco tt [facility] [place] [place] Fam Res Tm Green) OUTPATIENT [id number] HC - Diabete s F/U Lab Test Results - Med Renewal s 617.163 .7531 RAINA MAY 05/07 Released w/o Limitations [address] [place] [address])(S cott [facility] [place] [place] Fam Res Tm Green) [address] [place] [address])(Sco tt [facility] Res Green) TELE CONSULT [id number] Notes Entered by: Rambo WARD 30 Mar 2022 1334 ------- ------- ------- ------- -- Lab Order appt Apr/Virgilio upl649. 477.608 Dori FERNÁNDEZALONDRA Rambo 03/30 Other Not Elsewhere Classified [address] [place] [address])(S cott [facility] [place] [place] Fam Res Tm Green) [address] [place] [address] [place] [facility]Sco tt [facility] [place] [place] Fam Res Tm Green) OUTPATIENT [id number] diabete s, blood pressur e and cholest rol screeni ng F2F JONNY MOLINA 05/04 Released w/o Limitations [address] [place] [address] [place] [facility]S cott [facility] [place] [place] Fam Res Tm Green) [id number] [facility] [id number] Other seasona l allergi c rhiniti s MEGHAN JTOWYATT 01/22 Discharge Disposition: Home or Self Care 5A-3 karen Calix Between Visit 01/30 Discharge Disposition: Home or Self Care Jaqui magana Org -375 th [facility] [id number] BANDARDOLLY 02/11 Discharge Disposition: Home or Self Care 5A-3 75th MEDGRPKrystin Johnston -375 th [facility] Outpatient [id number] [facility] 02/14 Discharge Disposition: Home or Self Care 5A-3 75th MEDGRPKrystin Johnston -375 th [facility] Outpatient [id number] [facility] 03/01 Discharge Disposition: Home or Self Care 5A-3 karen AVILAGRP- [place] Procedures Combined list of: 1) Procedures from Department of Veterans Affairs facilities going back up to thelast 18 months, not all VA non-surgical procedures are included; 2) All procedures from the Department of Defense facilities. Procedure Procedure Type Code Date Perfomer Comments Sourc e No data available for this section [facility] RANGE OF MOTION MEASUREMENTS AND REPORT (SEPARATE PROCEDURE); EACH EXTREMITY (EXCLUDING HAND) OR EACH TRUNK SECTION (SPINE) 001 [facility] RANGE OF MOTION MEASUREMENTS AND REPORT (SEPARATE PROCEDURE); EACH EXTREMITY (EXCLUDING HAND) OR EACH TRUNK SECTION (SPINE) 000 [facility] FOOT EXAM PERFORMED (EXM THRU VIS INSP,SEN,W 10-G MONOFIL PLUS TEST ANY 1 OF THE FOLL:VIB USE 128-HZ RACHAEL FRK,PINPRICK SENSAT,ANKLE REF/VIB PERCEP THRESH,&PULS EXAM;RPT WHEN ALL 3 COMPONENTS ARE COMP) 023 [facility]; NOT OTHERWISE SPECIFIED (NOS) 022 [facility] TELE ASSESS & MGT SRV PROV QUAL NONPHYS HLTH CARE PRO TO EST PAT,PARENT,GUARD NOT ORIG REL ASSESS & MGT SRV PROV W/IN PREV 7 DAYS NOR LEAD ASSESS & MGT SRV/PX W/IN NXT 24 HR/SOON APT;5-10 MIN MED DIS 022 [facility] FOOT EXAMINATION PERFORMED (INCLUDES EXAMINATION THROUGH VISUAL INSPECTION, SENSORY EXAM WITH MONOFILAMENT, AND PULSE EXAM - REPORT WHEN ANY OF THE 3 COMPONENTS ARE COMPLETED) (DM) 021 [facility] TELE ASSESS & MGT SRV PROV QUAL NONPHYS HLTH CARE PRO TO EST PAT,PARENT,GUARD NOT ORIG REL ASSESS & MGT SRV PROV W/IN PREV 7 DAYS NOR LEAD ASSESS & MGT SRV/PX W/IN NXT 24 HR/SOON APT;5-10 MIN MED DIS 021 [facility] TELE ASSESS & MGT SRV PROV QUAL NONPHYS HLTH CARE PRO TO EST PAT,PARENT,GUARD NOT ORIG REL ASSESS & MGT SRV PROV W/IN PREV 7 DAYS NOR LEAD ASSESS & MGT SRV/PX W/IN NXT 24 HR/SOON APT;5-10 MIN MED DIS 021 DoD TELE ASSESS & MGT SRV PROV QUAL NONPHYS HLTH CARE PRO TO EST PAT,PARENT,GUARD NOT ORIG REL ASSESS & MGT SRV PROV W/IN PREV 7 DAYS NOR LEAD ASSESS & MGT SRV/PX W/IN NXT 24 HR/SOON APT;5-10 MIN MED DIS 021 DoD TELE ASSESS & MGT SRV PROV QUAL NONPHYS HLTH CARE PRO TO EST PAT,PARENT,GUARD NOT ORIG REL ASSESS & MGT SRV PROV W/IN PREV 7 DAYS NOR LEAD ASSESS & MGT SRV/PX W/IN NXT 24 HR/SOON APT;5-10 MIN MED DIS 021 DoD TELEPHONE CALLS BY A REGISTERED NURSE TO A DISEASE MANAGEMENT PROGRAM MEMBER FOR MONITORING PURPOSES; PER MONTH 019 DoD DISEASE MANAGEMENT PROGRAM, FOLLOW-UP/REASSESSM ENT 018 DoD TELE ASSESS & MGT SRV PROV QUAL NONPHYS HLTH CARE PRO TO EST PAT,PARENT,GUARD NOT ORIG REL ASSESS & MGT SRV PROV W/IN PREV 7 DAYS NOR LEAD ASSESS & MGT SRV/PX W/IN NXT 24 HR/SOON APT;5-10 MIN MED DIS 018 DoD DIABETIC INDICATOR; RETINAL EYE EXAM, DILATED, BILATERAL 017 DoD TELEPHONE CALLS BY A REGISTERED NURSE TO A DISEASE MANAGEMENT PROGRAM MEMBER FOR MONITORING PURPOSES; PER MONTH 017 [facility] DISEASE MANAGEMENT PROGRAM, FOLLOW-UP/REASSESSM ENT 017 DoD TELEPHONE CALLS BY A REGISTERED NURSE TO A DISEASE MANAGEMENT PROGRAM MEMBER FOR MONITORING PURPOSES; PER MONTH 017 DoD TELE ASSESS & MGT SRV PROV QUAL NONPHYS HLTH CARE PRO TO EST PAT,PARENT,GUARD NOT ORIG REL ASSESS & MGT SRV PROV W/IN PREV 7 DAYS NOR LEAD ASSESS & MGT SRV/PX W/IN NXT 24 HR/SOON APT;5-10 MIN MED DIS 017 DoD DISEASE MANAGEMENT PROGRAM, FOLLOW-UP/REASSESSM ENT 016 DoD TELE ASSESS & MGT SRV PROV QUAL NONPHYS HLTH CARE PRO TO EST PAT,PARENT,GUARD NOT ORIG REL ASSESS & MGT SRV PROV W/IN PREV 7 DAYS NOR LEAD ASSESS & MGT SRV/PX W/IN NXT 24 HR/SOON APT;5-10 MIN MED DIS 016 DoD TELEPHONE CALLS BY A REGISTERED NURSE TO A DISEASE MANAGEMENT PROGRAM MEMBER FOR MONITORING PURPOSES; PER MONTH 016 DoD TELEPHONE CALLS BY A REGISTERED NURSE TO A DISEASE MANAGEMENT PROGRAM MEMBER FOR MONITORING PURPOSES; PER MONTH 016 [facility] DISEASE MANAGEMENT PROGRAM, FOLLOW-UP/REASSESSM ENT 016 DoD TELEPHONE CALLS BY A REGISTERED NURSE TO A DISEASE MANAGEMENT PROGRAM MEMBER FOR MONITORING PURPOSES; PER MONTH 016 DoD DIABETIC INDICATOR; RETINAL EYE EXAM, DILATED, BILATERAL 015 [facility] DISEASE MANAGEMENT PROGRAM, FOLLOW-UP/REASSESSM ENT 015 DoD TELE ASSESS & MGT SRV PROV QUAL NONPHYS HLTH CARE PRO TO EST PAT,PARENT,GUARD NOT ORIG REL ASSESS & MGT SRV PROV W/IN PREV 7 DAYS NOR LEAD ASSESS & MGT SRV/PX W/IN NXT 24 HR/SOON APT;5-10 MIN MED DIS 015 DoD TELE ASSESS & MGT SRV PROV QUAL NONPHYS HLTH CARE PRO TO EST PAT,PARENT,GUARD NOT ORIG REL ASSESS & MGT SRV PROV W/IN PREV 7 DAYS NOR LEAD ASSESS & MGT SRV/PX W/IN NXT 24 HR/SOON APT;5-10 MIN MED DIS 013 DoD DIABETIC INDICATOR; RETINAL EYE EXAM, DILATED, BILATERAL 013 DoD TELE ASSESS & MGT SRV PROV QUAL NONPHYS HLTH CARE PRO TO EST PAT,PARENT,GUARD NOT ORIG REL ASSESS & MGT SRV PROV W/IN PREV 7 DAYS NOR LEAD ASSESS & MGT SRV/PX W/IN NXT 24 HR/SOON APT;5-10 MIN MED DIS 012 DoD TELE ASSESS & MGT SRV PROV QUAL NONPHYS HLTH CARE PRO TO EST PAT,PARENT,GUARD NOT ORIG REL ASSESS & MGT SRV PROV W/IN PREV 7 DAYS NOR LEAD ASSESS & MGT SRV/PX W/IN NXT 24 HR/SOON APT;5-10 MIN MED DIS 011 DoD TELE ASSESS & MGT SRV PROV QUAL NONPHYS HLTH CARE PRO TO EST PAT,PARENT,GUARD NOT ORIG REL ASSESS & MGT SRV PROV W/IN PREV 7 DAYS NOR LEAD ASSESS & MGT SRV/PX W/IN NXT 24 HR/SOON APT;5-10 MIN MED DIS 011 DoD FITTING OF SPECTACLES, EXCEPT FOR APHAKIA; BIFOCAL 010 DoD DIABETIC INDICATOR; RETINAL EYE EXAM, DILATED, BILATERAL 008 DoD FITTING OF SPECTACLES, EXCEPT FOR APHAKIA; BIFOCAL 007 DoD PNEUMOCOCCAL POLYSACCHARIDE VACCINE, 23-VALENT (PPSV23), ADULT OR IMMUNOSUPPRESSED PATIENT DOSAGE, WHEN ADMINISTERED TO INDIVIDUALS 2 YEARS OR OLDER, FOR SUBCUTANEOUS OR INTRAMUSCULAR USE 007 [facility] Telephone calls by a registered nurse to a disease management program member for monitoring purposes; per month 019 LUIS EDUARDO QUINONEZ [facility] Disease management program, follow-up/luz e ment 018 JERRY CHENG [facility] Non-Physician Phone Call To Patient/Provider Brief (5-10min) Non-Physician Phone Call To Patient/Provider Brief (5-10min) [phone] UBALDO GRANT Diabetic indicator; retinal eye exam, dilated, bilateral 017 NASREEN FERNÁNDEZ [employer] Fitting Bifocal Except For Aphakia Spectacles Services Fitting Bifocal Except For Aphakia [phone] NASREEN FERNÁNDEZ Determination Of Refractive State Determination Of Refractive State [phone] NASREEN FERNÁNDEZ Ophthalmological Prior Patient Start Comprehensive Care Ophthalmological Prior Patient Start Comprehensive Care [phone] NASREEN FERNÁNDEZ [facility] Telephone calls by a registered nurse to a disease management program member for monitoring purposes; per month 017 LUIS EDUARDO QUINONEZ [facility] Non-Physician Phone Call To Patient/Provider Brief (5-10min) Non-Physician Phone Call To Patient/Provider Brief (5-10min) [phone] LUIS EDUARDO QUINONEZ [facility] Disease management program, follow-up/luz e ment 017 JARROD WU [facility] Telephone calls by a registered nurse to a disease management program member for monitoring purposes; per month 017 LUIS EDUARDO QUINONEZ [facility] Non-Physician Phone Call To Patient/Provider Brief (5-10min) Non-Physician Phone Call To Patient/Provider Brief (5-10min) [phone] LUIS EDUARDO QUINONEZ [facility] Non-Physician Phone Call To Patient/Provider Brief (5-10min) Non-Physician Phone Call To Patient/Provider Brief (5-10min) [phone] UBALDO GRANT [facility] Disease management program, follow-up/luz e ment 016 JARROD WU [facility] Non-Physician Phone Call To Patient/Provider Brief (5-10min) Non-Physician Phone Call To Patient/Provider Brief (5-10min) [phone] UBALDO GRANT [facility] Telephone calls by a registered nurse to a disease management program member for monitoring purposes; per month 016 LUIS EDUARDO QUINONEZ [facility] Non-Physician Phone Call To Patient/Provider Brief (5-10min) Non-Physician Phone Call To Patient/Provider Brief (5-10min) [phone] LUIS EDUARDO QUINONEZ [facility] Telephone calls by a registered nurse to a disease management program member for monitoring purposes; per month 016 LUIS EDUARDO QUINONEZ [facility] Non-Physician Phone Call To Pt/Provider Intermed (11-20 min) Non-Physician Phone Call To Pt/Provider Intermed (11-20 min) [phone] LUIS EDUARDO QUINONEZ [facility] Disease management program, follow-up/luz e ment 016 JAS HILL [facility] Telephone calls by a registered nurse to a disease management program member for monitoring purposes; per month 016 LUIS EDUARDO QUINONEZ [facility] Non-Physician Phone Call To Patient/Provider Brief (5-10min) Non-Physician Phone Call To Patient/Provider Brief (5-10min) [phone] LUIS EDUARDO QUINONEZ [facility] Diabetic indicator; retinal eye exam, dilated, bilateral 015 MO CARTY [facility] Determination Of Refractive State Determination Of Refractive State [phone] MO CARTY [facility] Ophthalmological Prior Patient Start Comprehensive Care Ophthalmological Prior Patient Start Comprehensive Care [phone] MO CARTY [facility] Disease management program, follow-up/luz e ment 015 NICKOLAS SADLER [facility] Non-Physician Phone Call To Patient/Provider Brief (5-10min) Non-Physician Phone Call To Patient/Provider Brief (5-10min) [phone] UBALDO GRANT [facility] Non-Physician Phone Call To Patient/Provider Brief (5-10min) Non-Physician Phone Call To Patient/Provider Brief (5-10min) [phone] MIGUEL MAZARIEGOS [facility] Diabetic indicator; retinal eye exam, dilated, bilateral 013 LETTY CLEARY [employer] Fitting Bifocal Except For Aphakia Spectacles Services Fitting Bifocal Except For Aphakia [phone] LETTY CLEARY Determination Of Refractive State Determination Of Refractive State [phone] LETTY CLEARY Ophthalmological Prior Patient Start Comprehensive Care Ophthalmological Prior Patient Start Comprehensive Care [phone] LETTY CLEARY Non-Physician Phone Call To Patient/Provider Brief (5-10min) Non-Physician Phone Call To Patient/Provider Brief (5-10min) [phone] MIGUEL MAZARIEGOS [facility] Non-Physician Phone Call To Patient/Provider Brief (5-10min) Non-Physician Phone Call To Patient/Provider Brief (5-10min) [phone] BOBBY RUTH [facility] Non-Physician Phone Call To Patient/Provider Brief (5-10min) Non-Physician Phone Call To Patient/Provider Brief (5-10min) [phone] HARISH ECHEVARRIA [employer] [id number] 09/11 010 SAIMA RUVALCABA Visual Clay Test Intermediate Examination Visual Clay Test Intermediate Examination [id number] SAIMA RUVALCABA [employer] Fitting Bifocal Except For Aphakia Spectacles Services Fitting Bifocal Except For Aphakia [phone] SAIMA RUVALCABA Determination Of Refractive State Determination Of Refractive State [phone] SAIMA RUVALCABA Ophthalmological Prior Patient Start Comprehensive Care Ophthalmological Prior Patient Start Comprehensive Care [phone] SAIMA RUVALCABA Visual Clay Test Intermediate Examination Visual Clay Test Intermediate Examination [id number] ANOOP MARTINEZ Ophthalmological Prior Patient Start Comprehensive Care Ophthalmological Prior Patient Start Comprehensive Care [phone] ANOOP MARTINEZ [employer] Services Fitting Bifocal Except For Aphakia Spectacles Services Fitting Bifocal Except For Aphakia [phone] ANOOP MARTINEZ Determination Of Refractive State Determination Of Refractive State 32229 008 ANOOP MARTINEZ Spectacles Services Fitting Bifocal Except For Aphakia Spectacles Services Fitting Bifocal Except For Aphakia [phone] ANOOP MARTINEZ Determination Of Refractive State Determination Of Refractive State [phone] ANOOP MARTINEZ Visual Clya Test Intermediate Examination Visual Clay Test Intermediate Examination 58582 007 ANOOP MARTINEZ Ophthalmological New Patient Start Comprehensive Care Ophthalmological New Patient Start Comprehensive Care [phone] ANOOP MARTINEZ Immunization Administration By Injection, One Vaccine Immunization Administration By Injection, One Vaccine [phone] FABIEN GRANT Pneumococcal Polysaccharide Vaccine (Age 2Y+) Pneumococcal Polysaccharide Vaccine (Age 2Y+) 11589 007 FABIEN GRANT [facility] Non-Physician Phone Call To Patient/Provider Brief (5-10min) Non-Physician Phone Call To Patient/Provider Brief (5-10min) [phone] UBALDO GRANT [facility] Preventive Medicine: Foot Examination Diabetic Preventive Medicine: Foot Examination Diabetic RAINA MAY [facility] Waiver services; not otherwise specified (NOS) RAINA MAY [facility] Foot examination performed (includes examination through visual inspection, sensory exam with 10-g monofilament plus testing any one of the following: vibration using 128-Hz tuning fork, pinprick sensation, ankle reflexes, or vibration perception threshold, and pulse exam; report when all of the 3 components are completed) JONNY MOLINA [facility] Social History Combined list of available smoking, tobacco, and other social history from Department of Defense and Veterans Affairs facilities. Social History Type Response Date Comment Sourteddy e Male 05/04/2022 [facility] Tobacco Cigarette use: Former-cigarette user. Other Tobacco use: Never-other tobacco user (not cigarettes). Ambulatory Pharma cy Sexual Orientation Ambula tory Pharmacy Gender identity Ambulator y Pharmacy This section is an empty social history section. DoD Assessment and Plan Combined list of future care activities from Department of Defense and Veterans Affairs facilities (e.g., assessment and plan notes, appointments, orders, and referrals). Additional future care activities may be listed in the Plan of Care section. Result Assessment and Plan Date Source Assessment and Plan Extracted from:Title : [facility] [place] [place]-Diabetes/RxRefill_Office Clinic Note Author: JONNY BEARD DO Date: 02/01/24 1.?Diabetes mellitus type 2 Chronic, controlled Evidence of nephropathy, but no?neuropathy, or retinopathy.?HbA1C?is at goal (<7).Microalbumin/Creatinine ratio?is not at goal (>30).?Lipids?are at goal (<100)?per AHA/ACC guidelines. ? Recommendations: - Labs:?All UTD and discussed with patient. ? - Medications: Currently on Januvia 100 mg, Pioglitazone 45 mg and, Jardiance 10 mg. Will decrease Januvia to 50 mg daily due to excellent A1c at 5.9 with comorbid mild to moderate renal insufficiency. Goal A1c remains less than 7-7.5. ? - Refilled medication as appropriate. ? - Cardiovascular: [x] BP at goal (<130/80 per AHA/ACC guidelines) [x] Continue CONRADO-i/ARB therapy [x] Continue Statin therapy ? -Lifestyle Modifications: [x] Nutrition: Discussed dietary modifications (Mediterranean diet) [x] Physical activity: encouraged increased activity with goal of 150min moderate exertion weekly [x] Sleep: reviewed sleep hygiene; goal of 6-8hr/night [x] Behavioral modification: pt has good social support ? -Prevention: [x] Encouraged annual optometry evaluation; Due Spring 2024. [x] Encouraged annual dental evaluation; Due Summer/Fall 2024. [x] Annual foot examination performed' Due April?2024, no concerns. ? Follow Up: Will monitor A1c in 3 months, continue to monitor nephropathy progression. ? Ordered: glucose test strip (freestyle lite)(glucose test strip (freestyle lite)), 1 EA, N/A, As Directed, # 100 EA, 3 total refill(s), Maintenance, Supply, 1 EA N/A As Directed, Pharmacy: [facility] SITagliptin(Januvia 50 mg oral tablet), 1 tab(s), Oral, Daily, # 90 tab(s), 3 total refill(s), Maintenance, 1 tab(s) Oral Daily,x90 days, Pharmacy: [facility] [Not filled] metFORMIN(metFORMIN 1000 mg oral tablet), 1 tab(s), Oral, BID, for diabetes, # 180 tab(s), 3 total refill(s), Maintenance, 1 tab(s) Oral BID,Instr:for diabetes, Pharmacy: [facility] [Not filled] pioglitazone(pioglitazone 45 mg oral tablet), 1 tab(s), Oral, Daily, # 90 tab(s), 3 total refill(s), Maintenance, 1 tab(s) Oral Daily, Pharmacy: [facility] [Not filled] ? 2.?Hyperlipidemia ?Chronic, controlled January 2024 labs show the following: Total 148, HDL 55, LDL 67, Triglycerides?137. - Advised no immediate changes to management. - Refilled medication as appropriate. - Follow-up annually. ? ? ? Ordered: atorvastatin(atorvastatin 80 mg oral tablet), 1 tab(s), Oral, Daily, for cholesterol, # 90 tab(s), 3 total refill(s), Maintenance, 1 tab(s) Oral Daily,Instr:for cholesterol, Pharmacy: [facility] [Not filled] ? 3.?Chronic kidney disease stage 3 ?Chronic, controlled Actively managed by explosive ordnance manager. Most recent GFR 51, Creatinine 1.4. - Advised to continue with outpatient nephrology for continued monitoring and management. - Follow-up as needed. ? ? ? 4.?Hypokalemia Acute, uncontrolled Due to low borderline value,?counseled to continue?lifestyle and dietary changes. [employer] Instrument Repairer provided by explosive ordnance manager. - Recommended patient try to eat a banana a day to bolster potassium levels. - Advised recheck in 1 week w/virtual?follow-up visit with?basic metabolic panel. ? ? ? 5.?Essential hypertension ?Chronic, controlled Hx of hypertension. Today 131/80. - Refilled medication as appropriate. - Follow-up as needed. ? ? Ordered: hydroCHLOROthiazide(hydroCHLOROthi azide 12.5 mg oral capsule), 1 cap(s), Oral, Daily, for blood pressure, # 90 cap(s), 3 total refill(s), Maintenance, 1 cap(s) Oral Daily,Instr:for blood pressure, Pharmacy: [facility] [Not filled] lisinopril(lisinopril 20 mg oral tablet), 1 tab(s), Oral, Daily, for blood pressure, # 90 tab(s), 3 total refill(s), Maintenance, 1 tab(s) Oral Daily,Instr:for blood pressure, Pharmacy: [facility] [Not filled] ? 6.?Seasonal allergic rhinitis ?Chronic, controlled Hx of seasonal allergies. - Refilled medication as appropriate. - Follow-up as needed. ? ? Ordered: fluticasone nasal(Flonase Allergy Relief 50 mcg/inh nasal spray), 1 spray(s), Nostril-Both, Daily, shake well before using, # 16 g, 3 total refill(s), Maintenance, 1 spray(s) Nostril-Both Daily,Instr:shake well before using, Pharmacy: [facility] [Not filled] cetirizine(ZyrTEC 10 mg oral tablet), 1 tab(s), Oral, Daily, PRN allergy symptoms, # 90 tab(s), 3 total refill(s), Maintenance, 1 tab(s) Oral Daily,PRN:allergy symptoms, Pharmacy: [facility] [Not filled] ? Capt Lilly LIMON), [facility] Arc Cutter Plasma Arc Physician, PGY-3 [facility] Operations [employer]/SGGF,?[place] [address] [facility] Family Medicine Residency [facility] [address] [facility] [place], [address],?[place] [address] ? ? ? Addendum by NICKOLAS BERNARD MD on February 07, 2024 15:55:24 MALT LOADER I certify that I was immediately available to review and discuss this patient.?The resident discussed the diagnosis and treatment plan for this patient with me [id number].??I agree with these written findings and plan. ? Joaquín?Nickolas Bernard DO, CAQSM [facility]/Family Medicine Faculty Physician [address] [place] [address] Group, HCOS/SGGF [facility] [place], [place] ? Extracted from:Title: Fam Med - CKD Virt Author: NOAH GRACE MD Date: 06/23/23 1.?Chronic kidney disease stage 3 Patient is a 77 year old male with stage 3 chronic kidney disease. Presented requested labs from explosive ordnance manager. Ordered as below. When completed will print from [employer] and leave at front edger for patient to present to nephrology. ? ? Ordered: DELFINA Screen Panel Basic Metabolic Panel CBC w/ Diff CK Total+Isoenzymes [id number] Complement C3 [id number] Complement C4 [id number] Complement Total (CH50) [id number] Creatinine Level Immunofixation Ur [id number] Immunofixation, Serum [id number] Corona/Lambda Light Chains, Free [id number] PTH Intact+Calcium [id number] Sedimentation Rate-Westergren [id number] Uric Acid, 24 Hour Urine [id number] Urinalysis with Microscopic and Culture if Indicated US Kidney Left US Kidney Right ? Noah Grace MD PGY-3 Family [facility] [place] ? Addendum by ALICE FINCH MD on June 23, 2023 10:21:04 CDT I certify that I was present for case discussion in the Family Medicine preceptor room at the time of this encounter. I have reviewed the note and agree with the findings, assessment, and plan except as I have documented below. Follow up as listed. All labs/imaging/consults to be followed by the ordering provider. ? Capt Lilly Lundberg) Family Medicine Physician [facility] [place], [place] Extracted from:Title: DM/NephroLabs_Office Clinic Note Author: JONNY BEARD, Date: 05/07/23 1.?Chronic kidney disease stage 3 Chronic, uncontrolled Pt labs were concerning for G3aA3 kidney staging, with a microalbumin level of 262, and a creatinine level of 1.4. Pt does not currently follow with a explosive ordnance manager. - Nephrology referral placed and will follow closely. - Counseled on kidney protective diet until further workup. ? ? Ordered: Referral Request 2.0 ? 2.?Diabetes mellitus type 2 Acute,?uncontrolled? Evidence of nephropathy, but no?neuropathy, or retinopathy.?HbA1C? is at goal (<7).?Microalbumin/Creatinine ratio?is not at goal (>30).?Lipids?are at goal (<100)?per AHA/ACC guidelines. ? Recommendations: - Labs:?All UTD and discussed with patient. ? - Medications: Ladarius continue oral hypoglycemic medications due to not meeting criteria for GLP-1 agonist?transition per insurance guidelines. - Continue Januvia 100 mg, Pioglitazone 45 mg, Metformin 1000 mg, Jardiance 10 mg. ? - Cardiovascular: [x] BP at goal (<130/80 per AHA/ACC guidelines) [x] Continue CONRADO-i/ARB therapy [x] Continue Statin therapy ? -Lifestyle Modifications: [x] Nutrition: Referral placed; discussed dietary modifications (Mediterranean diet) [x] Physical activity: encouraged increased activity with goal of 150min moderate exertion weekly [x] Sleep: reviewed sleep hygiene; goal of 6-8hr/night [x] Behavioral modification: pt has good social support ? -Prevention: [x] Encouraged annual optometry evaluation [x] Encouraged annual dental evaluation [x] Annual foot examination performed: ? Follow Up: Will discuss inability to?transition to GLP1 on future phone call, continue to monitor nephropathy progression. Goal A1C: <6.5% per AACE guidelines or <7% per ADA guidelines ? Ordered: glucose test strip (freestyle lite)(glucose test strip (freestyle lite)), 1 EA, N/A, As Directed, # 100 EA, 3 total refill(s), Maintenance, Supply, [facility] [[facility] filled] SITagliptin(Januvia 100 mg oral tablet), 1 tab(s), Oral, Daily, # 90 tab(s), 2 total refill(s), Maintenance, 1 tab(s) Oral Daily, Pharmacy: [facility] [Not filled] empagliflozin(Jardiance 10 mg oral tablet), 1 tab(s), Oral, every morning, # 90 tab(s), 2 total refill(s), Maintenance, 1 tab(s) Oral every morning,x90 days, Pharmacy: [facility] [Not filled] metFORMIN(metFORMIN 1000 mg oral tablet), 1 tab(s), Oral, BID, for diabetes, # 180 tab(s), 2 total refill(s), Maintenance, 1 tab(s) Oral BID,Instr:for diabetes, Pharmacy: [facility] [Not filled] pioglitazone(pioglitazone 45 mg oral tablet), 1 tab(s), Oral, Daily, # 90 tab(s), 2 total refill(s), Maintenance, 1 tab(s) Oral Daily, Pharmacy: [facility] [Not filled] ? 3.?Seasonal allergic rhinitis Chronic, well-controlled Pt reports no a/e or s/e on current medication. - Refilled Flonase spray?and Zyrtec 10 mg po qd. - Follow-up as needed ? ? Ordered: fluticasone nasal(Flonase Allergy Relief 50 mcg/inh nasal spray), 1 spray(s), Nostril-Both, Daily, shake well before using, # 16 g, 2 total refill(s), Maintenance, 1 spray(s) Nostril-Both Daily,Instr:shake well before using, Pharmacy: [facility] [Not filled] cetirizine(ZyrTEC 10 mg oral tablet), 1 tab(s), Oral, Daily, PRN allergy symptoms, # 90 tab(s), 2 total refill(s), Maintenance, 1 tab(s) Oral Daily,PRN:allergy symptoms, Pharmacy: [facility] [Not filled] ? 4.?Hyperlipidemia Chronic, well-controlled Pt reports no a/e or s/e on current medication. - Refilled Atorvastatin 80 mg po qd. - Follow-up as needed ? ? Ordered: atorvastatin(atorvastatin 80 mg oral tablet), 1 tab(s), Oral, Daily, for cholesterol, # 90 tab(s), 2 total refill(s), Maintenance, 1 tab(s) Oral Daily,Instr:for cholesterol, Pharmacy: [facility] [Not filled] ? 5.?Essential hypertension Chronic, well-controlled Pt reports no a/e or s/e on current medication. - Refilled lisinopril 20 mg po qd and HCTZ 12.5 mg po qd. - Follow-up as needed ? ? Ordered: hydroCHLOROthiazide(hydroCHLOROthi azide 12.5 mg oral capsule), 1 cap(s), Oral, Daily, for blood pressure, # 90 cap(s), 2 total refill(s), Maintenance, 1 cap(s) Oral Daily,Instr:for blood pressure, Pharmacy: [facility] [Not filled] lisinopril(lisinopril 20 mg oral tablet), 1 tab(s), Oral, Daily, for blood pressure, # 90 tab(s), 2 total refill(s), Maintenance, 1 tab(s) Oral Daily,Instr:for blood pressure, Pharmacy: [facility] [Not filled] ? Captain Jonny Sue DO Arc Cutter Plasma Arc Physician, PGY-[address] [place] [address] Operations [facility]? [place] [address] ? Addendum by OTILIA JONES DO on June 22, 2023 15:00:31 CDT I certify that I was present for case discussion in the Family Medicine preceptor room at the time of this encounter. I have reviewed the note and agree with the findings, assessment, and plan except as I have documented below. Follow up as listed. All labs/imaging/consults to be followed by the ordering provider. ? Maj Otilia Jones DO? Family Medicine-Obstetrics?Physician Ant Esparza allon [facility] [id number] [place] [facility] [place] Future Scheduled TestsLaboratoryUrine Culture, Routine LC MB [id number] 07/07/23PTH Intact [id number] 03/01/24Protein and Creatinine Ur [id number] 03/01/24Renal Function Panel 03/01/24Basic Metabolic Panel 03/01/24CBC w/ Diff 03/01/24 04/02/2024 Ambulatory Pharmacy Functional Status Combined list of recent functional and cognitive assessments recorded at [facility] [employer] [facility] Functional Evangeline Measurement (FIM) Scale: 1 = Total Assistance (Subject = 0% +), 2 = Maximal Assistance (Subject = 25% +), 3 = Moderate Assistance (Subject = 50% +), 4 = Minimal Assistance (Subject = 75% +), 5 = Supervision, 6 = Modified Evangeline (Device), 7 = Complete Evangeline (Timely, Safely). Assessment Date/Time Source Assessment Type Assessment Skill Assessment Score Assessment Details No data available for this section
== END 2024-03-26 15:35 | disposition home or self-care (01) ==
PROVIDERS: PCP Otolaryngology; Visit Provider Urology
PROC: 0TJB8ZZ Inspection of Bladder, Via Natural or Artificial Opening Endoscopic (ICD-10-PCS; CPT 52000; principal; 2024-03-26 12:45)
DX: N30.20 Other chronic cystitis without hematuria (principal); E78.5 Hyperlipidemia, unspecified; I10 Essential (primary) hypertension; E11.9 Type 2 diabetes mellitus without complications; Z79.85 Long-term (current) use of injectable non-insulin antidiabetic drugs; Z79.84 Long term (current) use of oral hypoglycemic drugs; Z87.891 Personal history of nicotine dependence
CPT/HCPCS: 52204; 82948; 88305; J0690; J2405; J2704; J3010; J7120